=== PATIENT | male | born 1960 | race Caucasian/White ===

== ENCOUNTER → 2017-06-24 11:40 | Outpatient (CLI) | payer OTHER, SELFPAY ==
[2017-06-24 11:56] LABS: Basophils # 0.1 K/mm3 (0-0.2); Basophils % 1.1 % (0.1-2.0); Eosinophils # 0.2 K/mm3 (0.0-0.4); Eosinophils % 2.3 % (0.1-12.0); Hematocrit 40.9 % (42.0-52.0); Hemoglobin 12.8 g/dL (14.1-18.0); Lymphocytes # 2.1 K/mm3 (0.7-4.5); Lymphocytes % 31.3 K/mm3 (10-50); Mean Corpuscular HGB Conc 31.3 g/dL (31.8-35.4); Mean Corpuscular Hemoglobin 32.6 pg (27.0-31.2); Mean Platelet Volume 8.1 fl (7.4-10.4); Monocytes # 0.6 K/mm3 (0.1-1.0); Monocytes % 9.4 % (1.7-9.3); Neutrophils # 3.7 K/mm3 (1.8-7.8); Platelet Count 370 K/mm3 (142-424); Red Blood Count 3.93 M/mm3 (4.60-6.20); Red Cell Distribution Width 13.1 % (11.5-17.5); White Blood Count 6.7 K/mm3 (4.8-10.8)
[2017-06-24 14:18] LABS: Alanine Aminotransferase 21 U/L (12-78); Albumin Level 3.4 gm/dL (3.4-5.0); Albumin/Globulin Ratio 0.9 (1.1-1.8); Alkaline Phosphatase 68 U/L (46-116); Anion Gap 13.3 mEq/L (5-15); Aspartate Amino Transferase 11 U/L (15-37); Bilirubin,Total 0.6 mg/dL (0.2-1.0); Blood Urea Nitrogen 13 mg/dL (7-18); Calcium 9.1 mg/dL (8.5-10.1); Carbon Dioxide 28 mmol/L (21.0-32.0); Chloride 102 mmol/L (98-107); Creatinine,Serum 0.87 mg/dL (0.70-1.30); Estimated Glomerular Filt Rate 90 ml/min (>60); GFR (African American) 109 ML/MIN (>60); Globulin 3.6 gm/dl (1.3-3.2); Glucose 133 mg/dL (74-106); Potassium 5.3 mmoL/L (3.5-5.1); Sodium 138 mmol/L (136-145)
[2017-06-26 12:11] LABS: HBV IU/mL HBV DNA not detected IU/mL (.)
== END ==
PROVIDERS: PCP Emergency Medicine; Visit Provider Nurse Practitioner Family
DX: B18.2 Chronic viral hepatitis C (principal); Z79.899 Other long term (current) drug therapy
CPT/HCPCS: 36415; 80053; 85025; 87517

== ENCOUNTER → 2017-08-09 10:33 | Outpatient (CLI) | payer OTHER, SELFPAY ==
[2017-08-09 11:16] LABS: Alanine Aminotransferase 17 U/L (12-78); Albumin Level 3.6 gm/dL (3.4-5.0); Albumin/Globulin Ratio 0.9 (1.1-1.8); Alkaline Phosphatase 86 U/L (46-116); Anion Gap 10.9 mEq/L (5-15); Aspartate Amino Transferase 11 U/L (15-37); Bilirubin,Total 0.6 mg/dL (0.2-1.0); Blood Urea Nitrogen 17 mg/dL (7-18); Calcium 9.2 mg/dL (8.5-10.1); Carbon Dioxide 30 mmol/L (21.0-32.0); Chloride 99 mmol/L (98-107); Creatinine,Serum 1.07 mg/dL (0.70-1.30); Estimated Glomerular Filt Rate 71 ml/min (>60); GFR (African American) 86 ML/MIN (>60); Globulin 4.1 gm/dl (1.3-3.2); Glucose 327 mg/dL (74-106); Potassium 4.9 mmoL/L (3.5-5.1); Sodium 135 mmol/L (136-145); Total Protein,Serum 7.7 gm/dL (6.4-8.2)
[2017-08-09 11:32] LABS: Basophils # 0.1 K/mm3 (0-0.2); Basophils % 0.8 % (0.1-2.0); Eosinophils # 0.2 K/mm3 (0.0-0.4); Eosinophils % 2.8 % (0.1-12.0); Hematocrit 42.1 % (42.0-52.0); Hemoglobin 13.4 g/dL (14.1-18.0); Lymphocytes # 2.5 K/mm3 (0.7-4.5); Lymphocytes % 33.9 K/mm3 (10-50); Mean Corpuscular HGB Conc 31.7 g/dL (31.8-35.4); Mean Corpuscular Hemoglobin 33.4 pg (27.0-31.2); Mean Corpuscular Volume 105.2 fl (80-94); Monocytes # 0.7 K/mm3 (0.1-1.0); Monocytes % 9.1 % (1.7-9.3); Neutrophils # 3.9 K/mm3 (1.8-7.8); Neutrophils % 53.6 % (37.0-80.0); Platelet Count 382 K/mm3 (142-424); Red Cell Distribution Width 12.7 % (11.5-17.5); White Blood Count 7.2 K/mm3 (4.8-10.8)
== END ==
PROVIDERS: Visit Provider Nurse Practitioner Family
DX: B18.2 Chronic viral hepatitis C (principal); Z79.899 Other long term (current) drug therapy
CPT/HCPCS: 36415; 80053; 85025; 87522

== ENCOUNTER 2017-08-18 19:41 | Emergency (ER) | payer OTHER, SELFPAY ==
[2017-08-18 19:42] VITALS: BP 158/87; PULSE 101; RESP 20; TEMP 39.6; O2SAT 95; BMI 20.9
--- NOTE | 2017-08-18 19:59 | XR_ITS ---
XR chest 2V HISTORY: ITS.REASON: SOA ORDERING PHYSICIAN: Hola Esquivel MD PATIENT AGE: 57 years COMPARISON: 06/16/2015 FINDINGS: The cardiomediastinal silhouette and pulmonary vascularity are within normal limits. There is chronic coarsening of bronchovascular markings consistent with COPD/chronic bronchitis. No lobar consolidation or collapse. Old granulomatous disease.. No acute bony abnormalities. IMPRESSION: COPD/chronic bronchitis, no change with no acute finding
--- NOTE | 2017-08-18 20:20 | HMH.EDSOB ---
ED Disposition Clinical Impression: Flu Disposition: Home, Self-Care Condition on Discharge: Good Instructions: Influenza Additional Instructions: advil/tyenol and use meds and see pcp for followup Prescriptions: Oseltamivir Phosphate [Tamiflu 75mg Capsule] 75 mg PO BID #10 cap Referrals: Leandra Bassett APRN [Primary Care Provider] - - Critical Care Critical Care Time: No Attestation: On , the high probability of a clinically significant, sudden or life threatening deterioration of the following system(s) required my full and direct attention, intervention and personal management. The time I documented below is in addition to time spent performing reported procedures but includes the following listed in this critical care notation. Medical Decision Making - Medical Records Medical records reviewed: Yes: I reviewed the patient's medical records. - Aung Inquiry Pt receiving controlled substance: No Vital Signs: 08/18/17 19:42 08/18/17 20:40 Temperature 103.3 F H 103.1 F H Temperature Source Temporal Artery Scan Temporal Artery Scan Pulse Rate [Right Brachial] 101 H 102 H Respiratory Rate 20 18 Blood Pressure [Right Arm] 158/87 131/76 Blood Pressure Mean [Right Arm] 110 94 02 Sat by Pulse Oximetry 95 92 L Oxygen Delivery Method Nasal Cannula Nasal Cannula Oxygen Flow Rate (LPM) 2 2 - Lab Data Lab results reviewed: Yes: I reviewed the patient's lab results. Lab Results 08/18/17 20:08: Influenza Type A Ag Positive A, Influenza Type B Ag Negative, Group A Strep Rapid Negative 08/18/17 20:40: WBC 8.0, RBC 3.82 L, Hgb 12.8 L, Hct 39.1 L, MCV 102.3 H, MCH 33.5 H, MCHC 32.7, RDW 12.6, Plt Count 247, MPV 8.2, Neut % (Auto) 75.2, Lymph % (Auto) 11.1, [place] % (Auto) 12.8 H, Eos % (Auto) 0.3, Baso % (Auto) 0.6, Neut # (Auto) 6.0, Lymph # (Auto) 0.9, [place] # (Auto) 1.0, Eos # (Auto) 0.0, Baso # (Auto) 0.0 08/18/17 20:40: Sodium 128 L, Potassium 4.6, Chloride 93 L, Carbon Dioxide 27, Anion Gap 12.6, BUN 19 H, Creatinine 1.14, Estimated Creat Clear 71, Estimated GFR 66, Est GFR ( Amer) 80, Glucose 287 H, Calcium 8.8, Total Bilirubin 0.8, AST 18, ALT 19, Alkaline Phosphatase 69, Total Creatine Kinase 144, CK-MB (CK-2) < 0.5, CK-MB (CK-2) Rel Index 0.3, Troponin I < 0.02, Total Protein 8.1, Albumin 3.7, Globulin 4.4 H, Albumin/Globulin Ratio 0.8 L 08/18/17 20:40: Lactic Acid 2.8 H Result diagrams: 08/18/17 20:40 08/18/17 20:40 Orders (Tests/Meds): ED MEDICATIONS Generic Name Dose Route Start Last Admin Trade Name Freq PRN Reason Stop Dose Admin Albuterol Sulfate 2 puffs 08/18/17 21:15 Proventil-Hfa 90mcg/Puff Inhaler IH 09/17/17 21:14 Q6HP PRN Shortness Of Breath Discontinued Medications Generic Name Dose Route Start Last Admin Trade Name Freq PRN Reason Stop Dose Admin Acetaminophen 1,000 mg 08/18/17 19:59 08/18/17 20:02 Tylenol 500mg Tablet PO 08/18/17 20:00 1,000 mg ONCE ONE Administration Sodium Chloride 1,000 mls @ 999 mls/hr 08/18/17 20:30 08/18/17 20:36 Sod Chlor 0.9% 1000ml Bag IV 08/18/17 21:30 999 mls/hr .Q1H1M HUMBERTO Administration Ibuprofen 800 mg 08/18/17 19:59 08/18/17 20:02 Motrin 400mg Tablet PO 08/18/17 20:00 800 mg ONCE ONE Administration Miscellaneous 1 unit 08/18/17 21:15 Aerochamber/Optihaler MC 08/18/17 21:16 ONCE ONE ORDERS Category Date Time Status XR chest 2V Stat Exams 08/18/17 19:59 Taken Blood Culture Stat Micro 08/18/17 20:40 Received Sputum Culture & Gram Stain Stat Micro 08/18/17 21:01 Ordered Strep Screen Confirmation Stat Micro 08/18/17 20:08 Received ECG Request by /Raj Stat Y 08/18/17 19:59 Ordered - Radiology Data #1 Image(s): Chest Image Reviewed: Yes I reviewed the patient's radiology image Preliminary Findings: Normal/NAD - ECG Data Tracing #1 I reviewed this ECG and interpreted as documented below: Normal Sinus Rhythm: Yes Arrhythmias pres
[2017-08-18 20:40] VITALS: BP 131/76; PULSE 102; RESP 18; TEMP 39.5; O2SAT 92
[2017-08-18 20:44] LABS: Strep Scrn Group A (Rapid) Negative (Negative)
[2017-08-18 20:57] LABS: Basophils % 0.6 % (0.1-2.0); Eosinophils % 0.3 % (0.1-12.0); Hematocrit 39.1 % (42.0-52.0); Hemoglobin 12.8 g/dL (14.1-18.0); Lymphocytes # 0.9 K/mm3 (0.7-4.5); Lymphocytes % 11.1 K/mm3 (10-50); Mean Corpuscular HGB Conc 32.7 g/dL (31.8-35.4); Mean Corpuscular Hemoglobin 33.5 pg (27.0-31.2); Mean Corpuscular Volume 102.3 fl (80-94); Mean Platelet Volume 8.2 fl (7.4-10.4); Monocytes % 12.8 % (1.7-9.3); Neutrophils % 75.2 % (37.0-80.0); Platelet Count 247 K/mm3 (142-424); Red Blood Count 3.82 M/mm3 (4.60-6.20); Red Cell Distribution Width 12.6 % (11.5-17.5)
--- NOTE | 2017-08-18 20:59 | PC.NURSE ---
PT ARRIVED WITH THIS IV WAS PLACED PER EMS; LAB ALSO DRAWN X1 HERE VIA [facility].
[2017-08-18 21:21] LABS: Lactic Acid 2.8 mmol/L (0.4-2.0)
[2017-08-18 21:27] LABS: Alanine Aminotransferase 19 U/L (12-78); Albumin Level 3.7 gm/dL (3.4-5.0); Albumin/Globulin Ratio 0.8 (1.1-1.8); Alkaline Phosphatase 69 U/L (46-116); Anion Gap 12.6 mEq/L (5-15); Aspartate Amino Transferase 18 U/L (15-37); Bilirubin,Total 0.8 mg/dL (0.2-1.0); Blood Urea Nitrogen 19 mg/dL (7-18); Calcium 8.8 mg/dL (8.5-10.1); Carbon Dioxide 27 mmol/L (21.0-32.0); Chloride 93 mmol/L (98-107); Creatine Kinase 144 U/L (39-308); Creatinine Clearance Estimated 71 mL/min (0-300); Creatinine,Serum 1.14 mg/dL (0.70-1.30); Estimated Glomerular Filt Rate 66 ml/min (>60); GFR (African American) 80 ML/MIN (>60); Globulin 4.4 gm/dl (1.3-3.2); Glucose 287 mg/dL (74-106); Potassium 4.6 mmoL/L (3.5-5.1); Sodium 128 mmol/L (136-145); Total Protein,Serum 8.1 gm/dL (6.4-8.2); Troponin I < 0.02 ng/ml (0.00-0.06)
[2017-08-18 21:29] LABS: CKMB Relative Index 0.3 U/L (0-4.0); Creatine Kinase MB < 0.5 ng/ml (0.0-3.6)
[2017-08-18 21:40] VITALS: BP 131/76; PULSE 102; RESP 16; TEMP 38.6; O2SAT 95
[2017-08-18 22:54] VITALS: BP 117/71; PULSE 88; RESP 14; TEMP 37.2; O2SAT 92
--- NOTE | 2017-08-18 23:27 | PC.NURSE ---
PT RESTING IN BED AT THIS TIME, NO SIGNS OF DISTRESS NOTED.
[2017-08-19 00:51] LABS: Reflex Lactic Add Lactic Reflex
[2017-08-19 01:24] VITALS: BP 133/82; PULSE 89; RESP 18; TEMP 37.6; O2SAT 94
== END 2017-08-19 01:26 | disposition home or self-care (01) ==
PROVIDERS: Emergency Provider Emergency Medicine; PCP Nurse Practitioner Family
DX: J10.1 Influenza due to other identified influenza virus with other respiratory manifestations (principal); Z88.0 Allergy status to penicillin
CPT/HCPCS: 71046; 80053; 82550; 82553; 83605; 84484; 85025; 87040; 87070; 87077; 87205; 87275; 87276; 87430; 93005; 96365; 99284

== ENCOUNTER 2017-08-25 17:31 | Inpatient (IN) | payer OTHER, SELFPAY ==
[2017-08-25] VITALS (7 sets, daily range): BP systolic 90–98; BP diastolic 47–68; PULSE 74–89; RESP 16–22; TEMP 36.5–37.1; O2SAT 90–95; BMI 20.9; BMI 19.3
--- NOTE | 2017-08-25 18:03 | XR_ITS ---
XR abdomen min 2V COMPARISON: None HISTORY: Vomiting TECHNIQUE: KUB and upright abdomen FINDINGS: The upright film again shows the ill-defined pneumonic infiltrates in the left lower lobe and in the right perihilar region and right upper lobe. There is gas and stool in the transverse colon and splenic flexure and proximal descending colon. There is minimal scattered small bowel gas noted but there are no dilated loops and there are no significant air-fluid levels. No abnormal soft tissue shadows and is no free air. There is a orthopedic pin in the left femoral head and neck. IMPRESSION: Essentially nondiagnostic abdomen
--- NOTE | 2017-08-25 18:03 | XR_ITS ---
XR chest 2V COMPARISON: PA and lateral chest 08/18/2017 HISTORY: Fever and cough TECHNIQUE: PA and lateral chest FINDINGS: There is a patchy ill-defined pneumonic infiltrate in the right perihilar region and extending into the posterior segment right upper lobe. There also is minimal infiltrate in right middle lobe and right lower lobe. There may be due to minimal involvement of the left lower lobe as well. The left upper lung field is clear. Cardiac size is normal. IMPRESSION: Definite interval change from the previous chest film now with diffuse pneumonic infiltrates involving the right upper lobe and right lower lobe and minimally involving the right middle lobe and left lower lobe and suggest continued close follow-up
--- NOTE | 2017-08-25 18:06 | HMH.EDWEAK ---
ED Disposition Clinical Impression: Viral syndrome, Dehydration, Diabetes, Pneumonia, Tobacco abuse Disposition: Still a Patient Condition on Discharge: Fair Referrals: Alex Kaye MD [Primary Care Provider] - - Critical Care Critical Care Time: No Attestation: On 08/25/17, the high probability of a clinically significant, sudden or life threatening deterioration of the following system(s) required my full and direct attention, intervention and personal management. The time I documented below is in addition to time spent performing reported procedures but includes the following listed in this critical care notation. Medical Decision Making - Aung Inquiry Pt receiving controlled substance: No Aung was queried for this patient: No Vital Signs: 08/25/17 17:36 Temperature 97.7 F Temperature Source Oral Pulse Rate [Left Radial] 89 Respiratory Rate 22 Blood Pressure [Right Arm] 98/68 Blood Pressure Mean [Right Arm] 78 Blood Pressure Position [Right Arm] Supine 02 Sat by Pulse Oximetry 90 L Oxygen Delivery Method Room Air - Lab Data Lab Results 08/25/17 18:00: WBC 22.1 H*, RBC 3.62 L, Hgb 12.1 L, Hct 37.4 L, MCV 103.1 H, MCH 33.4 H, MCHC 32.4, RDW 12.5, Plt Count 368, MPV 9.9, Neut % (Auto) 87.5 H, Lymph % (Auto) 7.2 L, [place] % (Auto) 5.1, Eos % (Auto) 0.1, Baso % (Auto) 0.1, Neut # (Auto) 19.4 H, Lymph # (Auto) 1.6, [place] # (Auto) 1.1 H, Eos # (Auto) 0.0, Baso # (Auto) 0.0 08/25/17 18:00: Sodium 127 L, Potassium 4.6, Chloride 92 L, Carbon Dioxide 25, Anion Gap 14.6, BUN 31 H, Creatinine 1.11, Estimated Creat Clear 73, Estimated GFR 68, Est GFR ( Amer) 83, Glucose 269 H, Calcium 9.5, Total Bilirubin 1.2 H, AST 15, ALT 12, Alkaline Phosphatase 84, Troponin I < 0.02, Total Protein 7.6, Albumin 2.5 L, Globulin 5.1 H, Albumin/Globulin Ratio 0.5 L, Lipase 117, Plasma/Serum Alcohol 0 08/25/17 18:00: Lactic Acid 2.5 H 08/25/17 18:00: Magnesium 1.5 08/25/17 18:00: Acetone Level None detected 08/25/17 18:10: Specimen Source Right radial, O2 % 28%, ABG pH 7.44, ABG pCO2 33.9 L, ABG pO2 67.8 L, ABG HCO3 22.5, ABG Total CO2 23.5, ABG O2 Saturation 93, ABG Base Excess -1.6, Dominik Test Acceptable Result diagrams: 08/25/17 18:00 08/25/17 18:00 Orders (Tests/Meds): ED MEDICATIONS Generic Name Dose Route Start Last Admin Trade Name Freq PRN Reason Stop Dose Admin Levofloxacin/Dextrose 750 mg in 150 mls @ 100 mls/hr 08/25/17 18:15 Levofloxacin 750mg/150ml Premix IV 09/08/17 18:14 Q24H HUMBERTO Protocol Discontinued Medications Generic Name Dose Route Start Last Admin Trade Name Freq PRN Reason Stop Dose Admin Sodium Chloride 1,000 mls @ 999 mls/hr 08/25/17 18:15 Sod Chlor 0.9% 1000ml Bag IV 08/25/17 19:15 .Q1H1M HUMBERTO ORDERS Category Date Time Status XR abdomen min 2V Stat Exams 08/25/17 18:03 Taken XR chest 2V Stat Exams 08/25/17 18:03 Taken Complete Blood Count Auto Diff Stat Lab 08/25/17 18:00 Results Drug Screen,Urine Stat Lab 08/25/17 18:04 Ordered UA [Urinalysis and Microscopic] Stat Lab 08/25/17 18:03 Ordered Blood Culture Stat Micro 08/25/17 18:00 Received Medical Decision Narrative: i SPOIKE WITH Jocelyne WILL BE ADMITTED AND NOTIFIED DR Bull. Weakness HPI - General Chief complaint: Upper Respiratory Infection Stated complaint: rizo,sob,cough Time Seen by Provider: 08/25/17 17:45 Mode of Arrival: Family Vehicle Limitations: No Limitations Description of Symptoms (Recalled from ER Triage Doc. by RN): PT STATES HE WAS DIAGNOSED WITH THE FLU A WEEK AGO AND STATES HIS SYMPTOMS ARE NOT IMPROVING. PT FINISHED TAMIFLU. - History of Present Illness HPI Narrative: 57 years old male insulin-dependent diabetes with recent diagnosis of influenza who presented to the ED complaining of generalized weakness. He finished his Tamiflu but he was vomiting 10 times since he was diagonally decreased urine output. Upon arrival his systolic blood pr
--- NOTE | 2017-08-25 18:09 | ED_ITS ---
ED Disposition Clinical Impression: Viral syndrome, Dehydration, Diabetes, Pneumonia, Tobacco abuse Disposition: Still a Patient Condition on Discharge: Fair Referrals: Alex Kaye MD [Primary Care Provider] - - Critical Care Critical Care Time: No Attestation: On 08/25/17, the high probability of a clinically significant, sudden or life threatening deterioration of the following system(s) required my full and direct attention, intervention and personal management. The time I documented below is in addition to time spent performing reported procedures but includes the following listed in this critical care notation. Medical Decision Making - Aung Inquiry Pt receiving controlled substance: No Aung was queried for this patient: No Vital Signs: 08/25/17 17:36 Temperature 97.7 F Temperature Source Oral Pulse Rate [Left Radial] 89 Respiratory Rate 22 Blood Pressure [Right Arm] 98/68 Blood Pressure Mean [Right Arm] 78 Blood Pressure Position [Right Arm] Supine 02 Sat by Pulse Oximetry 90 L Oxygen Delivery Method Room Air - Lab Data Lab Results 08/25/17 18:00: WBC 22.1 H*, RBC 3.62 L, Hgb 12.1 L, Hct 37.4 L, MCV 103.1 H, MCH 33.4 H, MCHC 32.4, RDW 12.5, Plt Count 368, MPV 9.9, Neut % (Auto) 87.5 H, Lymph % (Auto) 7.2 L, [place] % (Auto) 5.1, Eos % (Auto) 0.1, Baso % (Auto) 0.1, Neut # (Auto) 19.4 H, Lymph # (Auto) 1.6, [place] # (Auto) 1.1 H, Eos # (Auto) 0.0 , Baso # (Auto) 0.0 08/25/17 18:00: Sodium 127 L, Potassium 4.6, Chloride 92 L, Carbon Dioxide 25, Anion Gap 14.6, BUN 31 H, Creatinine 1.11, Estimated Creat Clear 73, Estimated GFR 68, Est GFR ( Amer) 83, Glucose 269 H, Calcium 9.5, Total Bilirubin 1.2 H, AST 15, ALT 12, Alkaline Phosphatase 84, Troponin I < 0.02, Total Protein 7.6, Albumin 2.5 L, Globulin 5.1 H, Albumin/Globulin Ratio 0.5 L, Lipase 117, Plasma/Serum Alcohol 0 08/25/17 18:00: Lactic Acid 2.5 H 08/25/17 18:00: Magnesium 1.5 08/25/17 18:00: Acetone Level None detected 08/25/17 18:10: Specimen Source Right radial, O2 % 28%, ABG pH 7.44, ABG pCO2 33.9 L, ABG pO2 67.8 L, ABG HCO3 22.5, ABG Total CO2 23.5, ABG O2 Saturation 93 , ABG Base Excess -1.6, Dominik Test Acceptable Result diagrams: 08/25/17 18:00 08/25/17 18:00 Orders (Tests/Meds): ED MEDICATIONS Generic Name Dose Route Start Last Admin Trade Name Freq PRN Reason Stop Dose Admin Levofloxacin/Dextrose 750 mg in 150 mls @ 100 mls/hr 08/25/17 18:15 Levofloxacin 750mg/150ml Premix IV 09/08/17 18:14 Q24H HUMBERTO Protocol Discontinued Medications Generic Name Dose Route Start Last Admin Trade Name Freq PRN Reason Stop Dose Admin Sodium Chloride 1,000 mls @ 999 mls/hr 08/25/17 18:15 Sod Chlor 0.9% 1000ml Bag IV 08/25/17 19:15 .Q1H1M HUMBERTO ORDERS Category Date Time Status XR abdomen min 2V Stat Exams 08/25/17 18:03 Taken XR chest 2V Stat Exams 08/25/17 18:03 Taken Complete Blood Count Auto Diff Stat Lab 08/25/17 18:00 Results Drug Screen,Urine Stat Lab 08/25/17 18:04 Ordered UA [Urinalysis and Microscopic] Stat Lab 08/25/17 18:03 Ordered Blood Culture Stat Micro 08/25/17 18:00 Received Medical Decision Narrative: i SPOIKE WITH Jocelyne WILL BE ADMITTED AND NOTIFIED DR Bull. Weakness HPI - General Chief complaint
[2017-08-25 18:23] LABS: ABG Base Excess -1.6 mmol/L (-2.4-2.3); ABG HCO3 22.5 mmhg (22.0-26.0); ABG Oxygen Saturation 93 % (90-100); ABG PCO2 33.9 mmhg (35.0-45.0); ABG PH 7.44 mmol/L (7.35-7.45); ABG PO2 67.8 mmhg (80-100); ABG TCO2 23.5 mmhg (23-27)
[2017-08-25 18:24] LABS: Oxygen 28% %
[2017-08-25 18:25] LABS: Allen's Test Acceptable; Source Right Radial
[2017-08-25 18:34] LABS: Basophils % 0.1 % (0.1-2.0); Eosinophils % 0.1 % (0.1-12.0); Hematocrit 37.4 % (42.0-52.0); Hemoglobin 12.1 g/dL (14.1-18.0); Lymphocytes # 1.6 K/mm3 (0.7-4.5); Lymphocytes % 7.2 K/mm3 (10-50); Mean Corpuscular HGB Conc 32.4 g/dL (31.8-35.4); Mean Corpuscular Hemoglobin 33.4 pg (27.0-31.2); Mean Corpuscular Volume 103.1 fl (80-94); Mean Platelet Volume 9.9 fl (7.4-10.4); Monocytes # 1.1 K/mm3 (0.1-1.0); Monocytes % 5.1 % (1.7-9.3); Neutrophils # 19.4 K/mm3 (1.8-7.8); Neutrophils % 87.5 % (37.0-80.0); Platelet Count 368 K/mm3 (142-424); Red Blood Count 3.62 M/mm3 (4.60-6.20); Red Cell Distribution Width 12.5 % (11.5-17.5); White Blood Count 22.1 K/mm3 (4.8-10.8)
[2017-08-25 18:39] LABS: Magnesium 1.5 mg/dL (1.4-2.2)
[2017-08-25 18:42] LABS: MANUAL DIFFERENTIAL MANUAL DIFFERENTIAL (MANUAL DIFF)
[2017-08-25 18:47] LABS: Alanine Aminotransferase 12 U/L (12-78); Albumin Level 2.5 gm/dL (3.4-5.0); Albumin/Globulin Ratio 0.5 (1.1-1.8); Alkaline Phosphatase 84 U/L (46-116); Anion Gap 14.6 mEq/L (5-15); Aspartate Amino Transferase 15 U/L (15-37); Bilirubin,Total 1.2 mg/dL (0.2-1.0); Blood Urea Nitrogen 31 mg/dL (7-18); Calcium 9.5 mg/dL (8.5-10.1); Carbon Dioxide 25 mmol/L (21.0-32.0); Chloride 92 mmol/L (98-107); Creatinine Clearance Estimated 73 mL/min (0-300); Creatinine,Serum 1.11 mg/dL (0.70-1.30); Estimated Glomerular Filt Rate 68 ml/min (>60); Ethyl Alcohol 0 mg/dL (0-99); GFR (African American) 83 ML/MIN (>60); Globulin 5.1 gm/dl (1.3-3.2); Glucose 269 mg/dL (74-106); Lipase 117 u/L (73-393); Potassium 4.6 mmoL/L (3.5-5.1); Sodium 127 mmol/L (136-145); Total Protein,Serum 7.6 gm/dL (6.4-8.2); Troponin I < 0.02 ng/ml (0.00-0.06)
[2017-08-25 18:49] LABS: Acetone, Serum (Rapid) None Detected (None Detect)
[2017-08-25 18:53] LABS: Lactic Acid 2.5 mmol/L (0.4-2.0)
--- NOTE | 2017-08-25 19:42 | PC.NURSE ---
Report called to Alie
[2017-08-25 20:23] LABS: Lymphocytes % 2 % (10-50); Monocytes % 4 % (2-9); Neutrophils % 94 % (42-76); Total Cells Counted 100
[2017-08-25 20:24] LABS: Platelet Estimate Normal; RBC Morphology Normal
--- NOTE | 2017-08-25 20:42 | PC.NURSE ---
LATE ENTRY- UPON AMISSION PT WAS GIVEN MEASURING HAT & URINIAl. PT WAS EDUCATIED & INSTRUCTED TO USE FOR VOIDING FOR OUTPUT & MONITORING INPUT.
[2017-08-25 22:30] LABS: Reflex Lactic Add Lactic Reflex
[2017-08-25 23:25] LABS: Lactic Acid Follow Up (RFLX 1) 2.5 (0.4-2.0)
--- NOTE | 2017-08-25 23:26 | PC.NURSE ---
NURSE IS OBTAING PTS BP
[2017-08-25 23:30] LABS: POC Glucose,Bedside 447 (70-110)
[2017-08-26] VITALS (16 sets, daily range): BP systolic 91–107; BP diastolic 48–66; PULSE 68–87; RESP 16–24; TEMP 36.7–37.8; O2SAT 85–95; BMI 19.2
[2017-08-26 01:05] LABS: Reflex Lactic (2 hrs) Add Lactic Reflex
[2017-08-26 01:58] LABS: Lactic Acid Follow up (RFLX 2) 2.4 (0.4-2.0)
--- NOTE | 2017-08-26 03:41 | PC.NURSE ---
Since stabilizing b/p pt has rested comfortably in bed, states he does not have much pain but aches all over. complains of loose cough and is producing yellowish/brown sputum, specimen sent to lab. Pt complains of mild SOA, requested one PRN duoneb this shift. Pt girlfriend remains at bedside. Pt had episode of incontinence with bowels when first admitted, he was very concerned and stated I don't know whats wrong, I've never done this before. Pt B/P stable but still hypotensive, MAP remains over 65 post bolus of NS per MD order (see provider notification). Rhonchi noted during lung auscultation. BS active in all 4 qauds. A&Ox3. Pt tolerating 2L NC well, unable to wean at this time. No acute distress noted. Will continue to monitor.
--- NOTE | 2017-08-26 04:19 | PC.NURSE ---
nurse notified of pts temp & bp
[2017-08-26 06:27] LABS: Basophils % 0.1 % (0.1-2.0); Eosinophils % 0.2 % (0.1-12.0); Hematocrit 32.8 % (42.0-52.0); Lymphocytes % 11.4 K/mm3 (10-50); Mean Corpuscular Hemoglobin 33.2 pg (27.0-31.2); Mean Corpuscular Volume 103.5 fl (80-94); Mean Platelet Volume 9.2 fl (7.4-10.4); Monocytes # 1.2 K/mm3 (0.1-1.0); Monocytes % 6.8 % (1.7-9.3); Neutrophils # 14.6 K/mm3 (1.8-7.8); Neutrophils % 81.5 % (37.0-80.0); Platelet Count 378 K/mm3 (142-424); Red Blood Count 3.17 M/mm3 (4.60-6.20); Red Cell Distribution Width 12.5 % (11.5-17.5)
[2017-08-26 06:31] LABS: POC Glucose,Bedside 270 (70-110)
[2017-08-26 06:36] LABS: MANUAL DIFFERENTIAL MANUAL DIFFERENTIAL (MANUAL DIFF)
[2017-08-26 06:46] LABS: Alanine Aminotransferase 10 U/L (12-78); Albumin Level 1.8 gm/dL (3.4-5.0); Albumin/Globulin Ratio 0.4 (1.1-1.8); Alkaline Phosphatase 68 U/L (46-116); Anion Gap 10.2 mEq/L (5-15); Aspartate Amino Transferase 11 U/L (15-37); Bilirubin,Total 0.8 mg/dL (0.2-1.0); Blood Urea Nitrogen 25 mg/dL (7-18); Carbon Dioxide 25 mmol/L (21.0-32.0); Chloride 98 mmol/L (98-107); Creatinine Clearance Estimated 88 mL/min (0-300); Creatinine,Serum 0.84 mg/dL (0.70-1.30); Estimated Glomerular Filt Rate 94 ml/min (>60); GFR (African American) 114 ML/MIN (>60); Globulin 4.1 gm/dl (1.3-3.2); Glucose 267 mg/dL (74-106); Hemoglobin 10.6 g/dL (14.1-18.0); Magnesium 1.4 mg/dL (1.4-2.2); Phosphorous 2.3 mg/dL (2.4-4.9); Potassium 4.2 mmoL/L (3.5-5.1); Sodium 129 mmol/L (136-145); Total Protein,Serum 5.9 gm/dL (6.4-8.2)
[2017-08-26 06:55] LABS: Calcium 8.4 mg/dL (8.5-10.1)
--- NOTE | 2017-08-26 07:32 | PC.NURSE ---
REPORT GIVEN TO Nomi MORROW W/C
--- NOTE | 2017-08-26 07:36 | PC.NURSE ---
REPORT TO Juan CONN RN
--- NOTE | 2017-08-26 07:47 | HMH.PHAVTE ---
[facility] Pharmacy VTE Monitoring - Patient Demographics Admission date: 08/25/17 Report Date: 08/26/17 Time: 07:48 Allergies/Adverse Reactions: Patient Allergies Penicillins [PENICILLINS] Allergy (Unknown, Verified 08/25/17 17:47) Height: 1.83 m Weight: 64.467 kg Patient Problems: Current Active Problems Viral syndrome (Acute) Dehydration (Acute) Pneumonia (Acute) Tobacco abuse (Acute) Diabetes mellitus (Acute) - VTE Risk Labs: VTE Related Lab Results Hgb 10.6 g/dL (14.1-18.0) L D 08/26/17 06:10 Hct 32.8 % (42.0-52.0) L 08/26/17 06:10 Plt Count 378 K/mm3 (142-424) 08/26/17 06:10 BUN 25 mg/dL (7-18) H 08/26/17 06:10 Creatinine 0.84 mg/dL (0.70-1.30) D 08/26/17 06:10 Estimated Creat Clear 88 mL/min (0-300) 08/26/17 06:10 Was VTE Risk Assessment Performed: Yes VTE Score: 2 VTE Risk Level: Very Low Risk Clinical Trial Participant: No - Prophylaxis VTE Prophylaxis Ordered?: Yes Types of VTE Prophylaxis: TEDS Knee High Location of Applied Device: Bilateral Lower Extremeties
[2017-08-26 08:29] LABS: Lymphocytes % 10 % (10-50); Monocytes % 8 % (2-9); Neutrophils % 80 % (42-76); Total Cells Counted 100
[2017-08-26 08:31] LABS: Macrocytosis 1+; Platelet Estimate Normal
--- NOTE | 2017-08-26 08:43 | HMH.HP ---
*Admission Date: 08/25/17 *Chief complaint: sob *History of present illness: 57 years old male insulin-dependent diabetes with recent diagnosis of influenza who presented to the ED complaining of generalized weakness. He finished his Tamiflu but he was vomiting x10 times since he was diagnosed with decreased urine output. Upon arrival to ER systolic blood pressure was 90/60 mmhg. [facility] History I have reviewed the patient's past medical history: Yes Medical History: Reports:: Diabetes Mellitus Type 1, Diabetes Mellitus Type 2, Hepatitis (C-cleared) Denies:: Cancer, Internal Pacemaker, MRSA Laterality Cases: Left: Other Other Surgeries: Yes: Cardiac Catheterization. No: Pacemaker Amputation: No Fractures: No - *Social History Educational Level: Completed GED/General Educational Development Smoking Status: Current every day smoker Tobacco Type: cigarettes # Packs/Day (cigarettes): 1 #Yrs smoked (if former smoker): 50 Alcohol Intake: former Alcohol Intake Frequency:: holidays/special occasions only Occupational Status: employed Housing: house Household Members: significant other - Psychiatric History Expresses thoughts of harming self/others: None Suicide Plan Description: No Plan *Family Hx:: Coronary Artery Disease, Diabetes Review of Systems - Constitutional Reports body ache(s), Reports chills, Reports fever(s), Reports weakness - Eyes Denies change in vision - ENT Denies change in voice - *Cardiovascular Reports shortness of breath, Denies chest pain with activity - *Respiratory Reports change in phlegm color, Reports chest congestion, Reports cough, Reports shortness of breath, Reports shortness of breath with activity - *Gastrointestinal Denies change in bowel habits - *Genitourinary Denies painful urination, Denies urinary frequency - *Musculoskeletal Reports body aches, Denies decreased muscle mass - Integumentary/Breasts Denies rash - *Neurologic Denies abnormal hearing - Psychiatric Denies anxiety - Endocrine Denies flushing - Hematologic/Lymphatic Denies enlarged lymph nodes - Allergic/Immunologic Denies lip swelling Meds Home Medications Medication Instructions Recorded Confirmed Type aspirin 81 mg tablet,delayed 81 mg PO DAILY tab 08/08/17 08/25/17 History release carvedilol 6.25 mg tablet 6.25 mg PO BID 08/08/17 08/25/17 History insulin lispro protamine-lispro 27 unit SUB-Q AC ml 08/08/17 08/25/17 History 100 unit/mL (75-25) subcutaneous susp lisinopril 2.5 mg tablet 2.5 mg PO DAILY tab 08/08/17 08/25/17 History metformin 1,000 mg tablet 1,000 mg PO BID 08/08/17 08/25/17 History nitroglycerin 0.4 mg sublingual 0.4 mg SUBLINGUAL Q5M PRN 08/08/17 08/25/17 History tablet simvastatin 5 mg tablet 5 mg PO QPM 08/08/17 08/25/17 History Insulin Lispro Protamin/Lispro 33 units SQ HS 08/25/17 08/25/17 History [Humalog Mix 75/25 100 Units/mL 10mL Vial] Omeprazole Magnesium [Prilosec Otc 20 mg PO DAILY 08/25/17 08/25/17 History 20mg Tab] raNITIdine HCl [Zantac] 150 mg PO DAILY 08/25/17 08/25/17 History Allergies Allergy/AdvReac Type Severity Reaction Status Date / Time Penicillins [PENICILLINS] Allergy Unknown Verified 08/25/17 17:47 Exam Vital signs and Labs for Last 24 Hours: Temp Pulse Resp BP Pulse Ox 98.1 F 76 20 93/55 92 L 08/26/17 07:50 08/26/17 07:50 08/26/17 07:50 08/26/17 07:50 08/26/17 08:00 Laboratory Results - last 24 hr 08/25/17 22:45: Lactic Acid Fup @ 4Hr 2.5 H 08/25/17 23:09: POC Glucose 447 H* 08/26/17 01:30: Lactic Acid Fup @ 2Hr 2.4 H 08/26/17 06:10: WBC 18.0 H, RBC 3.17 L, Hgb 10.6 L D, Hct 32.8 L, MCV 103.5 H, MCH 33.2 H, MCHC 32.0, RDW 12.5, Plt Count 378, MPV 9.2, Neut % (Auto) 81.5 H, Lymph % (Auto) 11.4, [place] % (Auto) 6.8, Eos % (Auto) 0.2, Baso % (Auto) 0.1, Neut # (Auto) 14.6 H, Lymph # (Auto) 2.0, [place] # (Auto) 1.2 H, Eos # (Auto) 0.0, Baso # (Auto) 0.0, Total Counted 100, Neutrophils %
--- NOTE | 2017-08-26 08:46 | P.HP_ITS ---
*Admission Date: 08/25/17 *Chief complaint: sob *History of present illness: 57 years old male insulin-dependent diabetes with recent diagnosis of influenza who presented to the ED complaining of generalized weakness. He finished his Tamiflu but he was vomiting x10 times since he was diagnosed with decreased urine output. Upon arrival to ER systolic blood pressure was 90/60 mmhg. [facility] History I have reviewed the patient's past medical history: Yes Medical History: Reports:: Diabetes Mellitus Type 1, Diabetes Mellitus Type 2, Hepatitis (C-cleared) Denies:: Cancer, Internal Pacemaker, MRSA Laterality Cases: Left: Other Other Surgeries: Yes: Cardiac Catheterization. No: Pacemaker Amputation: No Fractures: No - *Social History Educational Level: Completed GED/General Educational Development Smoking Status: Current every day smoker Tobacco Type: cigarettes # Packs/Day (cigarettes): 1 #Yrs smoked (if former smoker): 50 Alcohol Intake: former Alcohol Intake Frequency:: holidays/special occasions only Occupational Status: employed Housing: house Household Members: significant other - Psychiatric History Expresses thoughts of harming self/others: None Suicide Plan Description: No Plan *Family Hx:: Coronary Artery Disease, Diabetes Review of Systems - Constitutional Reports body ache(s), Reports chills, Reports fever(s), Reports weakness - Eyes Denies change in vision - ENT Denies change in voice - *Cardiovascular Reports shortness of breath, Denies chest pain with activity - *Respiratory Reports change in phlegm color, Reports chest congestion, Reports cough, Reports shortness of breath, Reports shortness of breath with activity - *Gastrointestinal Denies change in bowel habits - *Genitourinary Denies painful urination, Denies urinary frequency - *Musculoskeletal Reports body aches, Denies decreased muscle mass - Integumentary/Breasts Denies rash - *Neurologic Denies abnormal hearing - Psychiatric Denies anxiety - Endocrine Denies flushing - Hematologic/Lymphatic Denies enlarged lymph nodes - Allergic/Immunologic Denies lip swelling Meds Home Medications Medication Instructions Recorded Confirmed Type aspirin 81 mg tablet,delayed 81 mg PO DAILY tab 08/08/17 08/25/17 History release carvedilol 6.25 mg tablet 6.25 mg PO BID 08/08/17 08/25/17 History insulin lispro protamine-lispro 27 unit SUB-Q AC ml 08/08/17 08/25/17 History 100 unit/mL (75-25) subcutaneous susp lisinopril 2.5 mg tablet 2.5 mg PO DAILY tab 08/08/17 08/25/17 History metformin 1,000 mg tablet 1,000 mg PO BID 08/08/17 08/25/17 History nitroglycerin 0.4 mg sublingual 0.4 mg SUBLINGUAL Q5M PRN 08/08/17 08/25/17 History tablet simvastatin 5 mg tablet 5 mg PO QPM 08/08/17 08/25/17 History Insulin Lispro Protamin/Lispro 33 units SQ HS 08/25/17 08/25/17 History [Humalog Mix 75/25 100 Units/mL 10mL Vial] Omeprazole Magnesium [Prilosec Otc 20 mg PO DAILY 08/25/17 08/25/17 History 20mg Tab] raNITIdine HCl [Zantac] 150 mg PO DAILY 08/25/17 08/25/17 History Allergies Allergy/AdvReac Type Severity Reaction Status Date / Time Penicillins [PENICILLINS] Allergy Unknown Verified 08/25/17 17:47 Exam Vital signs and Labs for Last 24 Hours: Temp Pulse Resp BP Pulse Ox 9
--- NOTE | 2017-08-26 13:43 | PC.NURSE ---
TRANSITIONAL CARE TEAM BEDSIDE. NURSING, CASE MANAGEMENT, PHARMACY DIETARY AND INFECTION CONTROL IN ATTENDANCE. PT HAD NO ISSUES OR COMPLAINTS AND STATES THAT HI S PNEUMONIA IS IMPROVING.
--- NOTE | 2017-08-26 17:58 | PC.NURSE ---
PATIENT HAS BEEN RESTING IN BED T/O SHIFT WITH FAMILY AT BEDSIDE. LUNGS ARE DIMINISHED T/O. PATIENT HAS A DRY HACKY COUGH. PATIENT STATES THAT HE IS FEELING BETTER. PATIENT HAS A RESTING ROOM AIR SAT OF 88% THIS AFTERNOON. THIS EVENING HE WENT FOR A WALK IN THE [place] ON [address] AND BECAME WINDED HIS O2 SAT WAS 84% AT THAT TIME. PATIENT STATES THAT HE HAS SOME OUTPATIENT LAB WORK HE WOULD LIKE TO GET DONE WHILE HE IS IN THE HOSPITAL. THIS LAB WORK IS A FOLLOWUP FROM HIS HEP C DIAGNOSIS AND 8 WEEK TREATMENT. DENIES PAIN AT THIS TIME. CALL LIGHT WITHIN REACH WILL CONTINUE TO MONITOR
[2017-08-26 18:50] LABS: POC Glucose,Bedside 346 (70-110)
[2017-08-26 18:50] LABS: POC Glucose,Bedside 271 (70-110)
[2017-08-27] VITALS (9 sets, daily range): BP systolic 95–117; BP diastolic 57–72; PULSE 71–88; RESP 16–20; TEMP 36.6–37.6; O2SAT 92–100
[2017-08-27 01:53] LABS: POC Glucose,Bedside 168 (70-110)
--- NOTE | 2017-08-27 03:37 | PC.NURSE ---
Pt has rested well this shift with no complaints, denies SOA but states he still feels achy. Lung sounds clear. BS active in all 4 qauds. Tolerating 2L NC well. VSS. No acute distress noted, will continue to monitor.
[2017-08-27 06:14] LABS: POC Glucose,Bedside 131 (70-110)
[2017-08-27 07:06] LABS: Basophils % 0.2 % (0.1-2.0); Eosinophils # 0.1 K/mm3 (0.0-0.4); Eosinophils % 0.3 % (0.1-12.0); Hematocrit 34.5 % (42.0-52.0); Hemoglobin 11.1 g/dL (14.1-18.0); Lymphocytes # 2.4 K/mm3 (0.7-4.5); Lymphocytes % 13.9 K/mm3 (10-50); Mean Corpuscular HGB Conc 32.3 g/dL (31.8-35.4); Mean Corpuscular Hemoglobin 33.2 pg (27.0-31.2); Mean Corpuscular Volume 102.7 fl (80-94); Mean Platelet Volume 9.5 fl (7.4-10.4); Monocytes # 1.6 K/mm3 (0.1-1.0); Monocytes % 9.5 % (1.7-9.3); Neutrophils % 76.1 % (37.0-80.0); Platelet Count 505 K/mm3 (142-424); Red Blood Count 3.36 M/mm3 (4.60-6.20); Red Cell Distribution Width 12.5 % (11.5-17.5); White Blood Count 17.1 K/mm3 (4.8-10.8)
[2017-08-27 07:09] LABS: Alanine Aminotransferase 9 U/L (12-78); Albumin Level 1.8 gm/dL (3.4-5.0); Albumin/Globulin Ratio 0.4 (1.1-1.8); Alkaline Phosphatase 58 U/L (46-116); Anion Gap 9.9 mEq/L (5-15); Aspartate Amino Transferase 10 U/L (15-37); Bilirubin,Total 0.8 mg/dL (0.2-1.0); Blood Urea Nitrogen 16 mg/dL (7-18); Calcium 8.6 mg/dL (8.5-10.1); Carbon Dioxide 27 mmol/L (21.0-32.0); Chloride 101 mmol/L (98-107); Creatinine Clearance Estimated 108 mL/min (0-300); Creatinine,Serum 0.69 mg/dL (0.70-1.30); Estimated Glomerular Filt Rate 118 ml/min (>60); GFR (African American) 143 ML/MIN (>60); Globulin 4.4 gm/dl (1.3-3.2); Glucose 122 mg/dL (74-106); Potassium 3.9 mmoL/L (3.5-5.1); Sodium 134 mmol/L (136-145); Total Protein,Serum 6.2 gm/dL (6.4-8.2)
[2017-08-27 07:19] LABS: MANUAL DIFFERENTIAL MANUAL DIFFERENTIAL (MANUAL DIFF)
--- NOTE | 2017-08-27 07:47 | PC.NURSE ---
REPORT TO Juan CONN RN
--- NOTE | 2017-08-27 08:45 | HMH.ACPN2 ---
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 - pt with cough and o2 at this time Exam Vital signs and Labs for Last 24 Hours: Temp Pulse Resp BP Pulse Ox 98.2 F 82 16 112/64 100 08/27/17 07:45 08/27/17 07:45 08/27/17 07:45 08/27/17 07:45 08/27/17 07:45 Laboratory Results - last 24 hr 08/26/17 11:21: POC Glucose 346 H* 08/26/17 16:45: POC Glucose 271 H 08/26/17 20:17: POC Glucose 168 H 08/27/17 06:07: POC Glucose 131 H 08/27/17 06:10: WBC 17.1 H, RBC 3.36 L, Hgb 11.1 L, Hct 34.5 L, MCV 102.7 H, MCH 33.2 H, MCHC 32.3, RDW 12.5, Plt Count 505 H D, MPV 9.5, Neut % (Auto) 76.1, Lymph % (Auto) 13.9, [place] % (Auto) 9.5 H, Eos % (Auto) 0.3, Baso % (Auto) 0.2, Neut # (Auto) 13.0 H, Lymph # (Auto) 2.4, [place] # (Auto) 1.6 H, Eos # (Auto) 0.1, Baso # (Auto) 0.0 08/27/17 06:10: Sodium 134 L, Potassium 3.9, Chloride 101, Carbon Dioxide 27, Anion Gap 9.9, BUN 16 D, Creatinine 0.69 L, Estimated Creat Clear 108, Estimated GFR 118, Est GFR ( Amer) 143 D, Glucose 122 H D, Calcium 8.6, Total Bilirubin 0.8, AST 10 L, ALT 9 L, Alkaline Phosphatase 58, Total Protein 6.2 L, Albumin 1.8 L, Globulin 4.4 H, Albumin/Globulin Ratio 0.4 L I & O for Last 24 hours: Intake & Output 08/24/17 08/25/17 08/26/17 08/27/17 11:59 11:59 11:59 11:59 Intake Total 3151 / 3151 1375 / 1375 Output Total 1700 / 1700 1750 / 1750 Balance 1451 / 1451 -375 / -375 Weight 142 lb 2 oz 142 lb 2.006 oz Microbiology Reports for the Last 24 Hours: Microbiology 08/26/17 08:00 Sputum - Expectorated Sputum Gram Stain - Final - Constitutional no acute distress - *Routine HEENT Exam Head: Present: normocephalic Eye: Present: EOMI, PERRL ENT: Present: mucous membranes dry - *Routine Neck Exam Present: supple - *Routine Respiratory Exam Present: decreased breath sounds, rhonchi - *Routine Cardiovascular Exam Present: RRR, murmur. Absent: rubs - *Routine Abdominal Exam Present: soft - *Routine Extremities Exam Absent: calf tenderness - *Routine Skin Exam Present: intact - *Routine Neurological Exam Present: alert, oriented X3, CN II-XII intact - Routine Psychiatric Exam Present: normal affect
--- NOTE | 2017-08-27 08:48 | P.PN_ITS ---
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 - pt with cough and o2 at this time Exam Vital signs and Labs for Last 24 Hours: Temp Pulse Resp BP Pulse Ox 98.2 F 82 16 112/64 100 08/27/17 07:45 08/27/17 07:45 08/27/17 07:45 08/27/17 07:45 08/27/17 07:45 Laboratory Results - last 24 hr 08/26/17 11:21: POC Glucose 346 H* 08/26/17 16:45: POC Glucose 271 H 08/26/17 20:17: POC Glucose 168 H 08/27/17 06:07: POC Glucose 131 H 08/27/17 06:10: WBC 17.1 H, RBC 3.36 L, Hgb 11.1 L, Hct 34.5 L, MCV 102.7 H, MCH 33.2 H, MCHC 32.3, RDW 12.5, Plt Count 505 H D, MPV 9.5, Neut % (Auto) 76.1 , Lymph % (Auto) 13.9, [place] % (Auto) 9.5 H, Eos % (Auto) 0.3, Baso % (Auto) 0.2 , Neut # (Auto) 13.0 H, Lymph # (Auto) 2.4, [place] # (Auto) 1.6 H, Eos # (Auto) 0.1, Baso # (Auto) 0.0 08/27/17 06:10: Sodium 134 L, Potassium 3.9, Chloride 101, Carbon Dioxide 27, Anion Gap 9.9, BUN 16 D, Creatinine 0.69 L, Estimated Creat Clear 108, Estimated GFR 118, Est GFR ( Amer) 143 D, Glucose 122 H D, Calcium 8.6, Total Bilirubin 0.8, AST 10 L, ALT 9 L, Alkaline Phosphatase 58, Total Protein 6.2 L, Albumin 1.8 L, Globulin 4.4 H, Albumin/Globulin Ratio 0.4 L I & O for Last 24 hours: Intake & Output 08/24/17 08/25/17 08/26/17 08/27/17 11:59 11:59 11:59 11:59 Intake Total 3151 / 3151 1375 / 1375 Output Total 1700 / 1700 1750 / 1750 Balance 1451 / 1451 -375 / -375 Weight 142 lb 2 oz 142 lb 2.006 oz Microbiology Reports for the Last 24 Hours: Microbiology 08/26/17 08:00 Sputum - Expectorated Sputum Gram Stain - Final - Constitutional no acute distress - *Routine HEENT Exam Head: Present: normocephalic Eye: Present: EOMI, PERRL ENT: Present: mucous membranes dry - *Routine Neck Exam Present: supple - *Routine Respiratory Exam Present: decreased breath sounds, rhonchi - *Routine Cardiovascular Exam Present: RRR, murmur. Absent: rubs - *Routine Abdominal Exam Present: soft - *Routine Extremities Exam Absent: calf tenderness - *Routine Skin Exam Present: intact - *Routine Neurological Exam Present: alert, oriented X3, CN II-XII intact - Routine Psychiatric Exam Present: normal affect
--- NOTE | 2017-08-27 08:53 | XR_ITS ---
XR chest 2V COMPARISON: PA and lateral chest 08/25/2017 HISTORY: Follow-up pneumonia TECHNIQUE: PA and lateral chest FINDINGS: There is been little or no change in the diffuse ill-defined pneumonic infiltrate right upper lobe and in the right lower lobe. There is been partial clearing of the course appearing pneumonic infiltrate left lower lobe. A small amount reactive pleural effusion fluid remains at the left costophrenic angle. The left upper lung field is clear. IMPRESSION: Persistent bilateral pneumonic infiltrates, possible slight improvement in the left lower lobe infiltrate
[2017-08-27 09:16] LABS: Adenovirus,PCR Not Detected (NotDetected); Bordetella Pertussis Not Detected (NotDetected); Chlamydophila Pneumoniae, PCR Not Detected (NotDetected); Coronavirus 229E Not Detected (NotDetected); Coronavirus NL63 Not Detected (NotDetected); Coronavirus OC43 Not Detected (NotDetected); Coronovirus HKU1,PCR Not Detected (NotDetected); Human Metapneumovirus Not Detected (NotDetected); Influenza A, PCR Not Detected (NotDetected); Influenza AH1, 2009 Not Detected (NotDetected); Influenza AH1, PCR Not Detected (NotDetected); Influenza AH3,PCR Not Detected (NotDetected); Influenza B, PCR Not Detected (NotDetected); Mycoplasma Pneumoniae, PCR Not Detected (NotDected); Parainfluenza 1, PCR Not Detected (NotDetected); Parainfluenza 2, PCR Not Detected (NotDetected); Parainfluenza 3, PCR Not Detected (NotDetected); Parainfluenza 4, PCR Not Detected (NotDetected); Respiratory Syncytial Virus Not Detected (NotDetected); Rhinovirus/Enterovirus Not Detected (NotDetected)
[2017-08-27 10:11] LABS: Lymphocytes % 22 % (10-50); Monocytes % 6 % (2-9); Neutrophils % 72 % (42-76); Platelet Estimate Slight Increase; RBC Morphology Normal; Total Cells Counted 100
--- NOTE | 2017-08-27 15:18 | PC.NURSE ---
PATIENT HAS BEEN SITTING IN THE CHAIR MOST OF SHIFT. HE STATES THAT HE IS FEELING BETTER THAN THIS AM. HE DENIES PAIN AND SOA. LUNGS ARE CTA BUT SLIGHTLY DIMINISHED T/O. A&OX3. PATIENT HAS BEEN WEANED FROM 2.5LNC TO 2LNC. SAT IS 88% ON RA. CALL LIGHT WITHIN REACH WILL CONTINUE TO MONITOR
[2017-08-27 19:13] LABS: POC Glucose,Bedside 334 (70-110)
[2017-08-27 19:13] LABS: POC Glucose,Bedside 245 (70-110)
[2017-08-27 20:58] LABS: POC Glucose,Bedside 396 (70-110)
[2017-08-28] VITALS: BP 93/48; PULSE 80; RESP 18; TEMP 36.6; O2SAT 92
[2017-08-28 03:16] VITALS: O2SAT 91
[2017-08-28 04:00] VITALS: BP 113/70; PULSE 74; RESP 18; TEMP 36.6; O2SAT 92
--- NOTE | 2017-08-28 04:07 | PC.NURSE ---
PT RESTED WELL THIS SHIFT. NO ACUTE CHANGES AT THIS TIME. LUNGS ARE CLEAR AND DIMINISHED TO AUSCULTATE. PT IS ON 1L NC. O2 SAT 91% ON RA. NO C/O OF PAIN. MEDS ADMIN PER JUL, WILL CONT TO MONITOR.
[2017-08-28 06:56] LABS: Basophils % 0.1 % (0.1-2.0); Eosinophils % 0.1 % (0.1-12.0); Hematocrit 39.1 % (42.0-52.0); Hemoglobin 12.1 g/dL (14.1-18.0); Lymphocytes # 1.1 K/mm3 (0.7-4.5); Lymphocytes % 7.2 K/mm3 (10-50); Mean Corpuscular HGB Conc 31.1 g/dL (31.8-35.4); Mean Corpuscular Hemoglobin 32.6 pg (27.0-31.2); Mean Corpuscular Volume 104.7 fl (80-94); Mean Platelet Volume 8.7 fl (7.4-10.4); Monocytes # 0.7 K/mm3 (0.1-1.0); Monocytes % 4.6 % (1.7-9.3); Neutrophils # 13.5 K/mm3 (1.8-7.8); Neutrophils % 88.1 % (37.0-80.0); Red Blood Count 3.73 M/mm3 (4.60-6.20); Red Cell Distribution Width 12.3 % (11.5-17.5); White Blood Count 15.4 K/mm3 (4.8-10.8)
[2017-08-28 07:05] LABS: Platelet Count 692 K/mm3 (142-424)
[2017-08-28 07:07] LABS: MANUAL DIFFERENTIAL MANUAL DIFFERENTIAL (MANUAL DIFF)
[2017-08-28 07:11] LABS: Alanine Aminotransferase 12 U/L (12-78); Albumin/Globulin Ratio 0.4 (1.1-1.8); Alkaline Phosphatase 72 U/L (46-116); Aspartate Amino Transferase 11 U/L (15-37); Bilirubin,Total 0.5 mg/dL (0.2-1.0); Blood Urea Nitrogen 20 mg/dL (7-18); Calcium 9.3 mg/dL (8.5-10.1); Carbon Dioxide 28 mmol/L (21.0-32.0); Chloride 101 mmol/L (98-107); Creatinine Clearance Estimated 92 mL/min (0-300); Creatinine,Serum 0.81 mg/dL (0.70-1.30); Estimated Glomerular Filt Rate 98 ml/min (>60); GFR (African American) 119 ML/MIN (>60); Globulin 5.1 gm/dl (1.3-3.2); Glucose 279 mg/dL (74-106); Sodium 136 mmol/L (136-145); Total Protein,Serum 7.1 gm/dL (6.4-8.2)
[2017-08-28 07:39] VITALS: BP 102/60; PULSE 87; RESP 18; TEMP 36.6; O2SAT 91
--- NOTE | 2017-08-28 07:43 | PC.NURSE ---
REPORT GIVEN TO Freddy CONN RN
--- NOTE | 2017-08-28 08:25 | HMH.DCSUM ---
General - General Admission date: 08/25/17 Discharge date: 08/28/17 HPI HPI: 57 years old male insulin-dependent diabetes with recent diagnosis of influenza who presented to the ED complaining of generalized weakness. He finished his Tamiflu but he was vomiting x10 times since he was diagnosed with decreased urine output. Upon arrival to ER systolic blood pressure was 90/60 mmhg. Hospital Course Hospital Course: pt did well in hospital on abx with resp trreatments and steroids with dec o2 requirements and improved labs - he wishes to go home today as he felt better and declined to stay till am - Objective Vital signs: Temp Pulse Resp BP Pulse Ox 97.8 F 87 18 102/60 91 L 08/28/17 07:39 08/28/17 07:39 08/28/17 07:39 08/28/17 07:39 08/28/17 07:39 no acute distress, average body habitus - *Routine HEENT Exam Head: Present: normocephalic Eye: Present: EOMI, PERRL ENT: Present: mucous membranes dry - *Routine Neck Exam Absent: JVD - *Routine Respiratory Exam Present: rhonchi. Absent: respiratory distress - *Routine Cardiovascular Exam Present: RRR, murmur, S4 - *Routine Abdominal Exam Present: soft - *Routine Extremities Exam Absent: calf tenderness - *Routine Skin Exam Present: intact - *Routine Neurological Exam Present: alert, oriented X3, CN II-XII intact - Routine Psychiatric Exam Present: normal affect Results Labs on day of discharge: Labs from last 24 hours 08/28/17 08/28/17 08/27/17 06:35 06:35 20:35 WBC 15.4 H RBC 3.73 L Hgb 12.1 L Hct 39.1 L MCV 104.7 H MCH 32.6 H MCHC 31.1 L RDW 12.3 Plt Count 692 H D MPV 8.7 Neut % (Auto) 88.1 H Lymph % (Auto) 7.2 L [place] % (Auto) 4.6 Eos % (Auto) 0.1 Baso % (Auto) 0.1 Neut # (Auto) 13.5 H Lymph # (Auto) 1.1 [place] # (Auto) 0.7 Eos # (Auto) 0.0 Baso # (Auto) 0.0 Total Counted Neutrophils % (Manual) Lymphocytes % (Manual) Monocytes % (Manual) Platelet Estimate RBC Morphology Sodium 136 Potassium 5.0 D Chloride 101 Carbon Dioxide 28 Anion Gap 12.0 BUN 20 H Creatinine 0.81 Estimated Creat Clear 92 Estimated GFR 98 Est GFR ( Amer) 119 Glucose 279 H POC Glucose 396 H* Calcium 9.3 Total Bilirubin 0.5 AST 11 L ALT 12 D Alkaline Phosphatase 72 Total Protein 7.1 Albumin 2.0 L D Globulin 5.1 H Albumin/Globulin Ratio 0.4 L Chlamy pneumoniae PCR Adenovirus (PCR) B.parapertussis DNA PCR Coronavirus OC43 (PCR) Coronavirus HKU1 (PCR) Coronavirus 229E (PCR) Coronavirus NL63 (PCR) Human Metapneumovir PCR Influenza A (H1) PCR Influ A (H1N1/09) PCR Influenza A (H3) PCR Influenza Type A (PCR) Influenza Type B (PCR) M. pneumoniae (PCR) Parainfluenza 1 (PCR) Parainfluenza 2 (PCR) Parainfluenza 3 (PCR) Parainfluenza 4 (PCR) RSV (PCR) Entero/Rhino (PCR) 08/27/17 08/27/17 08/27/17 16:39 11:43 09:05 WBC RBC Hgb Hct MCV MCH MCHC RDW Plt Count MPV Neut % (Auto) Lymph % (Auto) [place] % (Auto) Eos % (Auto) Baso % (Auto) Neut # (Auto) Lymph # (Auto) [place] # (Auto) Eos # (Auto) Baso # (Auto) Total Counted Neutrophils % (Manual) Lymphocytes % (Manual) Monocytes % (Manual) Platelet Estimate RBC Morphology Sodium Potassium Chloride Carbon Dioxide Anion Gap BUN Creatinine Estimated Creat Clear Estimated GFR Est GFR ( Amer) Glucose POC Glucose 334 H* 245 H Calcium Total Bilirubin AST ALT Alkaline Phosphatase Total Protein Albumin Globulin Albumin/Globulin Ratio Chlamy pneumoniae PCR Not detected Adenovirus (PCR) Not detected B.parapertussis DNA PCR Not detected Coronavirus OC43 (PCR) Not detected Coronavirus HKU1 (PCR)
--- NOTE | 2017-08-28 08:28 | P.DS_ITS ---
General - General Admission date: 08/25/17 Discharge date: 08/28/17 HPI HPI: 57 years old male insulin-dependent diabetes with recent diagnosis of influenza who presented to the ED complaining of generalized weakness. He finished his Tamiflu but he was vomiting x10 times since he was diagnosed with decreased urine output. Upon arrival to ER systolic blood pressure was 90/60 mmhg. Hospital Course Hospital Course: pt did well in hospital on abx with resp trreatments and steroids with dec o2 requirements and improved labs - he wishes to go home today as he felt better and declined to stay till am - Objective Vital signs: Temp Pulse Resp BP Pulse Ox 97.8 F 87 18 102/60 91 L 08/28/17 07:39 08/28/17 07:39 08/28/17 07:39 08/28/17 07:39 08/28/17 07:39 no acute distress, average body habitus - *Routine HEENT Exam Head: Present: normocephalic Eye: Present: EOMI, PERRL ENT: Present: mucous membranes dry - *Routine Neck Exam Absent: JVD - *Routine Respiratory Exam Present: rhonchi. Absent: respiratory distress - *Routine Cardiovascular Exam Present: RRR, murmur, S4 - *Routine Abdominal Exam Present: soft - *Routine Extremities Exam Absent: calf tenderness - *Routine Skin Exam Present: intact - *Routine Neurological Exam Present: alert, oriented X3, CN II-XII intact - Routine Psychiatric Exam Present: normal affect Results Labs on day of discharge: Labs from last 24 hours 08/28/17 08/28/17 08/27/17 06:35 06:35 20:35 WBC 15.4 H RBC 3.73 L Hgb 12.1 L Hct 39.1 L MCV 104.7 H MCH 32.6 H MCHC 31.1 L RDW 12.3 Plt Count 692 H D MPV 8.7 Neut % (Auto) 88.1 H Lymph % (Auto) 7.2 L [place] % (Auto) 4.6 Eos % (Auto) 0.1 Baso % (Auto) 0.1 Neut # (Auto) 13.5 H Lymph # (Auto) 1.1 [place] # (Auto) 0.7 Eos # (Auto) 0.0 Baso # (Auto) 0.0 Total Counted Neutrophils % (Manual) Lymphocytes % (Manual) Monocytes % (Manual) Platelet Estimate RBC Morphology Sodium 136 Potassium 5.0 D Chloride 101 Carbon Dioxide 28 Anion Gap 12.0 BUN 20 H Creatinine 0.81 Estimated Creat Clear 92 Estimated GFR 98 Est GFR ( Amer) 119 Glucose 279 H POC Glucose 396 H* Calcium 9.3 Total Bilirubin 0.5 AST 11 L ALT 12 D Alkaline Phosphatase 72 Total Protein 7.1 Albumin 2.0 L D Globulin 5.1 H Albumin/Globulin Ratio 0.4 L Chlamy pneumoniae PCR Adenovirus (PCR) B.parapertussis DNA PCR Coronavirus OC43 (PCR) Coronavirus HKU1 (PCR) Coronavirus 229E (PCR) Coronavirus NL63 (PCR) Human Metapneumovir PCR Influenza A (H1) PCR Influ A (H1N1/09) PCR Influenza A (H3) PCR Influenza Type A (PCR) Influenza Type B (PCR) M. pneumoniae (PCR) Parainfluenza 1 (PCR) Parainfluenza 2 (PCR) Parainfluenza 3 (PCR) Parainf
--- NOTE | 2017-08-28 09:10 | PC.NURSE ---
CONTACTED [facility] FOR PATIENT TO HAVE HOME O2. DR THAO WROTE PAPER RX. [facility] STATES THEY WILL BRING EVERYTHING TO THE HOSPITAL THIS AM. PATIENT DC JUST WAITING ON HOME O2.
--- NOTE | 2017-08-28 09:34 | PC.NURSE ---
[facility] DELIVERING O2 TO PATIENT AT THIS TIME. REP AT BEDSIDE
[2017-08-28 10:25] LABS: Lymphocytes % 6 % (10-50); Monocytes % 2 % (2-9); Neutrophils % 91 % (42-76); Platelet Estimate Moderate Increase; RBC Morphology Normal; Total Cells Counted 100
[2017-08-28 11:15] LABS: POC Glucose,Bedside 274 (70-110)
== END 2017-08-28 09:46 | disposition home or self-care (01) | DRG 195 ==
LOC: ER 19:31 → 2ND 19:36
PROVIDERS: Nurse Practitioner Family; Admitting Provider Family Medicine; Emergency Provider Emergency Medicine; PCP Emergency Medicine; Visit Provider Emergency Medicine
DX: J18.9 Pneumonia, unspecified organism (principal); E86.0 Dehydration; E10.9 Type 1 diabetes mellitus without complications; F17.210 Nicotine dependence, cigarettes, uncomplicated; Z79.82 Long term (current) use of aspirin; Z79.4 Long term (current) use of insulin; Z79.899 Other long term (current) drug therapy; Z88.0 Allergy status to penicillin; Z82.49 Family history of ischemic heart disease and other diseases of the circulatory system; Z83.3 Family history of diabetes mellitus; Z86.19 Personal history of other infectious and parasitic diseases
CPT/HCPCS: 36415; 71046; 74019; 80053; 82009; 82803; 82962; 83605; 83690; 83735; 84100; 84484; 85007; 85025; 87040; 87070; 87077; 87186; 87205; 87486; 87522; 87581; 87633; 87798; 94640; 94761; 96365; 96375; 99284; 99406; J0692; J1956; J2405

== ENCOUNTER → 2017-08-31 12:35 | Outpatient (CLI) | payer OTHER, SELFPAY ==
[2017-08-31 14:03] LABS: Alanine Aminotransferase 11 U/L (12-78); Albumin/Globulin Ratio 0.5 (1.1-1.8); Alkaline Phosphatase 66 U/L (46-116); Anion Gap 10.9 mEq/L (5-15); Aspartate Amino Transferase 13 U/L (15-37); Bilirubin,Total 0.7 mg/dL (0.2-1.0); Blood Urea Nitrogen 17 mg/dL (7-18); Calcium 8.8 mg/dL (8.5-10.1); Carbon Dioxide 32 mmol/L (21.0-32.0); Chloride 102 mmol/L (98-107); Creatinine,Serum 0.76 mg/dL (0.70-1.30); Estimated Glomerular Filt Rate 106 ml/min (>60); GFR (African American) 128 ML/MIN (>60); Globulin 3.8 gm/dl (1.3-3.2); Glucose 211 mg/dL (74-106); Potassium 4.9 mmoL/L (3.5-5.1); Sodium 140 mmol/L (136-145); Total Protein,Serum 5.8 gm/dL (6.4-8.2)
[2017-08-31 14:42] LABS: Basophils % 0.1 % (0.1-2.0); Eosinophils # 0.1 K/mm3 (0.0-0.4); Eosinophils % 0.6 % (0.1-12.0); Hematocrit 35.1 % (42.0-52.0); Hemoglobin 10.8 g/dL (14.1-18.0); Lymphocytes % 14.2 K/mm3 (10-50); Mean Corpuscular HGB Conc 30.7 g/dL (31.8-35.4); Mean Corpuscular Hemoglobin 32.9 pg (27.0-31.2); Mean Corpuscular Volume 107.4 fl (80-94); Mean Platelet Volume 8.4 fl (7.4-10.4); Monocytes # 0.6 K/mm3 (0.1-1.0); Monocytes % 4.4 % (1.7-9.3); Neutrophils # 11.2 K/mm3 (1.8-7.8); Neutrophils % 80.7 % (37.0-80.0); Platelet Count 952 K/mm3 (142-424); Red Blood Count 3.26 M/mm3 (4.60-6.20); Red Cell Distribution Width 12.5 % (11.5-17.5); White Blood Count 13.9 K/mm3 (4.8-10.8)
== END ==
PROVIDERS: Visit Provider Nurse Practitioner Family
DX: Z79.899 Other long term (current) drug therapy (principal); B18.2 Chronic viral hepatitis C
CPT/HCPCS: 36415; 80053; 85025; 87522

== ENCOUNTER → 2017-09-29 12:43 | Outpatient (CLI) | payer OTHER, SELFPAY ==
[2017-09-29 12:58] LABS: Basophils # 0.1 K/mm3 (0-0.2); Basophils % 0.7 % (0.1-2.0); Eosinophils # 0.1 K/mm3 (0.0-0.4); Eosinophils % 1.9 % (0.1-12.0); Hematocrit 39.1 % (42.0-52.0); Hemoglobin 12.7 g/dL (14.1-18.0); Lymphocytes # 2.2 K/mm3 (0.7-4.5); Lymphocytes % 35.4 K/mm3 (10-50); Mean Corpuscular HGB Conc 32.4 g/dL (31.8-35.4); Mean Corpuscular Hemoglobin 33.7 pg (27.0-31.2); Mean Platelet Volume 7.4 fl (7.4-10.4); Monocytes # 0.6 K/mm3 (0.1-1.0); Monocytes % 8.9 % (1.7-9.3); Neutrophils # 3.4 K/mm3 (1.8-7.8); Neutrophils % 53.1 % (37.0-80.0); Platelet Count 417 K/mm3 (142-424); Red Blood Count 3.76 M/mm3 (4.60-6.20); Red Cell Distribution Width 13.6 % (11.5-17.5); White Blood Count 6.4 K/mm3 (4.8-10.8)
[2017-09-29 17:26] LABS: Alanine Aminotransferase 17 U/L (12-78); Albumin Level 3.6 gm/dL (3.4-5.0); Albumin/Globulin Ratio 0.9 (1.1-1.8); Alkaline Phosphatase 82 U/L (46-116); Anion Gap 15.9 mEq/L (5-15); Aspartate Amino Transferase 14 U/L (15-37); Blood Urea Nitrogen 20 mg/dL (7-18); Calcium 9.8 mg/dL (8.5-10.1); Carbon Dioxide 25 mmol/L (21.0-32.0); Chloride 99 mmol/L (98-107); Creatinine,Serum 0.94 mg/dL (0.70-1.30); Estimated Glomerular Filt Rate 83 ml/min (>60); GFR (African American) 100 ML/MIN (>60); Globulin 4.1 gm/dl (1.3-3.2); Glucose 236 mg/dL (74-106); Potassium 4.9 mmoL/L (3.5-5.1); Sodium 135 mmol/L (136-145); Total Protein,Serum 7.7 gm/dL (6.4-8.2)
== END ==
PROVIDERS: Visit Provider Nurse Practitioner Family
DX: Z79.899 Other long term (current) drug therapy (principal); B18.2 Chronic viral hepatitis C
CPT/HCPCS: 36415; 80053; 85025

== ENCOUNTER → 2017-10-28 11:07 | Outpatient (CLI) | payer OTHER, SELFPAY ==
[2017-10-28 11:32] LABS: Basophils # 0.2 K/mm3 (0-0.2); Basophils % 4.1 % (0.1-2.0); Eosinophils # 0.2 K/mm3 (0.0-0.4); Eosinophils % 3.2 % (0.1-12.0); Hematocrit 33.8 % (42.0-52.0); Hemoglobin 12.4 g/dL (14.1-18.0); Lymphocytes % 34.7 K/mm3 (10-50); Mean Corpuscular HGB Conc 36.8 g/dL (31.8-35.4); Mean Corpuscular Hemoglobin 31.2 pg (27.0-31.2); Mean Corpuscular Volume 84.9 fl (80-94); Mean Platelet Volume 24.5 fl (7.4-10.4); Monocytes # 0.4 K/mm3 (0.1-1.0); Monocytes % 7.6 % (1.7-9.3); Neutrophils # 2.9 K/mm3 (1.8-7.8); Neutrophils % 50.4 % (37.0-80.0); Platelet Count 205 K/mm3 (142-424); Red Blood Count 3.98 M/mm3 (4.60-6.20); Red Cell Distribution Width 23.3 % (11.5-17.5); White Blood Count 5.8 K/mm3 (4.8-10.8)
[2017-10-28 11:47] LABS: Hemoglobin A1C 9.4 % (0.0-7.0)
[2017-10-28 11:56] VITALS: PULSE 78; PULSE 79
[2017-10-28 12:44] LABS: Alanine Aminotransferase 17 U/L (12-78); Albumin Level 3.7 gm/dL (3.4-5.0); Alkaline Phosphatase 90 U/L (46-116); Anion Gap 14.4 mEq/L (5-15); Aspartate Amino Transferase 14 U/L (15-37); Bilirubin,Total 0.6 mg/dL (0.2-1.0); Blood Urea Nitrogen 18 mg/dL (7-18); Calcium 9.3 mg/dL (8.5-10.1); Carbon Dioxide 29 mmol/L (21.0-32.0); Chloride 96 mmol/L (98-107); Chol/HDL Ratio 3.2 (1-3.5); Cholesterol 175 mg/dL (140-200); Creatinine,Serum 1.03 mg/dL (0.70-1.30); Estimated Glomerular Filt Rate 74 ml/min (>60); GFR (African American) 90 ML/MIN (>60); Globulin 3.7 gm/dl (1.3-3.2); HDL Cholesterol 54 mg/dL (27-67); LDL Cholesterol 78 mg/dL (0-130); Potassium 5.4 mmoL/L (3.5-5.1); Sodium 134 mmol/L (136-145); T4 (Thyroxine) 8.4 ug/dl (4.7-13.3); Thyroid Stimulating Hormone 0.97 uIU/ml (0.358-3.740); Total Protein,Serum 7.4 gm/dL (6.4-8.2); Triglycerides 213 mg/dL (30-200); VLDL Cholesterol 43 mg/dL (0-40)
[2017-10-28 12:50] LABS: Glucose 487 mg/dL (74-106)
[2017-10-28 19:48] LABS: Amphetamine/Metha Screen,Urine Negative ng/mL (<1000); Barbiturates Screen,Urine Negative ng/mL (<200); Benzodiazepines Screen,Urine Negative ng/mL (200); Cannabinoid Screen,Urine Negative ng/mL (<50); Cocaine Screen,Urine Negative ng/g (<300); Methadone Screen,Urine Negative ng/mL (<300); Opiate Screen,Urine Negative ng/mL (<300); Phencyclidine Screen,Urine Negative ng/mL (<25)
[2017-10-29 20:27] LABS: Vitamin D 25 Hydroxy 25.1 ng/mL (30.0-100.0)
== END ==
PROVIDERS: Nurse Practitioner Family; PCP Emergency Medicine; Visit Provider Nurse Practitioner Family
DX: B18.2 Chronic viral hepatitis C (principal); Z79.899 Other long term (current) drug therapy
CPT/HCPCS: 36415; 80053; 80061; 80305; 82652; 83036; 84436; 84443; 85025; 87522; 94060; 94640

== ENCOUNTER → 2017-11-15 11:51 | Outpatient (CLI) | payer OTHER, SELFPAY ==
--- NOTE | 2017-11-15 11:54 | NVE_ITS ---
Venous Exam Indications: 729.5 Pain in limb. Palpable, visible knot on lateral aspect of the left knee. IMPRESSIONS 1. There is no evidence of significant Reflux. 2. No evidence of deep or superficial vein thrombosis involving the left lower extremity Left lower extremity venous duplex evaluation. Doppler flow study including spectral analysis, color and briones scale imaging. Location: Vascular laboratory. Patient status: Outpatient. CRITICAL FINDINGS - Reported to: Leandra - Read back and verified. - 11/15/17 - 1245 - Heterogeneous [id number] mass along the lateral calf , needs clinical correlation Incidental findings: Apalpable knotis noted on the lateral aspect of left calf. Appears to have the "ring of fire" appearance. Appears to be vacular fed. Tables: Venous flow and imaging: + +-------+ + Location Overall Flow properties + +-------+ + Left common femoral Patent Normal phasicity; spontaneous; normal augmentation; compressible + +-------+ + Left saphenofemoral junction Patent Compressible + +-------+ + Left profunda femoral Patent Compressible + +-------+ + Left femoral Patent Normal phasicity; spontaneous; normal augmentation; compressible + +-------+ + Left greater saphenous Patent Normal phasicity; spontaneous; normal augmentation; compressible + +-------+ + Left popliteal Patent Normal phasicity; spontaneous; normal augmentation; compressible + +-------+ + Left posterior tibial Patent Compressible + +-------+ + Left peroneal Patent Compressible + +-------+ + Left gastrocnemius Patent Compressible + +-------+ + Left soleal Patent Compressible + +-------+ + (Report amended ) Electronically signed by: Dominik Phillips [id number]
[2017-11-15 12:43] LABS: Basophils # 0.1 K/mm3 (0-0.2); Basophils % 0.7 % (0.1-2.0); Eosinophils # 0.2 K/mm3 (0.0-0.4); Eosinophils % 2.6 % (0.1-12.0); Hematocrit 38.6 % (42.0-52.0); Lymphocytes # 2.4 K/mm3 (0.7-4.5); Lymphocytes % 38.3 K/mm3 (10-50); Mean Corpuscular Hemoglobin 32.2 pg (27.0-31.2); Mean Platelet Volume 7.7 fl (7.4-10.4); Monocytes # 0.4 K/mm3 (0.1-1.0); Monocytes % 6.7 % (1.7-9.3); Neutrophils # 3.3 K/mm3 (1.8-7.8); Neutrophils % 51.6 % (37.0-80.0); Platelet Count 318 K/mm3 (142-424); Red Blood Count 3.71 M/mm3 (4.60-6.20); Red Cell Distribution Width 13.8 % (11.5-17.5); White Blood Count 6.3 K/mm3 (4.8-10.8)
[2017-11-15 13:42] LABS: Alanine Aminotransferase 18 U/L (12-78); Albumin Level 3.5 gm/dL (3.4-5.0); Alkaline Phosphatase 72 U/L (46-116); Anion Gap 12.4 mEq/L (5-15); Aspartate Amino Transferase 18 U/L (15-37); Bilirubin,Total 0.7 mg/dL (0.2-1.0); Blood Urea Nitrogen 18 mg/dL (7-18); Calcium 9.1 mg/dL (8.5-10.1); Carbon Dioxide 29 mmol/L (21.0-32.0); Chloride 102 mmol/L (98-107); Estimated Glomerular Filt Rate 77 ml/min (>60); GFR (African American) 93 ML/MIN (>60); Globulin 3.6 gm/dl (1.3-3.2); Potassium 4.4 mmoL/L (3.5-5.1); Sodium 139 mmol/L (136-145); Total Protein,Serum 7.1 gm/dL (6.4-8.2)
[2017-11-15 14:14] LABS: Glucose 42 mg/dL (74-106)
== END ==
PROVIDERS: PCP Nurse Practitioner Family; Visit Provider Nurse Practitioner Family
DX: E11.9 Type 2 diabetes mellitus without complications (principal); R09.89 Other specified symptoms and signs involving the circulatory and respiratory systems; R22.42 Localized swelling, mass and lump, left lower limb
CPT/HCPCS: 36415; 80053; 85025; 93971

== ENCOUNTER → 2017-12-01 14:23 | Outpatient (CLI) | payer OTHER, SELFPAY ==
--- NOTE | 2017-12-01 14:24 | CT_ITS ---
CT lower leg LT wo/w con INDICATION: ITS.REASON: Left lower leg mass ORDERING PHYSICIAN: David Fung MD PATIENT AGE: 57 years COMPARISON: 11/15/2017 TECHNIQUE: Axial images are obtained without and with contrast. Sagittal and coronal reformatted images are reviewed as well. All CT scans at the facility use one or more dose reduction, viz: automated exposure control; ma/kV adjustment per patient size (including targeted exams where dose is matched to indication; i.e. head); or iterative reconstruction technique. FINDINGS: Recent vascular ultrasound demonstrated a hypoechoic lesion in the left lateral aspect of the calf. Axial images are obtained without and with contrast of the left lower extremity. The unenhanced images show a small area of calcification within the mid to upper aspect of the fibularis longus muscle. Cannot appreciate a definite mass by this CT. There is some minimal enhancement on the post enhanced images at this region. The area of minimal enhancement which measure approximately 12 mm. No adjacent bony destructive process evident. No air-fluid levels or soft tissue gas or fluid collection. IMPRESSION: Faint calcifications noted within the fibularis longus muscle in the mid to superior aspect with some minimal enhancement corresponding to the palpable abnormality. Cannot adequately measure this to determine the dimension. MRI without and with contrast suggested for more thorough evaluation. There is only some minimal enhancement. No large feeding vessels are evident..
[2017-12-01 15:28] LABS: Blood Urea Nitrogen 24 mg/dL (7-18); Creatinine,Serum 1.01 mg/dL (0.70-1.30); Estimated Glomerular Filt Rate 76 ml/min (>60); GFR (African American) 92 ML/MIN (>60)
== END ==
PROVIDERS: PCP Nurse Practitioner Family; Visit Provider Surgery
DX: R22.42 Localized swelling, mass and lump, left lower limb (principal)
CPT/HCPCS: 36415; 73702; 82565; 84520; Q9967

== ENCOUNTER → 2018-01-30 08:04 | Outpatient (CLI) | payer OTHER, SELFPAY ==
--- NOTE | 2018-01-30 08:07 | MR_ITS ---
MR lower leg LT wo/w con HISTORY: Pain and tenderness with palpable nodule left lower extremity. ITS.REASON: mass lower LT leg / recommended by Dr Phillips ORDERING PHYSICIAN: Chetan Veloz MD PATIENT AGE: 57 years Comparison: 12/01/2017 TECHNIQUE: Standard multiplanar multiecho sequences are performed without and with contrast. Nothing palpable on today's exam according to the technologist, therefore, no area was marked. FINDINGS: Previous CT scan showed a small area of enhancement in the left fibularis longus muscle with a small calcification. Apparently the area that was previously palpable is no longer palpable. There is an area of slight increased T2 signal involving the lateral aspect of the gastrocnemius at the junction of the proximal to mid calf laterally. This does not enhance and may be related to some mild inflammation. No other significant anomalies are evident. No soft tissue masses are evident. IMPRESSION: 1. No obvious soft tissue mass. 2. Slight increased T2 signal of the lateral aspect of the gastrocnemius consistent with an area of inflammation/edema otherwise negative
[2018-01-30 08:36] LABS: Blood Urea Nitrogen 18 mg/dL (7-18); Creatinine,Serum 1.11 mg/dL (0.70-1.30); Estimated Glomerular Filt Rate 68 ml/min (>60); GFR (African American) 83 ML/MIN (>60)
--- NOTE | 2018-01-30 09:37 | HMH.ITSHM ---
ASPIRIN INSULIN CARVEDILOL CLOPIDOGREL BISULFATE GABAPENTIN HUMALOG LISINOPRIL METFORMIN RANITIDINE PANTOPRAZOLE
== END ==
PROVIDERS: PCP Nurse Practitioner Family; Visit Provider Orthopaedic Surgery
DX: M79.606 Pain in leg, unspecified (principal); R22.42 Localized swelling, mass and lump, left lower limb
CPT/HCPCS: 36415; 73720; 82565; 84520; A9576

== ENCOUNTER → 2018-08-17 06:41 | Outpatient (CLI) | payer OTHER, SELFPAY ==
--- NOTE | 2018-08-17 06:44 | CA_ITS ---
PROCEDURE: 2-D M-mode and color Doppler study INDICATIONS FOR THE TEST: Chest pain COPD Heart Murmur Tobacco Smoking+ Palpitations Fatigue Syncope Edema+ Hypertension+Diabetes Mellitus+ Rheumatic Fever SOB+[place] Obesity Hyperlipidemia+ Family History HD Additional History HX of [place] 2016, stents, CAD, Hepatitis, ethol abuse PATIENT INFORMATION HEIGHT: 71 WEIGHT: 141 GENDER: Male B/P: 105/78 2-D/M-MODE INTERPRETATION: 2-D MEASUREMENTS OBSERVED VALUES IN CMS Right Ventricular Dimension (RVDd) 2.4 Interventricular Septum (Thickness)(IVsd) 0.7 Left Ventricular Internal Dimensions(LVIDd) 5.6 Left Ventricular Posterior Wall (Thickness)(LVPWd) 0.8 Aortic Root 2.7 Aortic Cusp Separation 2.0 Left Atrial Dimensions (LAD) 3.0 2D 1. Left atrium is mildly enlarged, left ventricle is normal size, there is mild qualitative concentric left ventricular hypertrophy, visually estimated ejection fraction of 50% with no regional wall motion abnormality. 2. The right atrium and right ventricle are mildly enlarged with normal contractility. 3. The aortic valve is minimally thickened and fibrosed. 4. The mitral and tricuspid valve leaflets are minimally thickened. 5. The pulmonic valve is poorly visualized. 6. No significant pericardial effusion noted DOPPLER INTERROGATION: Doppler interrogation of the aortic, mitral and tricuspid valvular presence of trace aortic, mild mitral and tricuspid regurgitation, calculated right ventricular systolic pressure 33 mmHg, grade 1 diastolic dysfunction seen without tissue Doppler evidence of raised left atrial pressure. Inferior vena cava is normal size with normal study collapse. CONCLUSION: 1. Mildly enlarged left atrium, normal left ventricular size, mild concentric left ventricular hypertrophy, visually estimated ejection fraction of 50% with no regional wall motion abnormality, grade 1 diastolic dysfunction seen without tissue Doppler evidence of raised left atrial pressure. 2. Mildly enlarged right atrium and right ventricle, contractility of the right ventricle is normal. 3. Mild mitral and tricuspid regurgitation, calculated right ventricular systolic pressure is 33 mmHg, inferior vena cava is normal size with normal inspiratory collapse. 4. No significant pericardial effusion noted
--- NOTE | 2018-08-17 06:45 | NM_ITS ---
CARDIOLITE SPECT MYOCARDIAL PERFUSION LEXISCAN, REST AND STRESS: History: Coronary artery disease, history of [place], hypertension, diabetes, hyperlipidemia, tobacco use, family history and shortness of breath Procedure: Patient received a 0.4 mg of intravenous Lexiscan, resting heart rate was 81 bpm resting blood pressure 131/77, with Lexiscan maximum heart rate achieved was 92 bpm, which is less than 85% of the maximum predicted heart rate and a blood pressure was 118/63. With Lexiscan patient complained of shortness of breath Electrocardiogram: Resting electrocardiogram showed sinus rhythm rightward axis, with Lexiscan there is less than 1.[address] segment depression from the baseline EKG. The EKG portion of the Lexiscan Myoview is nondiagnostic. Cardiac stress and resting SPECT images: Cardiac stress and resting SPECT images were obtained using technetium 99 Myoview 31.8 mCi stress and 10.2 mCi at rest. Gated SPECT further analysis of segmental wall motion and calculation of the ejection fraction also done. Cardiac stress and the suspect show reversible ischemia involving the anteroapical apex and inferior wall, either derived ejection fraction 50% with no regional wall motion abnormality, right ventricle is normal size and contractility. Conclusion: 1. The EKG portion of the Lexiscan Myoview is nondiagnostic. 2. Scintigraphic evidence of mild reversible ischemia involving the anteroapical, apex and inferior wall suggestive of multivessel coronary artery disease. Computer derived ejection fraction is 51% with no regional wall motion abnormality, right ventricle is normal size and contractility. 3. The abnormal Lexiscan Myoview study.
--- NOTE | 2018-08-17 09:06 | HMH.ITSHM ---
Current Home Medications as stated by this patient Erlin Montalvo or quality assurance representative. []asa carvedilol clopidogrel gabapentin lisinopril metformin pantoprozole simvastatin
== END ==
PROVIDERS: PCP Emergency Medicine; Visit Provider Internal Medicine Cardiovascular Disease
DX: I25.10 Atherosclerotic heart disease of native coronary artery without angina pectoris (principal); E78.2 Mixed hyperlipidemia; I11.9 Hypertensive heart disease without heart failure; I25.2 Old myocardial infarction; F17.200 Nicotine dependence, unspecified, uncomplicated; Z95.5 Presence of coronary angioplasty implant and graft
CPT/HCPCS: 78452; 93017; 93306; A9502; J2785

== ENCOUNTER 2018-08-31 08:00 | Day surgery (SDC) | payer OTHER, SELFPAY ==
[2018-08-31] VITALS (12 sets, daily range): BP systolic 90–138; BP diastolic 62–89; PULSE 57–86; RESP 16; TEMP 36.6; O2SAT 95–99; BMI 20.2
--- NOTE | 2018-08-31 | IR_ITS ---
CARDIAC CATHETERIZATION DATE OF CATHETERIZATION:08/31/2018 11:35 AM PROCEDURES: 1. Left heart catheterization 2. Left ventriculogram 3. Selective coronary angiogram 4. Drug-eluting stent deployment to the mid left anterior descending artery INDICATION FOR TEST: 1. Coronary artery disease 2. Class III angina pectoris 3. Abnormal Myoview in the anterior apical and inferior wall which corresponded to the large wraparound LAD stenosis Informed consent was obtained prior to the procedure. COMPLICATIONS: See below ESTIMATED BLOOD LOSS: Less than 10 ml. TECHNIQUE: One percent lidocaine used to anesthetize the right anterior aspect of the wrist. The right radial artery was accessed via the Seldinger technique. A 6 Maltese sheath was placed in the right radial artery. 2.5 mg of verapamil, 800 mcg of nitroglycerin, 1mg Lidocaine and 5000 U Heparin were given through the arterial sheath. The trap catheter was also used to perform left heart catheterization, left ventriculogram and selective coronary angiogram. At the end of the diagnostic angiogram and [employer] left guide catheter was used intubate the left main artery. Additional heparin was given which produced a therapeutic ACT. A BMW wire was placed distally and a 3.5 x 18 mm resolute stent was deployed at 8 jewel however the balloon ruptured. At this point an additional 3.5 x 15 mm resolute [place] stent was placed in the midportion yet distal to the stent still overlapping and deployed at 16 jweel. The balloon was brought back and deployed at 18 jewel within the 18 mm stent. DOMITILA-3 flow was present before and after the procedure. At the end of the procedure the apparatus was removed the sheath was removed good hemostasis was achieved using TR banding patient was transferred to the postop holding area in stable condition ANGIOGRAPHIC RESULTS: 1. The left main artery normal 2. The left anterior descending artery is proximally normal however has a focal concentric 70% stenosis immediately distal to a diagonal artery and within the stent. The remaining LAD is a large vessel which wraps the apex and supplies a portion of the inferior wall 3. The circumflex artery is a dominant vessel and has proximal 10-20% stenosis. The large first obtuse marginal artery has proximal 40% stenosis 4. The right coronary artery is a nondominant yet still large vessel which has mid vessel 30-40% concentric stenosis 5. The ROBERTSON ventriculogram reveals normal 65% 6. The left ventricular end-diastolic pressure 10 mmHg IMPRESSION: 1. In-stent restenosis within the mid LAD which corresponded perfectly to the abnormal Myoview. An intraluminal defect must have been present within the previous mid LAD stent which caused the 18 mm stent balloon to rupture and only 8 jewel of pressure. This suggests a severe intraluminal stenosis. 2. Successful stenting of the proximal to mid LAD severe disease reduced to 0% with 2 drug-eluting stents in a contiguous manner 3. Moderate disease in the first obtuse marginal artery with mild to moderate disease in the right coronary artery 4. Normal ejection fraction 5. Normal left ventricular end-diastolic pressure PLAN: 1. Aspirin Plavix 2. LDL less than 55 3. Cardiac rehabilitation 4. Avoidance of tobacco products 5. Risk factor modification
[2018-08-31 08:34] LABS: Basophils % 0.5 % (0.1-2.0); Eosinophils # 0.1 K/mm3 (0.0-0.4); Eosinophils % 1.4 % (0.1-12.0); Hematocrit 38.5 % (42.0-52.0); Hemoglobin 12.4 g/dL (14.1-18.0); Lymphocytes # 2.3 K/mm3 (0.7-4.5); Lymphocytes % 26.5 % (10-50); Mean Corpuscular HGB Conc 32.2 g/dL (31.8-35.4); Mean Corpuscular Hemoglobin 33.3 pg (27.0-31.2); Mean Corpuscular Volume 103.3 fl (80-94); Mean Platelet Volume 7.2 fl (7.4-10.4); Monocytes # 0.5 K/mm3 (0.1-1.0); Neutrophils # 5.7 K/mm3 (1.8-7.8); Neutrophils % 65.6 % (37.0-80.0); Platelet Count 490 K/mm3 (142-424); Red Blood Count 3.72 M/mm3 (4.60-6.20); Red Cell Distribution Width 13.4 % (11.5-17.5); White Blood Count 8.7 K/mm3 (4.8-10.8)
[2018-08-31 08:56] LABS: Anion Gap 13.8 mEq/L (5-15); Blood Urea Nitrogen 19 mg/dL (7-18); Calcium 9.4 mg/dL (8.5-10.1); Carbon Dioxide 30 mmol/L (21.0-32.0); Chloride 96 mmol/L (98-107); Creatinine Clearance Estimated 86 mL/min (50-200); Creatinine,Serum 0.87 mg/dL (0.70-1.30); Estimated Glomerular Filt Rate 90 ml/min (>60); GFR (African American) 109 ML/MIN (>60); Glucose 192 mg/dL (74-106); Potassium 3.8 mmoL/L (3.5-5.1); Sodium 136 mmol/L (136-145)
[2018-08-31 13:47] LABS: CATHL Activated Clotting Time 232 SEC (74-125)
--- NOTE | 2018-08-31 14:39 | HMH.PHACLD ---
Erlin Montalvo has received discharge medication counseling on the following medications: PATIENT ALREADY RECEIVING: ASPIRIN 81 MG CARVEDILOL 6.25 MG CLOPIDOGREL 75 MG LISINOPRIL 2.5 MG SIMVASTATIN 5 MG NO FURTHER MEDICATIONS WERE STARTED BY DR. TRUJILLO AT THIS TIME. PATIENT INDICATED HE WAS ALMOST OUT OF HIS SIMVASTATIN. ADDRESSED THIS WITH THE [facility] [employer] NURSES. THEY WILL FOLLOW UP AND GET SCRIPT CALLED IN TO [facility] IF APPROVED BY DR. TRUJILLO.
== END 2018-08-31 15:47 | disposition home or self-care (01) ==
LOC: CATHLAB 08:01
PROVIDERS: PCP Emergency Medicine; Visit Provider Internal Medicine
DX: I25.118 Atherosclerotic heart disease of native coronary artery with other forms of angina pectoris (principal); R94.39 Abnormal result of other cardiovascular function study; I25.2 Old myocardial infarction; I11.9 Hypertensive heart disease without heart failure; E11.9 Type 2 diabetes mellitus without complications; Z72.0 Tobacco use; Z79.4 Long term (current) use of insulin; Z79.82 Long term (current) use of aspirin; Z79.84 Long term (current) use of oral hypoglycemic drugs; Z79.899 Other long term (current) drug therapy; Z88.0 Allergy status to penicillin; Z82.49 Family history of ischemic heart disease and other diseases of the circulatory system
CPT/HCPCS: 80048; 85025; 85347; 92928; 93458; 99152; 99153; C1725; C1769; C1874; C1876; C9600; J1644; Q9967

== ENCOUNTER → 2018-09-12 12:24 | Outpatient (CLI) | payer OTHER, SELFPAY ==
[2018-09-12 18:41] LABS: Alanine Aminotransferase 51 U/L (12-78); Albumin Level 3.8 gm/dL (3.4-5.0); Alkaline Phosphatase 98 U/L (46-116); Anion Gap 16.6 mEq/L (5-15); Aspartate Amino Transferase 54 U/L (15-37); Bilirubin,Direct 0.2 mg/dL (0.0-0.2); Bilirubin,Indirect 0.6 mg/dL (0.0-0.9); Bilirubin,Total 0.8 mg/dL (0.2-1.0); Blood Urea Nitrogen 22 mg/dL (7-18); Calcium 9.5 mg/dL (8.5-10.1); Carbon Dioxide 24 mmol/L (21.0-32.0); Chloride 93 mmol/L (98-107); Chol/HDL Ratio 2.2 (1-3.5); Cholesterol 163 mg/dL (140-200); Creatinine,Serum 1.04 mg/dL (0.70-1.30); Estimated Glomerular Filt Rate 73 ml/min (>60); GFR (African American) 89 ML/MIN (>60); HDL Cholesterol 73 mg/dL (27-67); LDL Cholesterol 64 mg/dL (0-130); Potassium 5.6 mmoL/L (3.5-5.1); Sodium 128 mmol/L (136-145); Total Protein,Serum 7.6 gm/dL (6.4-8.2); Triglycerides 132 mg/dL (30-200); VLDL Cholesterol 26 mg/dL (0-40)
[2018-09-12 18:53] LABS: Glucose 587 mg/dL (74-106)
== END ==
PROVIDERS: Physician Assistant; Visit Provider Internal Medicine Cardiovascular Disease
DX: E78.5 Hyperlipidemia, unspecified (principal); Z79.899 Other long term (current) drug therapy; I11.9 Hypertensive heart disease without heart failure; I25.10 Atherosclerotic heart disease of native coronary artery without angina pectoris; Z95.5 Presence of coronary angioplasty implant and graft
CPT/HCPCS: 36415; 80048; 80061; 80076

== ENCOUNTER → 2018-10-05 13:25 | Outpatient (CLI) | payer OTHER, SELFPAY ==
[2018-10-05 13:52] LABS: Hemoglobin A1C 12.8 % (0.0-7.0)
[2018-10-05 13:54] LABS: Amphetamine/Metha Screen,Urine Negative ng/mL (<1000); Barbiturates Screen,Urine Negative ng/mL (<200); Benzodiazepines Screen,Urine Negative ng/mL (<200); Cannabinoid Screen,Urine Negative ng/mL (<50); Cocaine Screen,Urine Negative ng/mL (<300); Methadone Screen,Urine Negative ng/mL (<300); Opiate Screen,Urine Negative ng/mL (<300); Phencyclidine Screen,Urine Negative ng/mL (<25)
[2018-10-05 14:06] LABS: Alanine Aminotransferase 68 U/L (12-78); Albumin Level 3.5 gm/dL (3.4-5.0); Albumin/Globulin Ratio 0.9 (1.1-1.8); Alkaline Phosphatase 106 U/L (46-116); Anion Gap 17.3 mEq/L (5-15); Aspartate Amino Transferase 53 U/L (15-37); Bilirubin,Total 0.8 mg/dL (0.2-1.0); Blood Urea Nitrogen 24 mg/dL (7-18); Carbon Dioxide 23 mmol/L (21.0-32.0); Chloride 94 mmol/L (98-107); Chol/HDL Ratio 2.7 (1-3.5); Cholesterol 170 mg/dL (140-200); Creatinine,Serum 1.24 mg/dL (0.70-1.30); Estimated Glomerular Filt Rate 60 ml/min (>60); Free Thyroxine Index 1.4 ug/dL (5.93-13.13); GFR (African American) 72 ML/MIN (>60); HDL Cholesterol 63 mg/dL (27-67); LDL Cholesterol 66 mg/dL (0-130); Phosphorous 3.7 mg/dL (2.4-4.9); Potassium 5.3 mmoL/L (3.5-5.1); Sodium 129 mmol/L (136-145); T4 (Thyroxine) 4.4 ug/dl (4.7-13.3); Thyroid Stimulating Hormone 0.99 uIU/ml (0.358-3.740); Total Protein,Serum 7.5 gm/dL (6.4-8.2); Triglycerides 205 mg/dL (30-200); Triiodothryronine (T3) Uptake 32 % (31-39); VLDL Cholesterol 41 mg/dL (0-40)
[2018-10-05 14:20] LABS: Glucose 567 mg/dL (74-106)
[2018-10-05 14:37] LABS: Basophils % 0.5 % (0.1-2.0); Eosinophils # 0.1 K/mm3 (0.0-0.4); Eosinophils % 0.9 % (0.1-12.0); Hematocrit 38.9 % (42.0-52.0); Hemoglobin 12.1 g/dL (14.1-18.0); Lymphocytes # 1.7 K/mm3 (0.7-4.5); Lymphocytes % 25.2 % (10-50); Mean Corpuscular HGB Conc 31.1 g/dL (31.8-35.4); Mean Corpuscular Hemoglobin 33.4 pg (27.0-31.2); Mean Corpuscular Volume 107.6 fl (80-94); Mean Platelet Volume 8.9 fl (7.4-10.4); Monocytes # 0.4 K/mm3 (0.1-1.0); Neutrophils # 4.5 K/mm3 (1.8-7.8); Neutrophils % 67.4 % (37.0-80.0); Platelet Count 428 K/mm3 (142-424); Red Blood Count 3.61 M/mm3 (4.60-6.20); White Blood Count 6.6 K/mm3 (4.8-10.8)
[2018-10-06 07:02] LABS: PSA, Free 0.12 ng/mL; Prostate Specific Ag 0.6 ng/mL (0.0-4.0)
[2018-10-06 10:42] LABS: Thyroid Peroxidase Antibodies 62 IU/mL (0-34)
[2018-10-06 10:44] LABS: Microalbumin, Urine <3.0 ug/mL (Not Estab.)
[2018-10-07 18:07] LABS: Vitamin D 25 Hydroxy 18.8 ng/mL (30.0-100.0)
== END ==
PROVIDERS: Visit Provider Nurse Practitioner Family
DX: E11.9 Type 2 diabetes mellitus without complications (principal); Z79.4 Long term (current) use of insulin; Z79.84 Long term (current) use of oral hypoglycemic drugs; R20.0 Anesthesia of skin; R20.2 Paresthesia of skin; Z12.5 Encounter for screening for malignant neoplasm of prostate; Z79.899 Other long term (current) drug therapy; D72.829 Elevated white blood cell count, unspecified; R68.89 Other general symptoms and signs; R53.83 Other fatigue
CPT/HCPCS: 80053; 80061; 80069; 80305; 82043; 82652; 83036; 84153; 84154; 84436; 84443; 84479; 85025; 86376

== ENCOUNTER → 2018-12-29 12:03 | Outpatient (CLI) | payer OTHER, SELFPAY ==
--- NOTE | 2018-12-29 12:08 | NM_ITS ---
History:c.p., hyperlipidemia Procedure: Patient received a 0.4 mg of intravenous Lexiscan, resting heart rate 91 bpm, resting blood pressure 122/75, with Lexiscan maximum heart rate achieve was 108 bpm which is less than 85% of the maximum predicted heart rate and blood pressure was 132/81. With Lexiscan patient denied any complaint of chest pain. Electrocardiogram: Resting electrocardiogram showed sinus rhythm, with Lexiscan there is less than 1.5mm ST segment depression noted from the baseline EKG. The EKG portion of the Lexiscan Myoview is nondiagnostic. Cardias Stress and Resting SPECT images: Cardias Stress and Resting SPECT images were obtained using technetium 99m Myoview 31.4 mCi stress and 9.89 mCi at rest. Gated SPECT further analysis of segmental wall motion and calculation of ejection fraction also done. Cardiac stress and resting SPECT show uniform myocardial activity without segmental perfusion abnormality, the computer derived ejection fraction is 52% with no regional wall motion abnormality, right ventricle is normal size and contractility. Conclusion: 1. The EKG portion of the Lexiscan Myoview is nondiagnostic. 2. No scintigraphic evidence of reversible ischemia seen, computer derived ejection fraction is 52% with no regional wall motion abnormality, right ventricle is normal size and contractility. 3. Normal Lexiscan Myoview study.
--- NOTE | 2018-12-29 14:18 | HMH.ITSHM ---
Current Home Medications as stated by this patient Erlin Montalvo or agency service representative. []simvastatin pantoprazol nitro metformin lisinopril gabapentin clopidogrel aspirn carvedilol
== END ==
PROVIDERS: PCP Emergency Medicine; Visit Provider Internal Medicine
DX: E78.5 Hyperlipidemia, unspecified (principal); I11.9 Hypertensive heart disease without heart failure; I20.8 Other forms of angina pectoris; F17.200 Nicotine dependence, unspecified, uncomplicated; Z95.5 Presence of coronary angioplasty implant and graft
CPT/HCPCS: 78452; 93017; A9502; J2785

== ENCOUNTER → 2019-01-03 13:22 | Outpatient (CLI) | payer OTHER, SELFPAY ==
[2019-01-03 14:08] LABS: Basophils % 0.6 % (0.1-2.0); Eosinophils # 0.1 K/mm3 (0.0-0.4); Eosinophils % 1.5 % (0.1-12.0); Hematocrit 41.6 % (42.0-52.0); Hemoglobin 12.9 g/dL (14.1-18.0); Mean Corpuscular Hemoglobin 32.3 pg (27.0-31.2); Mean Corpuscular Volume 104.2 fl (80-94); Mean Platelet Volume 9.1 fl (7.4-10.4); Monocytes # 0.4 K/mm3 (0.1-1.0); Neutrophils # 4.5 K/mm3 (1.8-7.8); Neutrophils % 63.8 % (37.0-80.0); Platelet Count 562 K/mm3 (142-424); Red Blood Count 3.99 M/mm3 (4.60-6.20); Red Cell Distribution Width 14.2 % (11.5-17.5); White Blood Count 7.1 K/mm3 (4.8-10.8)
[2019-01-03 15:34] LABS: Amphetamine/Metha Screen,Urine Negative ng/mL (<1000); Barbiturates Screen,Urine Negative ng/mL (<200); Benzodiazepines Screen,Urine Negative ng/mL (<200); Cannabinoid Screen,Urine Negative ng/mL (<50); Cocaine Screen,Urine Negative ng/mL (<300); Methadone Screen,Urine Negative ng/mL (<300); Opiate Screen,Urine Negative ng/mL (<300); Phencyclidine Screen,Urine Negative ng/mL (<25)
[2019-01-03 15:54] LABS: Alanine Aminotransferase 22 U/L (12-78); Albumin Level 3.6 gm/dL (3.4-5.0); Albumin/Globulin Ratio 0.8 (1.1-1.8); Alkaline Phosphatase 94 U/L (46-116); Anion Gap 15.3 mEq/L (5-15); Aspartate Amino Transferase 14 U/L (15-37); Bilirubin,Total 0.5 mg/dL (0.2-1.0); Blood Urea Nitrogen 21 mg/dL (7-18); Calcium 9.7 mg/dL (8.5-10.1); Carbon Dioxide 28 mmol/L (21.0-32.0); Chloride 99 mmol/L (98-107); Chol/HDL Ratio 2.3 (1-3.5); Cholesterol 167 mg/dL (140-200); Creatinine,Serum 0.85 mg/dL (0.70-1.30); Estimated Glomerular Filt Rate 93 ml/min (>60); Free T4 (Free Thyroxine) 0.99 ng/dl (0.76-1.46); GFR (African American) 112 ML/MIN (>60); Globulin 4.3 gm/dl (1.3-3.2); Glucose 155 mg/dL (74-106); HDL Cholesterol 74 mg/dL (27-67); LDL Cholesterol 78 mg/dL (0-130); Potassium 4.3 mmoL/L (3.5-5.1); Sodium 138 mmol/L (136-145); Thyroid Stimulating Hormone 1.87 uIU/ml (0.358-3.740); Total Protein,Serum 7.9 gm/dL (6.4-8.2); Triglycerides 75 mg/dL (30-200); VLDL Cholesterol 15 mg/dL (0-40)
[2019-01-03 16:48] LABS: Hemoglobin A1C 11.4 % (0.0-7.0)
[2019-01-05 18:05] LABS: Microalbumin, Urine 79.8 ug/mL (Not Estab.); Vitamin D 25 Hydroxy 24.6 ng/mL (30.0-100.0)
== END ==
PROVIDERS: Visit Provider Nurse Practitioner Family
DX: E11.9 Type 2 diabetes mellitus without complications (principal); E78.5 Hyperlipidemia, unspecified; R53.83 Other fatigue; D72.829 Elevated white blood cell count, unspecified; Z79.4 Long term (current) use of insulin; Z79.84 Long term (current) use of oral hypoglycemic drugs
CPT/HCPCS: 80053; 80061; 80305; 82043; 82652; 83036; 84439; 84443; 85025

== ENCOUNTER 2019-03-06 15:59 | Inpatient (IN) ==
[2019-03-06 16:05] LABS: ABG Base Excess -30.7 mmol/L (-2.4-2.3); ABG HCO3 2.8 mmhg (22.0-26.0); ABG Oxygen Saturation 99 % (90-100); ABG PO2 153.7 mmhg (80-100); ABG TCO2 3.3 mmhg (23-27); Allen's Test ACCEPTABLE
[2019-03-06 16:06] LABS: ABG PCO2 15.9 mmhg (35.0-45.0); ABG PH 6.87 mmol/L (7.35-7.45)
[2019-03-06 16:27] LABS: Basophils # 0.1 K/mm3 (0-0.2); Basophils % 0.4 % (0.1-2.0); Eosinophils # 0.1 K/mm3 (0.0-0.4); Eosinophils % 0.3 % (0.1-12.0); Hematocrit 48.2 % (42.0-52.0); Hemoglobin 11.8 g/dL (14.1-18.0); Lymphocytes # 4.5 K/mm3 (0.7-4.5); Lymphocytes % 24.5 % (10-50); Mean Corpuscular HGB Conc 24.5 g/dL (31.8-35.4); Mean Corpuscular Volume 130.3 fl (80-94); Mean Platelet Volume 8.8 fl (7.4-10.4); Monocytes # 0.8 K/mm3 (0.1-1.0); Monocytes % 4.6 % (1.7-9.3); Neutrophils # 12.9 K/mm3 (1.8-7.8); Neutrophils % 70.2 % (37.0-80.0); Platelet Count 462 K/mm3 (142-424); Red Cell Distribution Width 13.9 % (11.5-17.5); White Blood Count 18.4 K/mm3 (4.8-10.8)
--- NOTE | 2019-03-06 17:04 | Emergency Department Note ---
ED Disposition Clinical Impression: Hyperkalemia DKA (diabetic ketoacidoses) Qualifiers: Diabetes mellitus type: type 1 Diabetes mellitus complication detail: without c jaquelin Qualified Code(s): E10.10 - Type 1 diabetes mellitus with ketoacidosis without coma Disposition: Admitted As Inpatient Condition on Discharge: Critical Instructions: DI for Hyperglycemia -- Adult Referrals: Alex Kaye MD [Primary Care Provider] - - Critical Care Critical Care Time: Yes Attestation: On 03/06/19, the high probability of a clinically significant, sudden or life threatening deterioration of the following system(s) required my full and direct attention, intervention and personal management. The time I documented below is in addition to time spent performing reported procedures but includes the following listed in this critical care notation. Total Critical Care Time: 40 Vital system(s) involved:: Metabolic Failure My critical care processes included: Assessment & monitoring of V/S, Initial and Re-exams, Data Review/Interpretation, Coordinating Care, Medication Orders and management, Documentation Medical Decision Making - Aung Inquiry Pt receiving controlled substance: No Vital Signs: 03/06/19 16:02 03/06/19 16:10 03/06/19 16:30 Temperature 98.5 F Temperature Source Oral Pulse Rate [Right Brachial] 180 H 185 H 186 H Respiratory Rate 42 H 42 H 42 H Blood Pressure [Right Arm] 99/61 L 99/61 L 89/52 L Blood Pressure Mean [Right Arm] 73 73 64 Blood Pressure Source [Right Arm] Automatic Cuff Automatic Cuff Automatic Cuff Blood Pressure Position [Right Arm] Supine Supine Supine 02 Sat by Pulse Oximetry 100 99 100 Oxygen Delivery Method Room Air Room Air Room Air Oxygen Flow Rate (LPM) 03/06/19 16:40 03/06/19 16:55 03/06/19 17:18 Temperature Temperature Source Pulse Rate [Right Brachial] 181 H 171 H 168 H Respiratory Rate 40 H 40 H 38 H Blood Pressure [Right Arm] 93/45 L 73/52 L 100/54 L Blood Pressure Mean [Right Arm] 61 59 69 Blood Pressure Source [Right Arm] Automatic Cuff Automatic Cuff Blood Pressure Position [Right Arm] Supine Supine Supine 02 Sat by Pulse Oximetry 100 100 100 Oxygen Delivery Method Room Air Room Air Room Air Oxygen Flow Rate (LPM) 03/06/19 17:53 Temperature Temperature Source Pulse Rate [Right Brachial] 164 H Respiratory Rate 20 Blood Pressure [Right Arm] 92/59 L Blood Pressure Mean [Right Arm] 70 Blood Pressure Source [Right Arm] Automatic Cuff Blood Pressure Position [Right Arm] Supine 02 Sat by Pulse Oximetry 97 Oxygen Delivery Method Nasal Cannula Oxygen Flow Rate (LPM) 2 - Lab Data Lab Results 03/06/19 16:01: Specimen Source L radial, ABG pH 6.87 L*, ABG pCO2 15.9 L, ABG pO2 153.7 H, ABG HCO3 2.8 L, ABG Total CO2 3.3 L, ABG O2 Saturation 99, ABG Base Excess -30.7 L, Dominik Test Acceptable 03/06/19 16:03: WBC 18.4 H, RBC 3.70 L, Hgb 11.8 L, Hct 48.2, MCV 130.3 H, MCH 31.9 H, MCHC 24.5 L, RDW 13.9, Plt Count 462 H, MPV 8.8, Neut % (Auto) 70.2, Lymph % (Auto) 24.5, [place] % (Auto) 4.6, Eos % (Auto) 0.3, Baso % (Auto) 0.4, Neut # (Auto) 12.9 H, Lymph # (Auto) 4.5, [place] # (Auto) 0.8, Eos # (Auto) 0.1, Baso # (Auto) 0.1, Total Counted 100, Neutrophils % (Manual) 72, Lymphocytes % (Manual) 21, Monocytes % (Manual) 7, Platelet Estimate Slight increase, Hypochromasia 1+, Macrocytosis 2+ 03/06/19 16:30: Urine Color Yellow, Urine Appearance Clear, Urine pH 5.5, Ur Specific [place] 1.020, Urine Protein 1+, Urine Glucose (UA) 3+, Urine Ketones 2+, Urine Blood 3+, Urine Nitrate Negative, Urine Bilirubin Negative, Urine Urobilinogen 0.2, Ur Leukocyte Esterase Negative, Urine RBC None, Urine WBC 3-5, Ur Squamous Epith Cells None, Urine Bacteria 2+ 03/06/19 16:30: Urine Opiates Screen Negative, Urine Methadone Screen Negative, Ur Barbituates Screen Negative, Ur Phencyclidine Scrn Negative, Ur Amphetamines Screen Negative, U Benzodiazepines Scrn Negative, Urine Cocaine Screen Negative, U Marijuana (THC) Screen Negative 03/06/19 17:10: Sodium 129 L, Potassium 8.2 H*, Chloride 90 L, Carbon Dioxide 5 L*, Anion Gap 42.2 H, BUN 47 H, Creatinine 2.98 H, Estimated Creat Clear 26, Estimated GFR 22 L, Est GFR ( Amer) 26 L, Glucose 1068 H*, Calcium 7.8 L, Troponin I < 0.02 03/06/19 17:10: Lactate 4.4 H Result diagrams: 03/06/19 16:03 03/06/19 17:10 Orders (Tests/Meds): ED MEDICATIONS Generic Name Dose Route Start Last Admin Trade Name Freq PRN Reason Stop Dose Admin Sodium Chloride 1,000 mls @ 999 mls/hr 03/06/19 16:45 03/06/19 16:46 Sod Chlor 0.9% 1000ml Bag IV 03/06/19 17:45 999 mls/hr .Q1H1M HUMBERTO Administration Sodium Chloride 1,000 mls @ 999 mls/hr 03/06/19 17:30 03/06/19 16:20 Sod Chlor 0.9% 1000ml Bag IV 03/06/19 19:30 999 mls/hr .Q1H1M HUMBERTO Administration Sodium Chloride 1,000 mls @ 999 mls/hr 03/06/19 17:30 03/06/19 17:15 Sod Chlor 0.9% 1000ml Bag IV 03/06/19 18:30 999 mls/hr .Q1H1M HUMBERTO Administration Sodium Chloride 1,000 mls @ 999 mls/hr 03/06/19 17:30 03/06/19 17:24 Sod Chlor 0.9% 1000ml Bag IV 03/06/19 18:30 999 mls/hr .Q1H1M HUMBERTO Administration Insulin Human Regular 100 unit 101 mls @ 6.872 mls/hr 03/06/19 18:00 / Sodium Chloride IV 04/05/19 17:59 .[id number] HUMBERTO Protocol 0.1 UNITS/KG/HR Discontinued Medications Generic Name Dose Route Start Last Admin Trade Name Freq PRN Reason Stop Dose Admin Calcium Gluconate 1,000 mg/ 35 mls @ 100 mls/hr 03/06/19 17:52 03/06/19 18:25 Sodium Chloride IV 03/06/19 18:12 100 mls/hr ONCE ONE Administration Insulin Human Regular 10 unit 03/06/19 17:45 03/06/19 17:55 Humulin R Insulin 100 Units/Ml 10ml Vial IVP 03/06/19 17:46 10 unit ONCE ONE Administration Sodium Bicarbonate 50 meq 03/06/19 16:16 03/06/19 16:46 Sodium Bicarbonate 8.4% 50ml Syringe IV 03/06/19 16:17 50 meq ONCE ONE Administration ORDERS Category Date Time Status Acetone, Serum (Rapid) Stat Lab 03/06/19 17:08 Ordered Liver Panel Stat Lab 03/06/19 17:10 Received Magnesium Stat Lab 03/06/19 17:10 Received Phosphorous Stat Lab 03/06/19 17:10 Received Blood Culture Stat Micro 03/06/19 16:20 Received Urine Culture Stat Micro 03/06/19 16:30 Received ABG [Arterial Blood Gas] Stat RT 03/06/19 18:05 Ordered - Radiology Data #1 Image(s): Chest Image Reviewed: Yes I have reviewed radiologist's interpretation FINDINGS: The cardiomediastinal silhouette and pulmonary vascularity are within normal limits. COPD Coronary artery stent is present. There is slightly elevated left hemidiaphragm. No lobar consolidation or collapse. There is an old left 4th and 5th rib fracture. IMPRESSION: COPD, no acute finding Dictated by: Dominik Phillips MD 03/06/2019 16:40 Electronically signed by Dominik Phillips MD in [place] 03/06/2019 16:40 - ECG Data Tracing #1 EKG interpreted by Carlton Loja MD: Rhythm: sinus tachycardia Rate: 119 [place]: normal Ectopy: none Conduction: Left bundle branch block ST Segment Changes: none T Wave Changes: Peaked in the anterior and inferior leads Q Waves: none No evidence of acute ischemia or injury Baseline artifact and wander present, but I consider the EKG adequate for accurate interpretation. - Physician Consults Physician Consulted: Mikki Time: 18:20 Reason -: Admission Comment/Response: Agrees to admit the patient to the hospital. We discussed the patient's clinical information, including history, exam, laboratory and radiology results and ED course. Per hospital procedure, I will write temporary bridge inpatient orders on the patient. Specific orders requested by the admitting physician: DKA order set General Adult HPI - General Chief complaint: Hyper/Hypoglycemia Stated complaint: Elevated blood sugar Time Seen by Provider: 03/06/19 16:30 Mode of Arrival: EMS Limitations: No Limitations Description of Symptoms (Recalled from ER Triage Doc. by RN): N/V for several days - History of Present Illness HPI narrative: Poor historian. Brought in by ambulance with high blood sugar, altered mental status. Reported to have nausea and vomiting for several days. Indicates to me he has not been using his insulin. - Related Data Home Medications Medication Instructions Recorded Confirmed nitroglycerin 0.4 mg sublingual 0.4 mg SUBLINGUAL Q5M PRN 08/08/17 02/01/19 tablet Blood Sugar Diagnostic [Advanced See Dose Instructions 1000units 01/11/19 02/01/19 Gluc Meter Test Strip] .ROUTE .MEDSUPPLY Clopidogrel Bisulfate [Plavix 75mg See Rx Instructions .ROUTE .COMPLEX 01/11/19 02/01/19 Tab] Empagliflozin [Jardiance] 10 mg PO DAILY 01/11/19 02/01/19 Furosemide [Furosemide 20mg Tab] 20 mg PO DAILY 01/11/19 02/01/19 Metformin HCl [Metformin 1000mg 1,000 mg PO BID 01/11/19 02/01/19 Tablets] Syringe-Needle,Insulin,0.5 ml See Dose Instructions unit .ROUTE 01/11/19 02/01/19 [Litetouch Insulin Syringe] .MEDSUPPLY Insulin Glargine,Hum.rec.anlog 6 unit SQ QHS 03/06/19 [Lantus Solostar U-100 Insulin] Previous Rx's Medication Instructions Recorded pantoprazole 40 mg tablet,delayed 40 mg PO DAILY #30 tab 09/04/18 release aspirin 81 mg tablet,delayed 81 mg PO DAILY #90 tab 01/03/19 release carvedilol 6.25 mg tablet 6.25 mg PO BID #60 tab 01/03/19 lisinopril 2.5 mg tablet 2.5 mg PO DAILY #90 tab 01/03/19 simvastatin 5 mg tablet 5 mg PO QPM #90 tab 01/03/19 gabapentin 400 mg capsule 400 mg PO BID #60 cap 02/01/19 insulin lispro protamine-lispro 27 unit SQ .in the morning #20 ml 02/01/19 100 unit/mL (75-25) subcutaneous susp Allergies Allergy/AdvReac Type Severity Reaction Status Date / Time Penicillins [PENICILLINS] Allergy Unknown Verified 03/06/19 16:09 [facility] History - Hepatitis A Screen Drug use history?: No High risk sexual behaviors?: No History of sexually transmitted infection?: No Currently employed?: No Childcare worker?: No Do you have indoor plumbing?: Yes Do you have electricity?: Yes Attestation statement:: This patient has been screened for Hepatitis A risk factors. I have reviewed the patient's past medical history: Yes Medical History: Reports:: Coronary Artery Disease, Diabetes Mellitus Type 1, Diabetes Mellitus Type 2, Hepatitis, Hyperlipidemia, Hypertension, Myocardial Infarction Denies:: Cancer, Internal Pacemaker, MRSA, Pulmonary Embolism, Seizures, Transient Ischemic Attacks (TIA) Other Medical History: Reports: Other Laterality Cases: Other Surgeries: Yes: Cardiac Catheterization, Colonoscopy, Coronary Stent, Splenectomy, Other. No: Pacemaker Amputation: No Fractures: Yes Comment: Patient has 3 heart stents.facial bone surgery with plates,left leg fx,rods and screws placed - Social History Smoking Status: Current every day smoker Tobacco Type: cigarettes # Packs/Day (cigarettes): 1 #Yrs smoked (if former smoker): 50 Alcohol Intake: never Alcohol Intake Frequency:: 0-2 drinks per day Substance Use Type: denies use Occupational Status: employed Housing: house Household Members: significant other Family Hx:: Coronary Artery Disease, Diabetes ROS Obtained: Yes unobtainable due to mental status Physical Exam - General General appearance: cachectic Comment: Extremely dry mucous membranes, thick tongue speech. Drowsy. Tachypneic. Tachycardic. Cachectic. - Head Head exam: atraumatic, normocephalic - Eye Eye exam: Present: normal appearance, EOMI - ENT ENT exam: Present: mucous membranes dry - Neck Neck exam: Present: normal inspection, trachea midline - Chest Chest inspection: Present: normal inspection, symmetric chest wall rise - Respiratory Respiratory exam: Present: normal lung sounds bilaterally. Absent: respiratory distress - Cardiovascular Cardiovascular exam: Present: normal rhythm, tachycardia - Abdominal Exam Abdominal exam: Present: soft. Absent: distention, tenderness - Extremities Exam Extremities exam: Present: normal inspection - Neurological Exam Neurological exam: Present: other (Drowsy) - Skin Skin exam: Present: warm, dry
[2019-03-06 17:06] LABS: Microscopic, Urine URINE MICROSCOPIC (MICROSCOPIC)
[2019-03-06 17:09] LABS: Appearance,Urine CLEAR (Clear); Blood, Urine 3+ (Negative); Color,Urine YELLOW (Yellow); Glucose,Urine (UA) 3+ (Negative); Ketones,Urine 2+ (Negative); Leukocyte Esterase,Urine Negative (Negative); PH,Urine 5.5 (5.0-8.5); Protein,Urine 1+ (Negative); Urobilinogen,Urine 0.2 EU/dl (0.2)
[2019-03-06 17:22] LABS: Bilirubin,Urine Negative (Negative)
[2019-03-06 17:30] LABS: Amphetamine/Metha Screen,Urine Negative ng/mL (<1000); Barbiturates Screen,Urine Negative ng/mL (<200); Benzodiazepines Screen,Urine Negative ng/mL (<200); Cannabinoid Screen,Urine Negative ng/mL (<50); Cocaine Screen,Urine Negative ng/mL (<300); Methadone Screen,Urine Negative ng/mL (<300); Opiate Screen,Urine Negative ng/mL (<300); Phencyclidine Screen,Urine Negative ng/mL (<25)
[2019-03-06 17:31] LABS: Hypochromasia 1+; Lymphocytes % 21 % (10-50); Macrocytosis 2+; Monocytes % 7 % (2-9); Neutrophils % 72 % (42-76); Total Cells Counted 100
[2019-03-06 17:39] LABS: Blood Urea Nitrogen 47 mg/dL (7-18); Calcium 7.8 mg/dL (8.5-10.1); Chloride 90 mmol/L (98-107); Sodium 129 mmol/L (136-145)
[2019-03-06 17:43] LABS: Anion Gap 42.2 mEq/L (5-15)
[2019-03-06 17:44] LABS: Carbon Dioxide 5 mmol/L (21.0-32.0); Glucose 1068 mg/dL (74-106)
[2019-03-06 18:11] LABS: Bacteria,Urine 2+ /lpf
[2019-03-06 18:48] LABS: Albumin Level 3.2 gm/dL (3.4-5.0); Bilirubin,Direct 0.1 mg/dL (0.0-0.2); Bilirubin,Indirect 0.4 mg/dL (0.0-0.9); Bilirubin,Total 0.5 mg/dL (0.2-1.0); Total Protein,Serum 7.3 gm/dL (6.4-8.2)
[2019-03-06 18:49] LABS: Phosphorous 9.9 mg/dL (2.4-4.9)
[2019-03-06 20:04] LABS: Anion Gap 38.1 mEq/L (5-15); Calcium 7.9 mg/dL (8.5-10.1)
[2019-03-07 01:23] LABS: Calcium 7.8 mg/dL (8.5-10.1)
[2019-03-07 04:34] LABS: Anion Gap 19.5 mEq/L (5-15); Calcium 7.5 mg/dL (8.5-10.1)
--- NOTE | 2019-03-07 07:49 | Pharmacy Consult Notes ---
- Pharmacy Consult Date: 03/07/19 Time: 07:48 Referring provider: DR. THAO Reason for Consult:: VANCOMYCIN DOSING Allergies and ADEs:: Allergies Allergy/AdvReac Type Severity Reaction Status Date / Time Penicillins [PENICILLINS] Allergy Unknown Verified 03/07/19 02:36 Home Medications:: Home Medications Medication Instructions Recorded Confirmed Type nitroglycerin 0.4 mg sublingual 0.4 mg SUBLINGUAL Q5M PRN 08/08/17 03/06/19 History tablet pantoprazole 40 mg tablet,delayed 40 mg PO DAILY #30 tab 09/04/18 03/06/19 Rx release aspirin 81 mg tablet,delayed 81 mg PO DAILY #90 tab 01/03/19 03/06/19 Rx release carvedilol 6.25 mg tablet 6.25 mg PO BID #60 tab 01/03/19 03/06/19 Rx lisinopril 2.5 mg tablet 2.5 mg PO DAILY #90 tab 01/03/19 03/06/19 Rx simvastatin 5 mg tablet 5 mg PO QPM #90 tab 01/03/19 03/06/19 Rx Blood Sugar Diagnostic [Advanced See Dose Instructions 1000units 01/11/19 03/06/19 History Gluc Meter Test Strip] .ROUTE .MEDSUPPLY Clopidogrel Bisulfate [Plavix 75mg See Rx Instructions .ROUTE .COMPLEX 01/11/19 03/06/19 History Tab] Empagliflozin [Jardiance] 10 mg PO DAILY 01/11/19 03/06/19 History Furosemide [Furosemide 20mg Tab] 20 mg PO DAILY 01/11/19 03/06/19 History Metformin HCl [Metformin 1000mg 1,000 mg PO BID 01/11/19 03/06/19 History Tablets] Syringe-Needle,Insulin,0.5 ml See Dose Instructions unit .ROUTE 01/11/19 03/06/19 History [Litetouch Insulin Syringe] .MEDSUPPLY gabapentin 400 mg capsule 400 mg PO BID #60 cap 02/01/19 03/06/19 Rx insulin lispro protamine-lispro 27 unit SQ .in the morning #20 ml 02/01/19 03/06/19 Rx 100 unit/mL (75-25) subcutaneous susp Insulin Glargine,Hum.rec.anlog 6 unit SQ QHS 03/06/19 03/06/19 History [Lantus Solostar U-100 Insulin] Height: 1.83 m Weight: 66.253 kg Laboratory Results:: Laboratory Results - last 24 hr 03/06/19 16:01: Specimen Source L radial, ABG pH 6.87 L*, ABG pCO2 15.9 L, ABG pO2 153.7 H, ABG HCO3 2.8 L, ABG Total CO2 3.3 L, ABG O2 Saturation 99, ABG Base Excess -30.7 L, Dominik Test Acceptable 03/06/19 16:03: WBC 18.4 H, RBC 3.70 L, Hgb 11.8 L, Hct 48.2, MCV 130.3 H, MCH 31.9 H, MCHC 24.5 L, RDW 13.9, Plt Count 462 H, MPV 8.8, Neut % (Auto) 70.2, Lymph % (Auto) 24.5, [place] % (Auto) 4.6, Eos % (Auto) 0.3, Baso % (Auto) 0.4, Neut # (Auto) 12.9 H, Lymph # (Auto) 4.5, [place] # (Auto) 0.8, Eos # (Auto) 0.1, Baso # (Auto) 0.1, Total Counted 100, Neutrophils % (Manual) 72, Lymphocytes % (Manual) 21, Monocytes % (Manual) 7, Platelet Estimate Slight increase, Hypochromasia 1+, Macrocytosis 2+ 03/06/19 16:30: Urine Color Yellow, Urine Appearance Clear, Urine pH 5.5, Ur Specific [place] 1.020, Urine Protein 1+, Urine Glucose (UA) 3+, Urine Ketones 2+, Urine Blood 3+, Urine Nitrate Negative, Urine Bilirubin Negative, Urine Urobilinogen 0.2, Ur Leukocyte Esterase Negative, Urine RBC None, Urine WBC 3-5, Ur Squamous Epith Cells None, Urine Bacteria 2+ 03/06/19 16:30: Urine Opiates Screen Negative, Urine Methadone Screen Negative, Ur Barbituates Screen Negative, Ur Phencyclidine Scrn Negative, Ur Amphetamines Screen Negative, U Benzodiazepines Scrn Negative, Urine Cocaine Screen Negative, U Marijuana (THC) Screen Negative 03/06/19 17:10: Sodium 129 L, Potassium 8.2 H*, Chloride 90 L, Carbon Dioxide 5 L*, Anion Gap 42.2 H, BUN 47 H, Creatinine 2.98 H, Estimated Creat Clear 26, Estimated GFR 22 L, Est GFR ( Amer) 26 L, Glucose 1068 H*, Calcium 7.8 L, Troponin I < 0.02 03/06/19 17:10: Lactate 4.4 H 03/06/19 17:10: Phosphorus 9.9 H, Magnesium 2.5 H, Total Bilirubin 0.5, Direct Bilirubin 0.1, Indirect Bilirubin 0.4, AST 14 L, ALT 18, Alkaline Phosphatase 98, Total Protein 7.3, Albumin 3.2 L 03/06/19 18:25: Acetone Level Moderate 03/06/19 19:30: POC Glucose > 600 H* 03/06/19 19:46: Sodium 135 L, Potassium 6.1 H* D, Chloride 96 L, Carbon Dioxide 7 L* D, Anion Gap 38.1 H, BUN 46 H, Creatinine 2.77 H, Estimated Creat Clear 28, Estimated GFR 24 L, Est GFR ( Amer) 29 L, Glucose 749 H* D, Calcium 7.9 L 03/06/19 20:05: POC Glucose > 600 H* 03/06/19 20:56: POC Glucose > 600 H* 03/06/19 21:16: Lactate 1.9 03/06/19 21:16: Random Glucose 741 H* 03/06/19 21:59: POC Glucose > 600 H* 03/06/19 22:10: Random Glucose 723 H* 03/06/19 22:57: POC Glucose 493 H* 03/06/19 23:20: Random Glucose 510 H* D 03/06/19 23:57: POC Glucose 461 H* 03/07/19 00:25: Sodium 143, Potassium 5.0, Chloride 108 H, Carbon Dioxide 9 L* D , Anion Gap 31.0 H, BUN 44 H, Creatinine 2.25 H, Estimated Creat Clear 33, Estimated GFR 30 L, Est GFR ( Amer) 36 L D, Glucose 424 H* D, Calcium 7.8 L 03/07/19 00:54: POC Glucose 384 H* 03/07/19 01:55: POC Glucose 344 H* 03/07/19 02:40: POC Glucose 263 H 03/07/19 03:43: POC Glucose 224 H 03/07/19 04:17: Sodium 149 H, Potassium 4.5, Chloride 115 H, Carbon Dioxide 19 L D, Anion Gap 19.5 H, BUN 38 H, Creatinine 1.87 H, Estimated Creat Clear 40, Estimated GFR 37 L, Est GFR ( Amer) 45 L D, Glucose 219 H D, Calcium 7.5 L 03/07/19 04:41: POC Glucose 200 H 03/07/19 05:54: POC Glucose 152 H Medical History: Reports:: Coronary Artery Disease, Diabetes Mellitus Type 1, Hepatitis, Hyperlipidemia, Hypertension, Myocardial Infarction Denies:: Cancer, Diabetes Mellitus Type 2, Internal Pacemaker, MRSA, Pulmonary Embolism, Seizures, Transient Ischemic Attacks (TIA) Assessment and Plan - Assessment and plan all Dx Assessment and Plan for all problems:: BASED ON PATIENT'S FACTORS, RECOMMEND CONTINUING WITH VANCOMYCIN 1250 MG Q24H AT THIS TIME. PHARMACY WILL FOLLOW DAILY AND ADJUST APPROPRIATE.
--- NOTE | 2019-03-07 07:53 | Pharmacy Consult Notes ---
[facility] Pharmacy VTE Monitoring - Patient Demographics Admission date: 03/07/19 Report Date: 03/07/19 Time: 07:53 Allergies/Adverse Reactions: Patient Allergies Penicillins [PENICILLINS] Allergy (Unknown, Verified 03/07/19 02:36) Height: 1.83 m Weight: 66.253 kg Patient Problems: Current Active Problems DKA (diabetic ketoacidoses) (Acute) Hyperkalemia (Acute) - VTE Risk Labs: VTE Related Lab Results Hgb 11.8 g/dL (14.1-18.0) L 03/06/19 16:03 Hct 48.2 % (42.0-52.0) 03/06/19 16:03 Plt Count 462 K/mm3 (142-424) H 03/06/19 16:03 BUN 38 mg/dL (7-18) H 03/07/19 04:17 Creatinine 1.87 mg/dL (0.70-1.30) H 03/07/19 04:17 Estimated Creat Clear 40 mL/min (50-200) 03/07/19 04:17 Was VTE Risk Assessment Performed: Yes VTE Score: 3 VTE Risk Level: Low Risk Clinical Trial Participant: No - Prophylaxis VTE Prophylaxis Ordered?: Yes Types of VTE Prophylaxis: TEDS Knee High
[2019-03-07 09:17] LABS: Anion Gap 16.2 mEq/L (5-15); Calcium 7.5 mg/dL (8.5-10.1)
--- NOTE | 2019-03-07 16:45 | History & Physical Report ---
*Admission Date: 03/07/19 *Chief complaint: altered mental status *History of present illness: this wm who is an iddm presented to ed with n/v and change in mental status - he was found to have sev dka oor historian. Brought in by ambulance with high blood sugar, altered mental status. Reported to have nausea and vomiting for several days. Indicates to me he has not been using his insulin. pt was admitted for ivf and insulin [facility] History I have reviewed the patient's past medical history: Yes Medical History: Reports:: Coronary Artery Disease, Diabetes Mellitus Type 1, Hepatitis, Hyperlipidemia, Hypertension, Myocardial Infarction Denies:: Cancer, Diabetes Mellitus Type 2, Internal Pacemaker, MRSA, Pulmonary Embolism, Seizures, Transient Ischemic Attacks (TIA) *Have you ever received a pneumonia vaccine?: No (unable to obtain) *Have you received a flu vaccine this season?: No (unable to obtain) Other Medical History: Reports: Other Laterality Cases: Left: Other Other Surgeries: Yes: Cardiac Catheterization, Colonoscopy, Coronary Stent, Splenectomy, Other. No: Pacemaker Amputation: No Fractures: Yes - *Social History Smoking Status: Current every day smoker Tobacco Type: cigarettes # Packs/Day (cigarettes): 1 #Yrs smoked (if former smoker): 50 Alcohol Intake: never Alcohol Intake Frequency:: 0-2 drinks per day Substance Use Type: denies use *Occupational Status:: employed Housing: house Household Members: significant other *Travel in the last 8 weeks: None Family Hx:: Coronary Artery Disease, Diabetes Review of Systems - Review of Systems Review of systems:: pertinent systems reviewed and negative unless documented below - Constitutional Reports weakness, Denies fever(s) - Eyes Denies blurry vision - ENT Denies sore throat - *Cardiovascular Denies chest pain - *Respiratory Denies cough - *Gastrointestinal Reports nausea, Reports vomiting, Denies abdominal pain - *Genitourinary Denies blood in urine - *Musculoskeletal Denies joint pain - Integumentary/Breasts Denies rash - *Neurologic Reports localized weakness, Denies seizure-like activity - Psychiatric Denies anxiety Meds Home Medications Medication Instructions Recorded Confirmed Type nitroglycerin 0.4 mg sublingual 0.4 mg SUBLINGUAL Q5M PRN 08/08/17 03/06/19 History tablet pantoprazole 40 mg tablet,delayed 40 mg PO DAILY #30 tab 09/04/18 03/06/19 Rx release aspirin 81 mg tablet,delayed 81 mg PO DAILY #90 tab 01/03/19 03/06/19 Rx release carvedilol 6.25 mg tablet 6.25 mg PO BID #60 tab 01/03/19 03/06/19 Rx lisinopril 2.5 mg tablet 2.5 mg PO DAILY #90 tab 01/03/19 03/06/19 Rx Blood Sugar Diagnostic [Advanced See Dose Instructions 1000units 01/11/19 03/06/19 History Gluc Meter Test Strip] .ROUTE .MEDSUPPLY Clopidogrel Bisulfate [Plavix 75mg 75 mg PO DAILY 01/11/19 03/07/19 History Tab] Empagliflozin [Jardiance] 10 mg PO DAILY 01/11/19 03/06/19 History Furosemide [Furosemide 20mg Tab] 20 mg PO DAILY 01/11/19 03/06/19 History Metformin HCl [Metformin 1000mg 1,000 mg PO BID 01/11/19 03/06/19 History Tablets] Syringe-Needle,Insulin,0.5 ml See Dose Instructions unit .ROUTE 01/11/19 03/06/19 History [Litetouch Insulin Syringe] .MEDSUPPLY gabapentin 400 mg capsule 400 mg PO BID #60 cap 02/01/19 03/06/19 Rx Insulin Glargine,Hum.rec.anlog 6 unit SQ HS 03/06/19 03/07/19 History [Lantus Solostar U-100 Insulin] Insulin Lispro Protamin/Lispro 0 unit SQ DIRECTED 03/07/19 03/07/19 History [Humalog Mix 75-25(U-100)Insuln] Simvastatin 5 mg PO HS 03/07/19 03/07/19 History Allergies Allergy/AdvReac Type Severity Reaction Status Date / Time Penicillins [PENICILLINS] Allergy Unknown Verified 03/07/19 02:36 Exam Vital signs and Labs for Last 24 Hours: Temp Pulse Resp BP Pulse Ox 97.9 F 86 16 98/52 L 98 03/07/19 08:00 03/07/19 16:00 03/07/19 16:00 03/07/19 16:00 03/07/19 16:00 Laboratory Results - last 24 hr 03/06/19 16:03: Total Counted 100, Neutrophils % (Manual) 72, Lymphocytes % (Manual) 21, Monocytes % (Manual) 7, Platelet Estimate Slight increase, Hypochromasia 1+, Macrocytosis 2+ 03/06/19 16:30: Urine Color Yellow, Urine Appearance Clear, Urine pH 5.5, Ur Specific [place] 1.020, Urine Protein 1+, Urine Glucose (UA) 3+, Urine Ketones 2+, Urine Blood 3+, Urine Nitrate Negative, Urine Bilirubin Negative, Urine Urobilinogen 0.2, Ur Leukocyte Esterase Negative, Urine RBC None, Urine WBC 3-5, Ur Squamous Epith Cells None, Urine Bacteria 2+ 03/06/19 16:30: Urine Opiates Screen Negative, Urine Methadone Screen Negative, Ur Barbituates Screen Negative, Ur Phencyclidine Scrn Negative, Ur Amphetamines Screen Negative, U Benzodiazepines Scrn Negative, Urine Cocaine Screen Negative, U Marijuana (THC) Screen Negative 03/06/19 17:10: Sodium 129 L, Potassium 8.2 H*, Chloride 90 L, Carbon Dioxide 5 L*, Anion Gap 42.2 H, BUN 47 H, Creatinine 2.98 H, Estimated Creat Clear 26, Estimated GFR 22 L, Est GFR ( Amer) 26 L, Glucose 1068 H*, Calcium 7.8 L, Troponin I < 0.02 03/06/19 17:10: Lactate 4.4 H 03/06/19 17:10: Phosphorus 9.9 H, Magnesium 2.5 H, Total Bilirubin 0.5, Direct Bilirubin 0.1, Indirect Bilirubin 0.4, AST 14 L, ALT 18, Alkaline Phosphatase 98, Total Protein 7.3, Albumin 3.2 L 03/06/19 18:25: Acetone Level Moderate 03/06/19 19:30: POC Glucose > 600 H* 03/06/19 19:46: Sodium 135 L, Potassium 6.1 H* D, Chloride 96 L, Carbon Dioxide 7 L* D, Anion Gap 38.1 H, BUN 46 H, Creatinine 2.77 H, Estimated Creat Clear 28, Estimated GFR 24 L, Est GFR ( Amer) 29 L, Glucose 749 H* D, Calcium 7.9 L 03/06/19 20:05: POC Glucose > 600 H* 03/06/19 20:56: POC Glucose > 600 H* 03/06/19 21:16: Lactate 1.9 03/06/19 21:16: Random Glucose 741 H* 03/06/19 21:59: POC Glucose > 600 H* 03/06/19 22:10: Random Glucose 723 H* 03/06/19 22:57: POC Glucose 493 H* 03/06/19 23:20: Random Glucose 510 H* D 03/06/19 23:57: POC Glucose 461 H* 03/07/19 00:25: Sodium 143, Potassium 5.0, Chloride 108 H, Carbon Dioxide 9 L* D , Anion Gap 31.0 H, BUN 44 H, Creatinine 2.25 H, Estimated Creat Clear 33, Estimated GFR 30 L, Est GFR ( Amer) 36 L D, Glucose 424 H* D, Calcium 7.8 L 03/07/19 00:54: POC Glucose 384 H* 03/07/19 01:55: POC Glucose 344 H* 03/07/19 02:40: POC Glucose 263 H 03/07/19 03:43: POC Glucose 224 H 03/07/19 04:17: Sodium 149 H, Potassium 4.5, Chloride 115 H, Carbon Dioxide 19 L D, Anion Gap 19.5 H, BUN 38 H, Creatinine 1.87 H, Estimated Creat Clear 40, Estimated GFR 37 L, Est GFR ( Amer) 45 L D, Glucose 219 H D, Calcium 7.5 L 03/07/19 04:41: POC Glucose 200 H 03/07/19 05:54: POC Glucose 152 H 03/07/19 06:46: POC Glucose 130 H 03/07/19 08:02: POC Glucose 171 H 03/07/19 08:25: Sodium 148 H, Potassium 4.2, Chloride 114 H, Carbon Dioxide 22, Anion Gap 16.2 H, BUN 34 H, Creatinine 1.50 H, Estimated Creat Clear 50, Estimated GFR 48 L, Est GFR ( Amer) 58 L D, Glucose 189 H, Calcium 7.5 L 03/07/19 08:25: Acetone Level None detected 03/07/19 09:09: POC Glucose 189 H 03/07/19 11:02: POC Glucose 230 H I & O for Last 24 hours: Intake & Output 03/05/19 03/06/19 03/07/19 03/08/19 11:59 11:59 11:59 11:59 Intake Total 8263 / 8263 360 / 360 Output Total 3650 / 3650 1999 Balance 4613 / 4613 -1640 / -1640 Weight 146 lb 1 oz 146 lb 1.006 oz Microbiology Reports for the Last 24 Hours: Microbiology 03/07/19 03:45 Sputum - Expectorated Sputum Gram Stain - Final - Constitutional average body habitus, somnolent - *Routine HEENT Exam Head: Present: normocephalic Eye: Present: EOMI, PERRL. Absent: conjunctival icterus ENT: Present: mucous membranes dry - *Routine Respiratory Exam Present: decreased breath sounds - *Routine Cardiovascular Exam Present: RRR, murmur - *Routine Abdominal Exam Present: soft - *Routine Extremities Exam Absent: calf tenderness - *Routine Skin Exam Present: intact - *Routine Neurological Exam Present: altered mental status - Routine Psychiatric Exam Present: unable to assess Assessment and Plan (1) Diabetes mellitus, insulin dependent (IDDM), uncontrolled Current visit: Yes Status: Acute Category: Medical Code(s): E11.65 - Type 2 diabetes mellitus with hyperglycemia; Z79.4 - exterminator termite (current) use of insulin (2) DKA (diabetic ketoacidoses) Current visit: Yes Status: Acute Qualifiers: Diabetes mellitus type: type 1 Diabetes mellitus complication detail: without coma Qualified Code(s): E10.10 - Type 1 diabetes mellitus with ketoacidosis without coma Category: Medical Code(s): E11.10 - Type 2 diabetes mellitus with ketoacidosis without coma (3) COPD (chronic obstructive pulmonary disease) Current visit: Yes Status: Acute Qualifiers: COPD type: unspecified COPD Qualified Code(s): J44.9 - Chronic obstructive pulmonary disease, unspecified Category: Medical Code(s): J44.9 - Chronic obstructive pulmonary disease, unspecified (4) CAP (community acquired pneumonia) Current visit: No Status: Acute Qualifiers: Laterality: right Lung location: lower lobe of lung Qualified Code(s): J18.1 - Lobar pneumonia, unspecified organism Category: Medical Code(s): J18.9 - Pneumonia, unspecified organism (5) Sepsis Current visit: Yes Status: Acute Qualifiers: Sepsis type: sepsis due to unspecified organism Sepsis acute organ dysfunction status: with acute organ dysfunction Severe sepsis acute organ dysfunction type: unspecified Category: Medical Code(s): A41.9 - Sepsis, unspecified organism
--- NOTE | 2019-03-07 18:30 | Electrocardiograph Report ---
APPROVED REPORT Exam: Resting ECG HR:122 bpm ECG Measurements Heart Rate 122 AXES GA 196 P 79 QRSd 142 QRS -61 QT 440 T76 QTc 627 <Conclusion> Sinus rhythm Left axis deviation Left bundle branch block Abnormal ECG Electronically signed by : Vipul Platt, 03/07/2019 18:30:00
[2019-03-07 18:47] LABS: Anion Gap 17.9 mEq/L (5-15); Calcium 7.7 mg/dL (8.5-10.1)
[2019-03-08 06:18] LABS: Anion Gap 14.5 mEq/L (5-15); Calcium 7.8 mg/dL (8.5-10.1)
--- NOTE | 2019-03-08 09:41 | Discharge Summary ---
General - General Admission date:: 03/06/19 Discharge date: 03/08/19 HPI HPI: this wm who is an iddm presented to ed with n/v and change in mental status - he was found to have sev dka oor historian. Brought in by ambulance with high blood sugar, altered mental status. Reported to have nausea and vomiting for several days. Indicates to me he has not been using his insulin. pt was admitted for ivf and insulin Hospital Course Hospital Course: DKA-placed on insulin drip until acetone negative, IV fluids for hydration Antibiotics for pneumonia Patient takes 75/25 27 units in the a.m. and 33 units in the p.m. Patient states he has not been taking his long-acting insulin due to the insurance not covering it. Will discharge home today follow-up in 1 week and then again on 17 March. Patient will need to keep a log of all fingersticks and bring them to his appointment. Discussed with patient the importance of sick day early treatment. Discussed with patient that if any time he is unable to drink or eat he needs to get seen in the office or ER as soon as possible due to his brittle diabetes. Will discharge home on antibiotics for pneumonia. Objective Vital signs: Temp Pulse Resp BP Pulse Ox 98.9 F 81 12 105/59 L 96 03/08/19 08:00 03/08/19 06:00 03/08/19 06:00 03/08/19 06:00 03/08/19 06:00 no acute distress - *Routine HEENT Exam Head: Present: normocephalic Eye: Present: PERRL ENT: Present: mucous membranes moist - *Routine Respiratory Exam Present: decreased breath sounds, CTA bilaterally - *Routine Cardiovascular Exam Present: RRR - *Routine Abdominal Exam Present: soft, normoactive bowel sounds - *Routine Extremities Exam Present: full ROM - *Routine Skin Exam Present: intact - *Routine Neurological Exam Present: alert, oriented X3 - Routine Psychiatric Exam Present: normal affect Results Labs on day of discharge: Labs from last 24 hours 03/08/19 03/08/19 03/07/19 05:50 05:36 20:11 Sodium 143 Potassium 3.5 Chloride 109 H Carbon Dioxide 23 Anion Gap 14.5 BUN 20 H Creatinine 0.91 D Estimated Creat Clear 89 Estimated GFR 86 Est GFR ( Amer) 104 D Glucose 260 H POC Glucose 237 H 228 H Calcium 7.8 L 03/07/19 03/07/19 03/07/19 18:05 16:02 11:02 Sodium 142 Potassium 3.9 Chloride 108 H Carbon Dioxide 20 L Anion Gap 17.9 H BUN 26 H Creatinine 1.35 H Estimated Creat Clear 56 Estimated GFR 54 L Est GFR ( Amer) 66 Glucose 278 H D POC Glucose 307 H* 230 H Calcium 7.7 L 03/07/19 03/07/19 03/07/19 09:09 08:02 06:46 Sodium Potassium Chloride Carbon Dioxide Anion Gap BUN Creatinine Estimated Creat Clear Estimated GFR Est GFR ( Amer) Glucose POC Glucose 189 H 171 H 130 H Calcium Preliminary micro results at discharge 03/07/19 03:45 Sputum Culture - Preliminary Sputum - Expectorated Sputum Gram Negative Rods 03/06/19 16:30 Urine Culture - Preliminary Urine,Catheterized NO GROWTH AFTER 24 HOURS - Additional Comments Rounded with Dr. Kaye all orders per Mikki DS: Diagnosis - Discharge Diagnosis (1) Diabetes mellitus, insulin dependent (IDDM), uncontrolled Status: Acute (2) DKA (diabetic ketoacidoses) Status: Acute (3) COPD (chronic obstructive pulmonary disease) Status: Acute (4) CAP (community acquired pneumonia) Status: Acute (5) Sepsis Status: Acute (6) Coronary arteriosclerosis Status: Chronic Discharge Plan - Patient Discharge Instructions ACTIVITY: Continue current activity DIET: continue same diet Patient Instructions: DI for Pneumonia -- Adult, DI for Hyperkalemia, Diabetic Ketoacidosis, DI for Diabetic Ketoacidosis, Hyperkalemia - Follow up Plan Follow up with: Alex Kaye MD [Primary Care Provider] - Leandra Bassett APRN [Advanced Practice Nurse] - 1 week Disposition: Home, Self-Jail Medications: Home Medications Medication Instructions Recorded Confirmed Type nitroglycerin 0.4 mg sublingual 0.4 mg SUBLINGUAL Q5M PRN 08/08/17 03/06/19 History tablet pantoprazole 40 mg tablet,delayed 40 mg PO DAILY #30 tab 09/04/18 03/06/19 Rx release aspirin 81 mg tablet,delayed 81 mg PO DAILY #90 tab 01/03/19 03/06/19 Rx release carvedilol 6.25 mg tablet 6.25 mg PO BID #60 tab 01/03/19 03/06/19 Rx lisinopril 2.5 mg tablet 2.5 mg PO DAILY #90 tab 01/03/19 03/06/19 Rx Blood Sugar Diagnostic [Advanced See Dose Instructions 1000units 01/11/19 03/06/19 History Gluc Meter Test Strip] .ROUTE .MEDSUPPLY Clopidogrel Bisulfate [Plavix 75mg 75 mg PO DAILY 01/11/19 03/07/19 History Tab] Empagliflozin [Jardiance] 10 mg PO DAILY 01/11/19 03/06/19 History Furosemide [Furosemide 20mg Tab] 20 mg PO DAILY 01/11/19 03/06/19 History Metformin HCl [Metformin 1000mg 1,000 mg PO BID 01/11/19 03/06/19 History Tablets] Syringe-Needle,Insulin,0.5 ml See Dose Instructions unit .ROUTE 01/11/19 03/06/19 History [Litetouch Insulin Syringe] .MEDSUPPLY gabapentin 400 mg capsule 400 mg PO BID #60 cap 02/01/19 03/06/19 Rx Insulin Lispro Protamin/Lispro 0 unit SQ DIRECTED 03/07/19 03/07/19 History [Humalog Mix 75-25(U-100)Insuln] Simvastatin 5 mg PO HS 03/07/19 03/07/19 History Azithromycin [Zithromax 250mg 250 mg PO DIRECTED #6 tab 03/08/19 Rx tab] Insulin Glargine,Hum.rec.anlog 8 unit SQ HS 30 Days #1 insuln.pen 03/08/19 Rx [Basaglar Kwikpen U-100] cephALEXin [Keflex 500mg Cap] 500 mg PO BID 10 Days #20 cap 03/08/19 Rx Prescriptions/Medication Reconciliation: New Azithromycin [Zithromax 250mg tab] 250 mg PO DIRECTED #6 tab cephALEXin [Keflex 500mg Cap] 500 mg PO BID 10 Days #20 cap Continued nitroglycerin 0.4 mg sublingual tablet 0.4 mg SUBLINGUAL Q5M PRN PRN Reason: Chest Pain pantoprazole 40 mg tablet,delayed release 40 mg PO DAILY #30 tab carvedilol 6.25 mg tablet 6.25 mg PO BID #60 tab aspirin 81 mg tablet,delayed release 81 mg PO DAILY #90 tab lisinopril 2.5 mg tablet 2.5 mg PO DAILY #90 tab gabapentin 400 mg capsule 400 mg PO BID #60 cap Syringe-Needle,Insulin,0.5 ml [Litetouch Insulin Syringe] See Dose Instructions unit .ROUTE .MEDSUPPLY Furosemide [Furosemide 20mg Tab] 20 mg PO DAILY Clopidogrel Bisulfate [Plavix 75mg Tab] 75 mg PO DAILY Blood Sugar Diagnostic [Advanced Gluc Meter Test Strip] See Dose Instructions 1000units .ROUTE .MEDSUPPLY Metformin HCl [Metformin 1000mg Tablets] 1,000 mg PO BID Simvastatin 5 mg PO HS Insulin Lispro Protamin/Lispro [Humalog Mix 75/25 100 Units/mL 10mL Vial] 0 unit SQ DIRECTED #0 Changed Insulin Glargine,Hum.rec.anlog [Julia Cooper U-100] 8 unit SQ HS 30 Days #1 insuln.pen Discontinued Empagliflozin [Jardiance] 10 mg PO DAILY - Problem Reconciliation Problems Reviewed?: Yes
== END 2019-03-08 16:30 | disposition home or self-care (01) | DRG 639 ==
LOC: ER 15:59 → 2ND 18:27
PROVIDERS: ADMIT Emergency Medicine; ATTEND Emergency Medicine
CPT/HCPCS: 36415; 71010; 71045; 80048; 80076; 80305; 81001; 82009; 82803; 82947; 82962; 83605; 83735; 84100; 84484; 85007; 85025; 87040; 87070; 87077; 87086; 87186; 87205; 90686; 90732; 93005; 96365; 96366; 96367; 96375; 99285; J3370

== ENCOUNTER 2019-05-25 00:47 | Inpatient (IN) ==
[2019-05-25 00:44] LABS: ABG HCO3 2.9 mmhg (22.0-26.0); ABG Oxygen Saturation 97 % (90-100); ABG PO2 120.2 mmhg (80-100); ABG TCO2 3.3 mmhg (23-27)
[2019-05-25 00:46] LABS: Allen's Test Patient Unable; Oxygen 2 LPM NC %
--- NOTE | 2019-05-25 00:46 | Emergency Department Note ---
ED Disposition Clinical Impression: DKA, type 1 Qualifiers: Diabetes mellitus complication detail: without coma Qualified Code(s): E10.10 - Type 1 diabetes mellitus with ketoacidosis without coma Pneumonia Qualifiers: Pneumonia type: due to unspecified organism Laterality: right Lung location: middle lobe of lung Qualified Code(s): J18.9 - Pneumonia, unspecified organism Disposition: Admitted As Inpatient Condition on Discharge: Critical - Critical Care Critical Care Time: Yes Attestation: On , the high probability of a clinically significant, sudden or life threatening deterioration of the following system(s) required my full and direct attention, intervention and personal management. The time I documented below is in addition to time spent performing reported procedures but includes the following listed in this critical care notation. Vital system(s) involved:: Metabolic Failure My critical care processes included: Assessment & monitoring of V/S, Initial and Re-exams, Data Review/Interpretation, Coordinating Care, Medication Orders and management, Documentation Medical Decision Making - Aung Inquiry Pt receiving controlled substance: No Vital Signs: 05/25/19 00:40 05/25/19 00:45 05/25/19 02:00 Temperature 97.3 F L Temperature Source Rectal Pulse Rate 125 H Pulse Rate [Left Radial] 95 H 108 H Respiratory Rate 24 26 H Blood Pressure [Right Arm] 115/70 109/62 L Blood Pressure Mean [Right Arm] 85 77 Blood Pressure Source [Right Arm] Automatic Cuff Blood Pressure Position [Right Arm] Supine 02 Sat by Pulse Oximetry 90 L 95 Oxygen Delivery Method Room Air BiPAP Oxygen Flow Rate (LPM) 05/25/19 05:30 Temperature Temperature Source Pulse Rate Pulse Rate [Left Radial] 109 H Respiratory Rate 16 Blood Pressure [Right Arm] 123/70 Blood Pressure Mean [Right Arm] 87 Blood Pressure Source [Right Arm] Blood Pressure Position [Right Arm] 02 Sat by Pulse Oximetry 100 Oxygen Delivery Method Nasal Cannula Oxygen Flow Rate (LPM) 2 - Lab Data Lab Results 05/25/19 00:30: Urine Color Yellow, Urine Appearance Clear, Urine pH 5.5, Ur Specific [place] >= 1.030, Urine Protein 1+, Urine Glucose (UA) 2+, Urine Ketones 1+, Urine Blood 1+, Urine Nitrate Negative, Urine Bilirubin Negative, Urine Urobilinogen 0.2, Ur Leukocyte Esterase Negative, Urine RBC 3-5, Urine WBC Occasional, Ur Squamous Epith Cells Occasional, Urine Bacteria Trace, Hyaline Casts 3-5, Fine Granular Casts Occasional 05/25/19 00:30: WBC 17.9 H, RBC 3.74 L, Hgb 12.1 L, Hct 43.6, MCV 116.8 H, MCH 32.5 H, MCHC 27.8 L, RDW 14.2, Plt Count 496 H, MPV 9.6, Neut % (Auto) 80.7 H, Lymph % (Auto) 13.5, [place] % (Auto) 5.2, Eos % (Auto) 0.3, Baso % (Auto) 0.3, Neut # (Auto) 14.5 H, Lymph # (Auto) 2.4, [place] # (Auto) 0.9, Eos # (Auto) 0.1, Baso # (Auto) 0.1, Total Counted 100, Neutrophils % (Manual) 97 H, Lymphocytes % (Manual) 3 L, Platelet Estimate Normal, Macrocytosis 2+, Ovalocytes 1+ 05/25/19 00:30: Sodium 129 L, Potassium 6.7 H*, Chloride 86 L, Carbon Dioxide 5 L*, Anion Gap 44.7 H, BUN 39 H, Creatinine 2.46 H, Estimated Creat Clear 31, Estimated GFR 27 L, Est GFR ( Amer) 33 L, Glucose 717 H*, Calcium 9.2, Total Bilirubin 0.5, AST 11 L, ALT 27, Alkaline Phosphatase 105, Lactate Dehydrogenase 162, Total Protein 8.0, Albumin 3.9, Globulin 4.1 H, Albumin/Globulin Ratio 1.0 L 05/25/19 00:30: B-Natriuretic Peptide 100 05/25/19 00:30: Influenza Type A Ag Negative, Influenza Type B Ag Negative 05/25/19 00:31: Acetone Level Small 05/25/19 00:31: Lactate 3.0 H 05/25/19 00:42: Specimen Source Right radial, O2 % 2 lpm nc, ABG pH 6.96 L*, ABG pCO2 13.1 L, ABG pO2 120.2 H, ABG HCO3 2.9 L, ABG Total CO2 3.3 L, ABG O2 Saturation 97, ABG Base Excess -29.0 L, Dominik Test Patient unable 05/25/19 02:00: Sodium 130 L, Potassium 6.7 H*, Chloride 87 L, Carbon Dioxide 6 L* D, Anion Gap 43.7 H, BUN 39 H, Creatinine 2.54 H, Estimated Creat Clear 30, Estimated GFR 26 L, Est GFR ( Amer) 32 L, Glucose 755 H*, Calcium 9.0 05/25/19 03:25: Sodium 132 L, Potassium 6.3 H*, Chloride 91 L, Carbon Dioxide 6 L*, Anion Gap 41.3 H, BUN 43 H, Creatinine 2.61 H, Estimated Creat Clear 29, Estimated GFR 25 L, Est GFR ( Amer) 31 L, Glucose 691 H*, Calcium 8.5 05/25/19 03:32: VBG pH 6.88 L, VBG pCO2 25.9 L, VBG pO2 64.0 H, VBG HCO3 4.7 L, VBG Total CO2 5.5 L, VBG O2 Saturation 83.6 H, VBG Base Excess -28.5 L Result diagrams: 05/25/19 00:30 05/25/19 03:25 Orders (Tests/Meds): ED MEDICATIONS Generic Name Dose Route Start Last Admin Trade Name Freq PRN Reason Stop Dose Admin Aspirin 81 mg 05/25/19 09:00 Aspirin 81mg Enteric Coated Tablet PO 06/24/19 08:59 DAILY [facility] Carvedilol 6.25 mg 05/25/19 09:00 Coreg 6.25mg Tablet PO 06/24/19 08:59 BID [facility] Clopidogrel Bisulfate 75 mg 05/25/19 09:00 Plavix 75mg Tablet PO 06/24/19 08:59 DAILY [facility] Dextrose 50 ml 05/25/19 05:25 Dextrose 50% 50ml Syringe IVP 06/24/19 02:47 ONCE PRN hypoglycemia Cefepime HCl 2 gm/ Sodium 100 mls @ 200 mls/hr 05/25/19 10:30 Chloride IV 06/08/19 02:29 Q8H [facility] Protocol Sodium Chloride 1,000 mls @ 150 mls/hr 05/25/19 05:25 Sod Chlor 0.9% 1000ml Bag IV 06/24/19 01:44 .Q6H40M [facility] Insulin Human Regular 100 unit 101 mls @ 6.872 mls/hr 05/25/19 05:25 / Sodium Chloride IV 06/24/19 01:44 .[id number] [facility] Protocol 0.1 UNITS/KG/HR Vancomycin HCl 1,750 mg/ 250 mls @ 125 mls/hr 05/26/19 02:30 Sodium Chloride IV 06/08/19 02:29 Q24H [facility] Discontinued Medications Generic Name Dose Route Start Last Admin Trade Name Freq PRN Reason Stop Dose Admin Dextrose 50 ml 05/25/19 01:44 05/25/19 02:39 Dextrose 50% 50ml Syringe IV 05/25/19 01:45 Not Given ONCE ONE Dextrose 50 ml 05/25/19 02:48 Dextrose 50% 50ml Syringe IVP 06/24/19 02:47 ONCE PRN hypoglycemia Sodium Chloride 1,000 mls @ 150 mls/hr 05/25/19 01:45 05/25/19 05:32 Sod Chlor 0.9% 1000ml Bag IV 06/24/19 01:44 Not Given .Q6H40M [facility] Insulin Human Regular 100 unit 101 mls @ 6.872 mls/hr 05/25/19 01:45 05/25/19 01:58 / Sodium Chloride IV 06/24/19 01:44 6.872 mls/hr .[id number] [facility] Administration Protocol 0.1 UNITS/KG/HR Cefepime HCl 2 gm/ Sodium 100 mls @ 200 mls/hr 05/25/19 02:30 05/25/19 02:44 Chloride IV 06/08/19 02:29 200 mls/hr Q8H [facility] Administration Protocol Vancomycin HCl 1,750 mg/ 250 mls @ 125 mls/hr 05/25/19 02:30 Sodium Chloride IV 06/08/19 02:29 Q24H [facility] Sodium Chloride 1,000 mls @ 999 mls/hr 05/25/19 02:45 05/25/19 02:35 Sod Chlor 0.9% 1000ml Bag IV 05/25/19 03:45 999 mls/hr .Q1H1M [facility] Administration Lactated Ringer's 1,000 mls @ 999 mls/hr 05/25/19 04:00 05/25/19 03:56 Lactated Ringer's 1000 Ml Bag IV 05/25/19 05:00 999 mls/hr .Q1H1M [facility] Administration Ketamine HCl 15 mg 05/25/19 01:38 01/03/20 02:09 Ketamine 500mg/10ml Vial IV 05/25/19 01:39 15 mg ONCE ONE Administration ORDERS Category Date Time Status XR chest portable Stat Exams 05/25/19 00:43 Taken Basic Metabolic Panel Q12H Lab 05/26/19 06:00 Ordered Basic Metabolic Panel Q12H Lab 05/26/19 18:00 Ordered Basic Metabolic Panel Q12H Lab 05/27/19 06:00 Ordered Basic Metabolic Panel Q4H Lab 05/25/19 05:45 Ordered Basic Metabolic Panel Q4H Lab 05/25/19 09:45 Ordered Basic Metabolic Panel Q4H Lab 05/25/19 13:45 Ordered Blood Culture Stat Micro 05/25/19 00:30 Received Medical Decision Narrative: On initial presentation patient is hypoxic, tachypneic, and in acute distress. On auscultation patient had a wheezes bilaterally, as well as coarse breath sounds. Initial concern was for COPD exacerbation, with underlying pneumonia. Patient's vital signs definite for tachycardia, hypoxia, and hypothermia. Patient's presentation concerning for both DKA, and sepsis. Patient immediately placed on BiPAP due to his work of breathing. CBC, CMP, VBG, chest x-ray, urinalysis, influenza, and EKG. Given IV fluid bolus. Patient's VBG returns and is significant for extreme acidemia with patient having a pH of 6.9. Patient also noted to have a PCO2 of 13.1 pointing towards a likely metabolic acidosis. Likely in DKA. The patient's labs returned and show him to have a significantly elevated anion gap as well as a potassium of 6.9. Patient immediately started on DKA protocol. Patient started on insulin infusion 0.1 units/kg/h. Patient also given IV fluid bolus. 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 His chest x-ray returns and is concerning for potential pneumonia on the right side, given this and concern for sepsis patient started on cefepime, and vancomycin in the emergency department. Patient given second IV fluid bolus Repeat VBG, BMP performed showing improvement in patient's anion gap, though little relative movement and patient's pH. Patient's mental status has improved slightly, will continue to monitor. Patient given third IV fluid bolus Repeat VBG, and BMP performed second time at 4 hours into patient stay. Patient now has moved from a pH of 6.88, to 7.02, and anion gap is now 41 instead of 44. Given this Dr. Kirkpatrick consulted and is agreed to admit the patient for evaluation and treatment of his diabetic ketoacidosis, and likely underlying pneumonia. General Adult HPI - General Chief complaint: Shortness of Breath/Dyspnea Stated complaint: resp failure, hyperglycemia Time Seen by Provider: 05/25/19 00:42 - History of Present Illness HPI narrative: Patient is a 58-year-old male with a past medical history significant for in sulin-dependent diabetes, who presented to the emergency department for evaluation of altered mental status, increased work of breathing hyperglycemia. Patient was brought in by EMS. Patient states that he has been sick for the last 2 to 3 days. Patient denies chest pain, abdominal pain but does endorse shortness of breath. Patient is in acute distress, and thus was unable to obtain more history. - Related Data Home Medications Medication Instructions Recorded Confirmed nitroglycerin 0.4 mg sublingual 0.4 mg SUBLINGUAL Q5M PRN 08/08/17 05/25/19 tablet Blood Sugar Diagnostic [Premier See Dose Instructions 1000units 01/11/19 05/25/19 Test Strip] .ROUTE .MEDSUPPLY Clopidogrel Bisulfate [Plavix 75mg 75 mg PO DAILY 01/11/19 05/25/19 Tab] Syringe-Needle,Insulin,0.5 ml See Dose Instructions unit .ROUTE 01/11/19 05/25/19 [Litetouch Insulin Syringe] .MEDSUPPLY Simvastatin 5 mg PO HS 03/07/19 05/25/19 Pantoprazole Sodium [Protonix 40mg See Rx Instructions .ROUTE .COMPLEX 05/25/19 05/25/19 tablet] Previous Rx's Medication Instructions Recorded carvedilol 6.25 mg tablet 6.25 mg PO BID #60 tab 01/03/19 gabapentin 400 mg capsule 400 mg PO BID #60 cap 02/01/19 Insulin Lispro Protamin/Lispro 0 unit SQ DIRECTED #0 03/08/19 [Humalog Mix 75/25 100 Units/mL 10mL Vial] aspirin 81 mg tablet,delayed 81 mg PO DAILY #90 tab 03/27/19 release lisinopril 2.5 mg tablet 2.5 mg PO DAILY #90 tab 03/27/19 furosemide 20 mg tablet 20 mg PO DAILY #90 tab 04/25/19 insulin glargine 100 unit/mL (3 8 unit SQ HS 30 Days #1 insuln.pen 05/02/19 mL) subcutaneous pen metformin 1,000 mg tablet 1,000 mg PO BID 90 Days #180 tab 05/14/19 Allergies Allergy/AdvReac Type Severity Reaction Status Date / Time Penicillins [PENICILLINS] Allergy Unknown Verified 03/07/19 02:36 [facility] [place] History - Hepatitis A Screen Attestation statement:: This patient has been screened for Hepatitis A risk factors. I have reviewed the patient's past medical history: Yes Medical History: Reports:: Coronary Artery Disease, Diabetes Mellitus Type 1, Hepatitis, Hyperlipidemia, Hypertension, Myocardial Infarction Denies:: Cancer, Diabetes Mellitus Type 2, Internal Pacemaker, MRSA, Pulmonary Embolism, Seizures, Transient Ischemic Attacks (TIA) Other Medical History: Reports: Other Laterality Cases: Left: Other Other Surgeries: Yes: Cardiac Catheterization, Colonoscopy, Coronary Stent, Splenectomy, Other. No: Pacemaker Amputation: No Fractures: Yes Comment: Patient has 3 heart stents.facial bone surgery with plates,left leg fx,rods and screws placed - Social History Smoking Status: Current every day smoker Tobacco Type: cigarettes # Packs/Day (cigarettes): 1 #Yrs smoked (if former smoker): 50 Alcohol Intake: current Alcohol Intake Frequency:: 0-2 drinks per day Substance Use Type: denies use Occupational Status: employed Housing: house Household Members: significant other Family Hx:: Coronary Artery Disease, Diabetes ROS Obtained: Yes unobtainable due to mental status Physical Exam - General General appearance: in distress - Head Head exam: atraumatic, normocephalic - Chest Chest inspection: Present: other (Tachypnic) - Respiratory Respiratory exam: Present: accessory muscle use, prolonged expiratory phase - Cardiovascular Cardiovascular exam: Present: normal rhythm, tachycardia - Abdominal Exam Abdominal exam: Present: soft. Absent: distention, tenderness - Neurological Exam Neurological exam: Present: alert, other (confused)
[2019-05-25 00:47] LABS: ABG PH 6.96 mmol/L (7.35-7.45)
[2019-05-25 00:48] LABS: ABG PCO2 13.1 mmhg (35.0-45.0)
[2019-05-25 01:10] LABS: Microscopic, Urine URINE MICROSCOPIC (MICROSCOPIC)
[2019-05-25 01:14] LABS: Basophils # 0.1 K/mm3 (0-0.2); Basophils % 0.3 % (0.1-2.0); Eosinophils # 0.1 K/mm3 (0.0-0.4); Eosinophils % 0.3 % (0.1-12.0); Hematocrit 43.6 % (42.0-52.0); Hemoglobin 12.1 g/dL (14.1-18.0); Lymphocytes # 2.4 K/mm3 (0.7-4.5); Lymphocytes % 13.5 % (10-50); Mean Corpuscular HGB Conc 27.8 g/dL (31.8-35.4); Mean Corpuscular Volume 116.8 fl (80-94); Mean Platelet Volume 9.6 fl (7.4-10.4); Monocytes # 0.9 K/mm3 (0.1-1.0); Monocytes % 5.2 % (1.7-9.3); Neutrophils # 14.5 K/mm3 (1.8-7.8); Neutrophils % 80.7 % (37.0-80.0); Platelet Count 496 K/mm3 (142-424); Red Blood Count 3.74 M/mm3 (4.60-6.20); Red Cell Distribution Width 14.2 % (11.5-17.5); White Blood Count 17.9 K/mm3 (4.8-10.8)
[2019-05-25 01:22] LABS: Appearance,Urine CLEAR (Clear); Blood, Urine 1+ (Negative); Color,Urine YELLOW (Yellow); Glucose,Urine (UA) 2+ (Negative); Ketones,Urine 1+ (Negative); Leukocyte Esterase,Urine Negative (Negative); PH,Urine 5.5 (5.0-8.5); Protein,Urine 1+ (Negative); Specific Gravity, Urine >= 1.030 (1.005-1.030); Urobilinogen,Urine 0.2 EU/dl (0.2)
[2019-05-25 01:26] LABS: Bilirubin,Urine Negative (Negative)
[2019-05-25 01:29] LABS: Bacteria,Urine Trace /lpf; Fine Granular Casts,Urine Occasional #/lpf (0); Squamous Epithelial Cell,Urine Occasional #/hpf (0-5); WBC,Urine Occasional #/hpf (0-3)
[2019-05-25 01:34] LABS: Albumin Level 3.9 gm/dL (3.4-5.0); Bilirubin,Total 0.5 mg/dL (0.2-1.0); Calcium 9.2 mg/dL (8.5-10.1); Globulin 4.1 gm/dl (1.3-3.2)
[2019-05-25 01:35] LABS: Anion Gap 44.7 mEq/L (5-15)
[2019-05-25 02:22] LABS: Anion Gap 43.7 mEq/L (5-15)
[2019-05-25 02:54] LABS: Lymphocytes % 3 % (10-50); Macrocytosis 2+; Neutrophils % 97 % (42-76); Total Cells Counted 100
[2019-05-25 02:55] LABS: Ovalocytes 1+
[2019-05-25 03:40] LABS: VBG Base Excess -28.5 mmol/L (-2.4-2.3); VBG HCO3 4.7 mmol/L (23-30); VBG Oxygen Saturation 83.6 % (50-70); VBG PCO2 25.9 mmol/L (35-51); VBG Total CO2 5.5 mmol/L (23-27)
[2019-05-25 03:45] LABS: VBG PH 6.88 mmol/L (7.31-7.41)
[2019-05-25 04:13] LABS: Anion Gap 41.3 mEq/L (5-15); Calcium 8.5 mg/dL (8.5-10.1)
[2019-05-25 06:18] LABS: VBG Base Excess -25.7 mmol/L (-2.4-2.3); VBG HCO3 5.3 mmol/L (23-30); VBG PCO2 21.1 mmol/L (35-51); VBG PH 7.02 mmol/L (7.31-7.41); VBG PO2 68.6 mmol/L (28-40)
[2019-05-25 06:19] LABS: VBG Oxygen Saturation 89.4 % (50-70)
[2019-05-25 07:07] LABS: Calcium 8.3 mg/dL (8.5-10.1)
--- NOTE | 2019-05-25 08:07 | Electrocardiograph Report ---
APPROVED REPORT Exam: Resting ECG HR:109 bpm ECG Measurements Heart Rate 109 AXES VT 168 P 78 QRSd 96 QRS -46 QT 352 T60 QTc 474 <Conclusion> Sinus tachycardia Right atrial enlargement Left anterior fascicular block Inferior infarct, age undetermined Possible Anterior infarct, age undetermined Abnormal ECG Electronically signed by : Blake Wick, 05/25/2019 08:07:04
--- NOTE | 2019-05-25 08:10 | Pharmacy Consult Notes ---
[facility] Pharmacy VTE Monitoring - Patient Demographics Admission date: 05/25/19 Report Date: 05/25/19 Time: 08:10 Allergies/Adverse Reactions: Patient Allergies Penicillins [PENICILLINS] Allergy (Unknown, Verified 03/07/19 02:36) Height: 1.83 m Weight: 59.506 kg Patient Problems: Current Active Problems Pneumonia (Acute) DKA, type 1 (Acute) - VTE Risk Labs: VTE Related Lab Results Hgb 12.1 g/dL (14.1-18.0) L 05/25/19 00:30 Hct 43.6 % (42.0-52.0) 05/25/19 00:30 Plt Count 496 K/mm3 (142-424) H 05/25/19 00:30 BUN 41 mg/dL (7-18) H 05/25/19 06:48 Creatinine 2.25 mg/dL (0.70-1.30) H 05/25/19 06:48 Estimated Creat Clear 30 mL/min (50-200) 05/25/19 06:48 Clinical Trial Participant: No - Prophylaxis VTE Prophylaxis Ordered?: Yes Types of VTE Prophylaxis: TEDS Knee High Location of Applied Device: Bilateral Lower Extremeties
--- NOTE | 2019-05-25 08:27 | Pharmacy Consult Notes ---
- Pharmacy Consult Date: 05/25/19 Time: 08:26 Referring provider: DR. THAO Reason for Consult:: VANCOMYCIN DOSING Allergies and ADEs:: Allergies Allergy/AdvReac Type Severity Reaction Status Date / Time Penicillins [PENICILLINS] Allergy Unknown Verified 03/07/19 02:36 Home Medications:: Home Medications Medication Instructions Recorded Confirmed Type nitroglycerin 0.4 mg sublingual 0.4 mg SUBLINGUAL Q5M PRN 08/08/17 05/25/19 History tablet carvedilol 6.25 mg tablet 6.25 mg PO BID #60 tab 01/03/19 05/25/19 Rx Blood Sugar Diagnostic [Premier See Dose Instructions 1000units 01/11/19 0 05/25/19 History Test Strip] .ROUTE .MEDSUPPLY Clopidogrel Bisulfate [Plavix 75mg 75 mg PO DAILY 01/11/19 05/25/19 History Tab] Syringe-Needle,Insulin,0.5 ml See Dose Instructions unit .ROUTE 01/11/19 05/25/19 History [Litetouch Insulin Syringe] .MEDSUPPLY gabapentin 400 mg capsule 400 mg PO BID #60 cap 02/01/19 05/25/19 Rx Simvastatin 5 mg PO HS 03/07/19 05/25/19 History Insulin Lispro Protamin/Lispro 0 unit SQ DIRECTED #0 03/08/19 05/25/19 Rx [Humalog Mix 75/25 100 Units/mL 10mL Vial] aspirin 81 mg tablet,delayed 81 mg PO DAILY #90 tab 03/27/19 05/25/19 Rx release lisinopril 2.5 mg tablet 2.5 mg PO DAILY #90 tab 03/27/19 05/25/19 Rx furosemide 20 mg tablet 20 mg PO DAILY #90 tab 04/25/19 05/25/19 Rx insulin glargine 100 unit/mL (3 8 unit SQ HS 30 Days #1 insuln.pen 05/02/19 05/25/19 Rx mL) subcutaneous pen metformin 1,000 mg tablet 1,000 mg PO BID 90 Days #180 tab 05/14/19 05/25/19 Rx Pantoprazole Sodium [Protonix 40mg See Rx Instructions .ROUTE .COMPLEX 05/25/19 05/25/19 History tablet] Height: 1.83 m Weight: 59.506 kg Laboratory Results:: Laboratory Results - last 24 hr 05/25/19 00:30: Urine Color Yellow, Urine Appearance Clear, Urine pH 5.5, Ur Specific [place] >= 1.030, Urine Protein 1+, Urine Glucose (UA) 2+, Urine [place] es 1+, Urine Blood 1+, Urine Nitrate Negative, Urine Bilirubin Negative, Urine Urobilinogen 0.2, Ur Leukocyte Esterase Negative, Urine RBC 3-5, Urine WBC Occasional, Ur Squamous Epith Cells Occasional, Urine Bacteria Trace, Hyaline Casts 3-5, Fine Granular Casts Occasional 05/25/19 00:30: WBC 17.9 H, RBC 3.74 L, Hgb 12.1 L, Hct 43.6, MCV 116.8 H, MCH 32.5 H, MCHC 27.8 L, RDW 14.2, Plt Count 496 H, MPV 9.6, Neut % (Auto) 80.7 H, Lymph % (Auto) 13.5, [place] % (Auto) 5.2, Eos % (Auto) 0.3, Baso % (Auto) 0.3, Neut # (Auto) 14.5 H, Lymph # (Auto) 2.4, [place] # (Auto) 0.9, Eos # (Auto) 0.1, Baso # (Auto) 0.1, Total Counted 100, Neutrophils % (Manual) 97 H, Lymphocytes % (Manual) 3 L, Platelet Estimate Normal, Macrocytosis 2+, Ovalocytes 1+ 05/25/19 00:30: Sodium 129 L, Potassium 6.7 H*, Chloride 86 L, Carbon Dioxide 5 L*, Anion Gap 44.7 H, BUN 39 H, Creatinine 2.46 H, Estimated Creat Clear 31, Estimated GFR 27 L, Est GFR ( Amer) 33 L, Glucose 717 H*, Calcium 9.2, Total Bilirubin 0.5, AST 11 L, ALT 27, Alkaline Phosphatase 105, Lactate De hydrogenase 162, Total Protein 8.0, Albumin 3.9, Globulin 4.1 H, Albumin/Globulin Ratio 1.0 L 05/25/19 00:30: B-Natriuretic Peptide 100 05/25/19 00:30: Influenza Type A Ag Negative, Influenza Type B Ag Negative 05/25/19 00:31: Acetone Level Small 05/25/19 00:31: Lactate 3.0 H 05/25/19 00:42: Specimen Source Right radial, O2 % 2 lpm nc, ABG pH 6.96 L*, ABG pCO2 13.1 L, ABG pO2 120.2 H, ABG HCO3 2.9 L, ABG Total CO2 3.3 L, ABG O2 Saturation 97, ABG Base Excess -29.0 L, Dominik Test Patient unable 05/25/19 02:00: Sodium 130 L, Potassium 6.7 H*, Chloride 87 L, Carbon Dioxide 6 L* D, Anion Gap 43.7 H, BUN 39 H, Creatinine 2.54 H, Estimated Creat Clear 30, Estimated GFR 26 L, Est GFR ( Amer) 32 L, Glucose 755 H*, Calcium 9.0 05/25/19 03:25: Sodium 132 L, Potassium 6.3 H*, Chloride 91 L, Carbon Dioxide 6 L*, Anion Gap 41.3 H, BUN 43 H, Creatinine 2.61 H, Estimated Creat Clear 29, Estimated GFR 25 L, Est GFR ( Amer) 31 L, Glucose 691 H*, Calcium 8.5 05/25/19 03:32: VBG pH 6.88 L, VBG pCO2 25.9 L, VBG pO2 64.0 H, VBG HCO3 4.7 L, VBG Total CO2 5.5 L, VBG O2 Saturation 83.6 H, VBG Base Excess -28.5 L 05/25/19 04:50: Lactate 2.7 H 05/25/19 05:03: VBG pH 7.02 L, VBG pCO2 21.1 L, VBG pO2 68.6 H, VBG HCO3 5.3 L, VBG Total CO2 6.0 L, VBG O2 Saturation 89.4 H, VBG Base Excess -25.7 L 05/25/19 06:24: POC Glucose 451 H* 05/25/19 06:48: Sodium 137, Potassium 5.0 D, Chloride 98, Carbon Dioxide 10 L D , Anion Gap 34.0 H, BUN 41 H, Creatinine 2.25 H, Estimated Creat Clear 30, Estimated GFR 30 L, Est GFR ( Amer) 36 L, Glucose 417 H* D, Calcium 8.3 L Medical History: Reports:: Congenital Heart Disease, Coronary Artery Disease, Diabetes Mellitus Type 1, Hepatitis, Hyperlipidemia, Hypertension, Myocardial Infarction Denies:: Cancer, Diabetes Mellitus Type 2, Internal Pacemaker, MRSA, Pulmonary Embolism, Seizures, Transient Ischemic Attacks (TIA) Assessment and Plan - Assessment and plan all Dx Assessment and Plan for all problems:: BASED ON PATIENT FACTORS, RECOMMEND VANCOMYCIN 1,000MG IV EVERY 36 HOURS TO BEGIN 05/26/19 AT 1900. PATIENT HAS ALREADY RECEIVED ONE TIME DOSE OF 1,250MG AT THE TIME OF DOCUMENTATION. PHARMACY WILL CONTINUE TO MONITOR AND WILL ADJUST DOSE APPROPRIATE. -THIAGO KARIMI, [facility]
--- NOTE | 2019-05-25 08:55 | History & Physical Report ---
*Admission Date: 05/25/19 *Chief complaint: hyperglycemia, DKA *History of present illness: Mr. Robison is a 59-year-old gentleman with history of insulin-dependent diabetes, additional history per note below. He presented to the ER due to significant abdominal pain, fatigue, weakness worsening over the past 5 days. States he is felt significantly nauseous, poor p.o. intake. Has stopped taking his insulin for the past 3 days because he felt so bad. Continued to have worsening progression of his symptoms leading to his being brought to the ER. On admission he was found to have high anion gap metabolic acidosis, hyperglycemia, and significant dehydration with JENS. Admitted to medicine for treatment of severe DKA. Initiated on insulin drip and DKA protocol. Showed improvement in pH after initiation of treatment and was admitted to stepdown unit for further management. This morning he continues to complain about feeling dry, wanting something to drink. States he still has some mild nausea and abdominal pain but denies any chest pain or shortness of breath. Appears ill but interactive and responsive on exam. Alert and oriented to person place and situation. States compliance with insulin but then reports not having taken it in 3 days. Elevated leukocytosis and meeting SIRS criteria however no clear source of infection. [facility] History I have reviewed the patient's past medical history: Yes Medical History: Reports:: Congenital Heart Disease, Coronary Artery Disease, Diabetes Mellitus Type 1, Hepatitis, Hyperlipidemia, Hypertension, Myocardial Infarction Denies:: Cancer, Diabetes Mellitus Type 2, Internal Pacemaker, MRSA, Pulmonary Embolism, Seizures, Transient Ischemic Attacks (TIA) *Have you ever received a pneumonia vaccine?: No *Have you received a flu vaccine this season?: Yes Other Medical History: Reports: Other Laterality Cases: Left: Other Other Surgeries: Yes: Cardiac Catheterization, Colonoscopy, Coronary Stent, Splenectomy, Other (splenectomy). No: Pacemaker Amputation: No Fractures: Yes - *Social History Smoking Status: Current every day smoker Tobacco Type: cigarettes # Packs/Day (cigarettes): 2 #Yrs smoked (if former smoker): 50 Alcohol Intake: never Alcohol Intake Frequency:: 0-2 drinks per day Substance Use Type: denies use *Occupational Status:: employed Housing: house Household Members: significant other *Travel in the last 8 weeks: None Family Hx:: Coronary Artery Disease, Diabetes Review of Systems - Review of Systems Review of systems:: pertinent systems reviewed and negative unless documented below Meds Home Medications Medication Instructions Recorded Confirmed Type nitroglycerin 0.4 mg sublingual 0.4 mg SUBLINGUAL Q5M PRN 08/08/17 05/25/19 History tablet carvedilol 6.25 mg tablet 6.25 mg PO BID #60 tab 01/03/19 05/25/19 Rx Blood Sugar Diagnostic [Premier See Dose Instructions 1000units 01/11/19 05/25/19 History Test Strip] .ROUTE .MEDSUPPLY Clopidogrel Bisulfate [Plavix 75mg 75 mg PO DAILY 01/11/19 05/25/19 History Tab] Syringe-Needle,Insulin,0.5 ml See Dose Instructions unit .ROUTE 01/11/19 05/25/19 History [Litetouch Insulin Syringe] .MEDSUPPLY gabapentin 400 mg capsule 400 mg PO BID #60 cap 02/01/19 05/25/19 Rx Simvastatin 5 mg PO HS 03/07/19 05/25/19 History Insulin Lispro Protamin/Lispro 0 unit SQ DIRECTED #0 03/08/19 05/25/19 Rx [Humalog Mix 75/25 100 Units/mL 10mL Vial] aspirin 81 mg tablet,delayed 81 mg PO DAILY #90 tab 03/27/19 05/25/19 Rx release lisinopril 2.5 mg tablet 2.5 mg PO DAILY #90 tab 03/27/19 05/25/19 Rx furosemide 20 mg tablet 20 mg PO DAILY #90 tab 04/25/19 05/25/19 Rx insulin glargine 100 unit/mL (3 8 unit SQ HS 30 Days #1 insuln.pen 05/02/19 05/25/19 Rx mL) subcutaneous pen metformin 1,000 mg tablet 1,000 mg PO BID 90 Days #180 tab 05/14/19 05/25/19 Rx Pantoprazole Sodium [Protonix 40mg 40 mg PO DAILY 05/25/19 05/25/19 History tablet] Allergies Allergy/AdvReac Type Severity Reaction Status Date / Time Penicillins [PENICILLINS] Allergy Unknown Verified 03/07/19 02:36 Exam Vital signs and Labs for Last 24 Hours: Temp Pulse Resp BP Pulse Ox 97.6 F 98 H 22 106/65 L 100 05/25/19 08:00 05/25/19 08:00 05/25/19 08:00 05/25/19 08:00 05/25/19 08:00 Laboratory Results - last 24 hr 05/25/19 00:30: Urine Color Yellow, Urine Appearance Clear, Urine pH 5.5, Ur Specific [place] >= 1.030, Urine Protein 1+, Urine Glucose (UA) 2+, Urine Ketones 1+, Urine Blood 1+, Urine Nitrate Negative, Urine Bilirubin Negative, Urine Urobilinogen 0.2, Ur Leukocyte Esterase Negative, Urine RBC 3-5, Urine WBC Occasional, Ur Squamous Epith Cells Occasional, Urine Bacteria Trace, Hyaline Casts 3-5, Fine Granular Casts Occasional 05/25/19 00:30: WBC 17.9 H, RBC 3.74 L, Hgb 12.1 L, Hct 43.6, MCV 116.8 H, MCH 32.5 H, MCHC 27.8 L, RDW 14.2, Plt Count 496 H, MPV 9.6, Neut % (Auto) 80.7 H, Lymph % (Auto) 13.5, [place] % (Auto) 5.2, Eos % (Auto) 0.3, Baso % (Auto) 0.3, Neut # (Auto) 14.5 H, Lymph # (Auto) 2.4, [place] # (Auto) 0.9, Eos # (Auto) 0.1, Baso # (Auto) 0.1, Total Counted 100, Neutrophils % (Manual) 97 H, Lymphocytes % (Manual) 3 L, Platelet Estimate Normal, Macrocytosis 2+, Ovalocytes 1+ 05/25/19 00:30: Sodium 129 L, Potassium 6.7 H*, Chloride 86 L, Carbon Dioxide 5 L*, Anion Gap 44.7 H, BUN 39 H, Creatinine 2.46 H, Estimated Creat Clear 31, Estimated GFR 27 L, Est GFR ( Amer) 33 L, Glucose 717 H*, Calcium 9.2, Total Bilirubin 0.5, AST 11 L, ALT 27, Alkaline Phosphatase 105, Lactate Dehydrogenase 162, Total Protein 8.0, Albumin 3.9, Globulin 4.1 H, Albumin/Globulin Ratio 1.0 L 05/25/19 00:30: B-Natriuretic Peptide 100 05/25/19 00:30: Influenza Type A Ag Negative, Influenza Type B Ag Negative 05/25/19 00:31: Acetone Level Small 05/25/19 00:31: Lactate 3.0 H 05/25/19 00:42: Specimen Source Right radial, O2 % 2 lpm nc, ABG pH 6.96 L*, ABG pCO2 13.1 L, ABG pO2 120.2 H, ABG HCO3 2.9 L, ABG Total CO2 3.3 L, ABG O2 Saturation 97, ABG Base Excess -29.0 L, Dominik Test Patient unable 05/25/19 02:00: Sodium 130 L, Potassium 6.7 H*, Chloride 87 L, Carbon Dioxide 6 L* D, Anion Gap 43.7 H, BUN 39 H, Creatinine 2.54 H, Estimated Creat Clear 30, Estimated GFR 26 L, Est GFR ( Amer) 32 L, Glucose 755 H*, Calcium 9.0 05/25/19 03:25: Sodium 132 L, Potassium 6.3 H*, Chloride 91 L, Carbon Dioxide 6 L*, Anion Gap 41.3 H, BUN 43 H, Creatinine 2.61 H, Estimated Creat Clear 29, Estimated GFR 25 L, Est GFR ( Amer) 31 L, Glucose 691 H*, Calcium 8.5 05/25/19 03:32: VBG pH 6.88 L, VBG pCO2 25.9 L, VBG pO2 64.0 H, VBG HCO3 4.7 L, VBG Total CO2 5.5 L, VBG O2 Saturation 83.6 H, VBG Base Excess -28.5 L 05/25/19 04:50: Lactate 2.7 H 05/25/19 05:03: VBG pH 7.02 L, VBG pCO2 21.1 L, VBG pO2 68.6 H, VBG HCO3 5.3 L, VBG Total CO2 6.0 L, VBG O2 Saturation 89.4 H, VBG Base Excess -25.7 L 05/25/19 06:24: POC Glucose 451 H* 05/25/19 06:48: Sodium 137, Potassium 5.0 D, Chloride 98, Carbon Dioxide 10 L D , Anion Gap 34.0 H, BUN 41 H, Creatinine 2.25 H, Estimated Creat Clear 30, Estimated GFR 30 L, Est GFR ( Amer) 36 L, Glucose 417 H* D, Calcium 8.3 L 05/25/19 08:00: Lactate 2.1 H 05/25/19 08:33: POC Glucose 350 H* I & O for Last 24 hours: Intake & Output 05/22/19 05/23/19 05/24/19 05/25/19 23:59 23:59 23:59 23:59 Intake Total 2450 / 2450 Output Total 1000 / 1000 Balance 1450 / 1450 Weight 59.506 kg - Constitutional mild distress, cachectic, chronically ill appearing - *Routine HEENT Exam Head: Present: normocephalic Eye: Present: EOMI, PERRL ENT: Present: mucous membranes dry. Absent: dentition normal - *Routine Neck Exam Present: supple. Absent: lymphadenopathy - *Routine Respiratory Exam Present: CTA bilaterally - *Routine Cardiovascular Exam Present: tachycardia. Absent: murmur - *Routine Abdominal Exam Present: soft, normoactive bowel sounds, tenderness (diffuse non focal) - *Routine Extremities Exam Absent: cyanosis, clubbing, edema - *Routine Skin Exam Present: warm. Absent: rash - *Routine Neurological Exam Present: alert, oriented X3. Absent: altered mental status Assessment and Plan (1) Hyponatremia Current visit: Yes Status: Acute Category: Medical Code(s): E87.1 - Hypo- osmolality and hyponatremia Present on presentation however presumed pseudohyponatremia given hyperglycemia. Corrected sodium within normal range. (2) DKA, type 1 Current visit: Yes Status: Acute Qualifiers: Diabetes mellitus complication detail: without coma Qualified Code(s): E10.10 - Type 1 diabetes mellitus with ketoacidosis without coma Category: Medical Code(s): E10.10 - Type 1 diabetes mellitus with ketoacidosis without coma DKA protocol. Continue drip until gap is closed. At that time will transition to basal bolus regimen. May have clear liquids to drink for now but no p.o. intake pending closure of gap. (3) COPD (chronic obstructive pulmonary disease) Current visit: No Status: Acute Qualifiers: COPD type: unspecified COPD Qualified Code(s): J44.9 - Chronic obstructive pulmonary disease, unspecified Category: Medical Code(s): J44.9 - Chronic obstructive pulmonary disease, unspecified Robert breathing treatments as needed. No wheeze on exam today. (4) Dehydration Current visit: No Status: Acute Category: Medical Code(s): E86.0 - Dehydration Fluid resuscitation per protocol and sepsis treatment. (5) Hyperkalemia Current visit: No Status: Acute Category: Medical Code(s): E87.5 - Hyper kalemia Suspect secondary to transcellular shifts given acid-base disturbance. Monitor for resolution with treatment for DKA. Will begin addition of potassium to fluids when potassium lower than 5. In the setting of DKA, patient is likely overall body deplete of potassium. Monitor closely with labs. No EKG abnormalities on presentation (6) Sepsis Current visit: No Status: Acute Qualifiers: Sepsis type: sepsis due to unspecified organism Sepsis acute organ dysfunction status: with acute organ dysfunction Severe sepsis acute organ dysfunction type: unspecified Category: Medical Code(s): A41.9 - Sepsis, unspecified organism Unclear source of infection however urine is abnormal and patient has significant abdominal symptoms, initiated on broad-spectrum antibiotics with cefepime and bank. Will de-escalate when appropriate. Additionally sepsis criteria could be met by DKA. If no clearly identifiable source of infection in the next 48 hours, will discontinue antibiotics at that time. Cultures pending (7) Hyperlipidemia Current visit: No Status: Chronic Qualifiers: Hyperlipidemia type: mixed hyperlipidemia Qualified Code(s): E78.2 - Mixed hyperlipidemia Category: Medical Code(s): E78.5 - Hyperlipidemia, unspecified Resume statin when appropriate, hold in the setting of Sirs and JENS (8) Hypertensive heart disease without heart failure Current visit: No Status: Chronic Category: Medical Code(s): I11.9 - Hypertensive heart disease without heart failure Continue home blood pressure medications when appropriate (9) Tobacco abuse Current visit: No Status: Chronic Category: Medical Code(s): Z72.0 - Tobacco use Nicotine replacement while inpatient. (10) JENS (acute kidney injury) Current visit: Yes Status: Acute Category: Medical Code(s): N17.9 - Acute kidney failure, unspecified Baseline creatinine normal approximately 0.8, anticipate improvement with rehydration, monitor with labs per protocol for DKA. Caution with nephrotoxic's. We will monitor urine output. (11) Stented coronary artery Current visit: No Status: Chronic Category: Surgical Code(s): Z95.5 - Presence of coronary angioplasty implant and graft Patient had stent placed last August 2018. Continue Plavix at this time. If has change in cardiac function, will have low threshold to consult cardiology. Resume goal-directed therapy when appropriate. - Assessment and plan all Dx Assessment and Plan for all problems:: 59-year-old gentleman with multiple comorbidities who presented with DKA. Continue DKA protocol with goal of gap closure today. Will transition to basal bolus regimen at that time. We will continue need inpatient management for some dose adjustment of his insulin prior to discharge home. Would like see patient tolerating good p.o. intake and have plan for either cessation or continuation of antibiotics prior to discharge. Patient's condition is serious, prognosis fair. Continues to require acute admission for serious metabolic disturbances and DKA.
[2019-05-25 10:20] LABS: Anion Gap 29.8 mEq/L (5-15); Calcium 8.4 mg/dL (8.5-10.1)
[2019-05-25 14:19] LABS: Anion Gap 15.3 mEq/L (5-15); Calcium 8.2 mg/dL (8.5-10.1)
[2019-05-25 14:21] LABS: Eosinophils # 0.1 K/mm3 (0.0-0.4); Eosinophils % 0.5 % (0.1-12.0); Lymphocytes # 0.7 K/mm3 (0.7-4.5); Lymphocytes % 6.1 % (10-50); Mean Corpuscular HGB Conc 31.9 g/dL (31.8-35.4); Mean Corpuscular Volume 100.6 fl (80-94); Mean Platelet Volume 8.1 fl (7.4-10.4); Monocytes # 0.6 K/mm3 (0.1-1.0); Monocytes % 5.7 % (1.7-9.3); Neutrophils # 9.3 K/mm3 (1.8-7.8); Neutrophils % 87.7 % (37.0-80.0); Platelet Count 388 K/mm3 (142-424); Red Blood Count 3.32 M/mm3 (4.60-6.20); Red Cell Distribution Width 14.5 % (11.5-17.5); White Blood Count 10.7 K/mm3 (4.8-10.8)
[2019-05-25 14:27] LABS: Hematocrit 33.2 % (42.0-52.0); Hemoglobin 10.8 g/dL (14.1-18.0)
[2019-05-25 17:34] LABS: Basophils % 0.2 % (0.1-2.0); Eosinophils # 0.1 K/mm3 (0.0-0.4); Eosinophils % 0.9 % (0.1-12.0); Lymphocytes # 1.1 K/mm3 (0.7-4.5); Lymphocytes % 9.7 % (10-50); Mean Corpuscular HGB Conc 31.5 g/dL (31.8-35.4); Mean Corpuscular Volume 103.4 fl (80-94); Mean Platelet Volume 8.7 fl (7.4-10.4); Monocytes # 0.8 K/mm3 (0.1-1.0); Monocytes % 7.5 % (1.7-9.3); Neutrophils # 8.8 K/mm3 (1.8-7.8); Neutrophils % 81.7 % (37.0-80.0); Platelet Count 340 K/mm3 (142-424); Red Blood Count 3.39 M/mm3 (4.60-6.20); Red Cell Distribution Width 14.9 % (11.5-17.5); White Blood Count 10.7 K/mm3 (4.8-10.8)
[2019-05-25 19:06] LABS: Lymphocytes % 6 % (10-50); Monocytes % 9 % (2-9); Neutrophils % 85 % (42-76); Total Cells Counted 100
[2019-05-25 19:08] LABS: Macrocytosis 1+
[2019-05-25 22:19] LABS: Anion Gap 15.7 mEq/L (5-15); Calcium 7.9 mg/dL (8.5-10.1)
[2019-05-26 07:00] LABS: Basophils % 0.2 % (0.1-2.0); Eosinophils # 0.2 K/mm3 (0.0-0.4); Eosinophils % 1.4 % (0.1-12.0); Hematocrit 31.2 % (42.0-52.0); Hemoglobin 10.2 g/dL (14.1-18.0); Lymphocytes # 1.6 K/mm3 (0.7-4.5); Lymphocytes % 13.9 % (10-50); Mean Corpuscular HGB Conc 32.6 g/dL (31.8-35.4); Mean Corpuscular Volume 99.9 fl (80-94); Mean Platelet Volume 8.2 fl (7.4-10.4); Monocytes # 0.5 K/mm3 (0.1-1.0); Monocytes % 4.1 % (1.7-9.3); Neutrophils # 9.2 K/mm3 (1.8-7.8); Neutrophils % 80.4 % (37.0-80.0); Platelet Count 297 K/mm3 (142-424); Red Blood Count 3.13 M/mm3 (4.60-6.20); Red Cell Distribution Width 15.1 % (11.5-17.5); White Blood Count 11.5 K/mm3 (4.8-10.8)
[2019-05-26 07:12] LABS: Anion Gap 12.4 mEq/L (5-15); Calcium 8.1 mg/dL (8.5-10.1)
--- NOTE | 2019-05-26 14:39 | Progress Note ---
Internal Medicine - PN: Subj *Date: 05/26/19 *Time: 09:45 Interval history: pt states he feels much better today asking for something to eat Exam Vital signs and Labs for Last 24 Hours: Temp Pulse Resp BP Pulse Ox 98.1 F 69 20 118/61 97 05/26/19 11:27 05/26/19 11:27 05/26/19 11:27 05/26/19 11:27 05/26/19 11:27 Laboratory Results - last 24 hr 05/25/19 13:50: Total Counted 100, Neutrophils % (Manual) 85 H, Lymphocytes % (Manual) 6 L, Monocytes % (Manual) 9, Platelet Estimate Normal, Poikilocytosis 1+, Macrocytosis 1+, Acanthocytes (Spur) 1+ 05/25/19 16:49: POC Glucose 83 05/25/19 17:28: WBC 10.7, RBC 3.39 L, Hgb 11.0 L, Hct 35.0 L, MCV 103.4 H, MCH 32.5 H, MCHC 31.5 L, RDW 14.9, Plt Count 340, MPV 8.7, Neut % (Auto) 81.7 H, Lymph % (Auto) 9.7 L, [place] % (Auto) 7.5, Eos % (Auto) 0.9, Baso % (Auto) 0.2, Neut # (Auto) 8.8 H, Lymph # (Auto) 1.1, [place] # (Auto) 0.8, Eos # (Auto) 0.1, Baso # (Auto) 0.0 05/25/19 17:28: Acetone Level None detected 05/25/19 18:00: POC Glucose 116 H 05/25/19 20:54: POC Glucose 196 H 05/25/19 22:06: Sodium 136, Potassium 4.7, Chloride 102, Carbon Dioxide 23, Anion Gap 15.7 H, BUN 32 H, Creatinine 1.19 D, Estimated Creat Clear 56, Estimated GFR 63, Est GFR ( Amer) 76 D, Glucose 210 H D, Calcium 7.9 L 05/26/19 05:14: POC Glucose 212 H 05/26/19 06:33: WBC 11.5 H, RBC 3.13 L, Hgb 10.2 L, Hct 31.2 L, MCV 99.9 H, MCH 32.5 H, MCHC 32.6, RDW 15.1, Plt Count 297, MPV 8.2, Neut % (Auto) 80.4 H, Lymph % (Auto) 13.9, [place] % (Auto) 4.1, Eos % (Auto) 1.4, Baso % (Auto) 0.2, Neut # (Auto) 9.2 H, Lymph # (Auto) 1.6, [place] # (Auto) 0.5, Eos # (Auto) 0.2, Baso # (Auto) 0.0 05/26/19 06:33: Magnesium 1.9 05/26/19 06:33: Sodium 137, Potassium 3.4 L D, Chloride 104, Carbon Dioxide 24, Anion Gap 12.4, BUN 25 H, Creatinine 0.97, Estimated Creat Clear 72, Estimated GFR 79, Est GFR ( Amer) 96 D, Glucose 166 H D, Calcium 8.1 L 05/26/19 10:57: POC Glucose 319 H* I & O for Last 24 hours: Intake & Output 05/24/19 05/25/19 05/26/19 05/27/19 11:59 11:59 11:59 11:59 Intake Total 2450 / 2450 3771 / 3771 Output Total 1000 / 1000 2650 / 2650 360 / 360 Balance 1450 / 1450 1121 / 1121 -360 / -360 Weight 131 lb 3 oz 136 lb 7 oz - Constitutional no acute distress - *Routine HEENT Exam Head: Present: normocephalic Eye: Present: EOMI, PERRL ENT: Present: mucous membranes moist - *Routine Neck Exam Present: supple. Absent: lymphadenopathy - *Routine Respiratory Exam Present: wheezes - *Routine Cardiovascular Exam Present: RRR - *Routine Abdominal Exam Present: soft, normoactive bowel sounds, tenderness - *Routine Extremities Exam Present: full ROM. Absent: cyanosis, clubbing, edema - *Routine Skin Exam Present: warm. Absent: rash - *Routine Neurological Exam Present: alert, oriented X3 Assessment and Plan (1) Hyponatremia Current visit: Yes Status: Acute Category: Medical Code(s): E87.1 - Hypo- osmolality and hyponatremia (2) DKA, type 1 Current visit: Yes Status: Acute Qualifiers: Diabetes mellitus complication detail: without coma Qualified Code(s): E10.10 - Type 1 diabetes mellitus with ketoacidosis without coma Category: Medical Code(s): E10.10 - Type 1 diabetes mellitus with ketoacidosis without coma (3) COPD (chronic obstructive pulmonary disease) Current visit: No Status: Acute Qualifiers: COPD type: unspecified COPD Qualified Code(s): J44.9 - Chronic obstructive pulmonary disease, unspecified Category: Medical Code(s): J44.9 - Chronic obstructive pulmonary disease, unspecified (4) Dehydration Current visit: No Status: Acute Category: Medical Code(s): E86.0 - De hydration (5) Hyperkalemia Current visit: No Status: Acute Category: Medical Code(s): E87.5 - Hyperkalemia (6) Sepsis Current visit: No Status: Acute Qualifiers: Sepsis type: sepsis due to unspecified organism Sepsis acute organ dysfunction status: with acute organ dysfunction Severe sepsis acute organ dysfunction type: unspecified Category: Medical Code(s): A41.9 - Sepsis, unspecified organism (7) Hyperlipidemia Current visit: No Status: Chronic Qualifiers: Hyperlipidemia type: mixed hyperlipidemia Qualified Code(s): E78.2 - Mixed hyperlipidemia Category: Medical Code(s): E78.5 - Hyperlipidemia, unspecified (8) Hypertensive heart disease without heart failure Current visit: No Status: Chronic Category: Medical Code(s): I11.9 - Hypertensive heart disease without heart failure (9) Tobacco abuse Current visit: No Status: Chronic Category: Medical Code(s): Z72.0 - Tobacco use (10) JENS (acute kidney injury) Current visit: Yes Status: Acute Category: Medical Code(s): N17.9 - Acute kidney failure, unspecified (11) Stented coronary artery Current visit: No Status: Chronic Category: Surgical Code(s): Z95.5 - Presence of coronary angioplasty implant and graft - Assessment and plan all Dx Assessment and Plan for all problems:: rounded with dr fernandez all orders per rebecca yañez place back on home meds sandeep prince in [place]
[2019-05-27 06:23] LABS: Basophils % 0.3 % (0.1-2.0); Eosinophils # 0.1 K/mm3 (0.0-0.4); Eosinophils % 0.9 % (0.1-12.0); Hematocrit 30.1 % (42.0-52.0); Hemoglobin 9.6 g/dL (14.1-18.0); Lymphocytes # 1.5 K/mm3 (0.7-4.5); Lymphocytes % 17.7 % (10-50); Mean Corpuscular HGB Conc 31.8 g/dL (31.8-35.4); Mean Corpuscular Volume 101.2 fl (80-94); Mean Platelet Volume 8.1 fl (7.4-10.4); Monocytes # 0.5 K/mm3 (0.1-1.0); Neutrophils # 6.2 K/mm3 (1.8-7.8); Platelet Count 267 K/mm3 (142-424); Red Blood Count 2.98 M/mm3 (4.60-6.20); Red Cell Distribution Width 15.2 % (11.5-17.5); White Blood Count 8.2 K/mm3 (4.8-10.8)
[2019-05-27 06:27] LABS: Anion Gap 10.5 mEq/L (5-15)
--- NOTE | 2019-05-27 10:06 | Progress Note ---
Internal Medicine - PN: Subj *Date: 05/27/19 *Time: 10:04 Interval history: pt doing better and tolerating liquid diet - will advance activity and diet Exam Vital signs and Labs for Last 24 Hours: Temp Pulse Resp BP Pulse Ox 97.8 F 72 18 120/69 97 05/27/19 08:00 05/27/19 08:00 05/27/19 08:00 05/27/19 08:00 05/27/19 08:00 Laboratory Results - last 24 hr 05/26/19 10:57: POC Glucose 319 H* 05/26/19 15:55: POC Glucose 308 H* 05/26/19 20:16: POC Glucose 241 H 05/27/19 05:35: POC Glucose 57 L 05/27/19 05:38: Sodium 139, Potassium 3.5, Chloride 106, Carbon Dioxide 26, Anion Gap 10.5, BUN 10 D, Creatinine 0.52 L D, Estimated Creat Clear 140, Estimated GFR 163, Est GFR ( Amer) 197 D, Glucose 57 L D, Calcium 8.0 L 05/27/19 05:38: WBC 8.2 D, RBC 2.98 L, Hgb 9.6 L, Hct 30.1 L, MCV 101.2 H, MCH 32.2 H, MCHC 31.8, RDW 15.2, Plt Count 267, MPV 8.1, Neut % (Auto) 75.0, Lymph % (Auto) 17.7, [place] % (Auto) 6.0, Eos % (Auto) 0.9, Baso % (Auto) 0.3, Neut # (Auto) 6.2, Lymph # (Auto) 1.5, [place] # (Auto) 0.5, Eos # (Auto) 0.1, Baso # (Auto) 0.0 05/27/19 05:55: POC Glucose 88 I & O for Last 24 hours: Intake & Output 05/24/19 05/25/19 05/26/19 05/27/19 11:59 11:59 11:59 11:59 Intake Total 2450 / 2450 3771 / 3771 3776 / 3776 Output Total 1000 / 1000 2950 / 2950 1035 / 1035 Balance 1450 / 1450 821 / 821 2741 / 2741 Weight 131 lb 3 oz 136 lb 7 oz 143 lb 2 oz Microbiology Reports for the Last 24 Hours: Microbiology 05/25/19 00:30 Blood Blood Culture - Preliminary NO GROWTH AFTER 48 HOURS 05/25/19 00:30 Blood Blood Culture - Preliminary NO GROWTH AFTER 48 HOURS - Constitutional no acute distress, thin - *Routine HEENT Exam Head: Present: normocephalic Eye: Present: EOMI, PERRL. Absent: conjunctival icterus ENT: Present: mucous membranes dry - *Routine Neck Exam Absent: JVD - *Routine Respiratory Exam Absent: respiratory distress - *Routine Cardiovascular Exam Present: RRR - *Routine Abdominal Exam Present: soft - *Routine Extremities Exam Present: full ROM - *Routine Skin Exam Present: intact - *Routine Neurological Exam Present: alert, oriented X3, CN II-XII intact - Routine Psychiatric Exam Present: normal affect Assessment and Plan (1) Hyponatremia Current visit: Yes Status: Acute Category: Medical Code(s): E87.1 - Hypo- osmolality and hyponatremia (2) DKA, type 1 Current visit: Yes Status: Acute Qualifiers: Diabetes mellitus complication detail: without coma Qualified Code(s): E10.10 - Type 1 diabetes mellitus with ketoacidosis without coma Category: Medical Code(s): E10.10 - Type 1 diabetes mellitus with ketoacidosis without coma (3) COPD (chronic obstructive pulmonary disease) Current visit: No Status: Acute Qualifiers: COPD type: unspecified COPD Qualified Code(s): J44.9 - Chronic obstructive pulmonary disease, unspecified Category: Medical Code(s): J44.9 - Chronic obstructive pulmonary disease, unspecified (4) Dehydration Current visit: No Status: Acute Category: Medical Code(s): E86.0 - Dehydration (5) Hyperkalemia Current visit: No Status: Acute Category: Medical Code(s): E87.5 - Hyperkalemia (6) Sepsis Current visit: No Status: Acute Qualifiers: Sepsis type: sepsis due to unspecified organism Sepsis acute organ dysfunction status: with acute organ dysfunction Severe sepsis acute organ dysfunction type: unspecified Category: Medical Code(s): A41.9 - Sepsis, unspecified organism (7) Hyperlipidemia Current visit: No Status: Chronic Qualifiers: Hyperlipidemia type: mixed hyperlipidemia Qualified Code(s): E78.2 - Mixed hyperlipidemia Category: Medical Code(s): E78.5 - Hyperlipidemia, unspecified (8) Hypertensive heart disease without heart failure Current visit: No Status: Chronic Category: Medical Code(s): I11.9 - Hypertensive heart disease without heart failure (9) Tobacco abuse Current visit: No Status: Chronic Category: Medical Code(s): Z72.0 - Tobacco use (10) JENS (acute kidney injury) Current visit: Yes Status: Acute Category: Medical Code(s): N17.9 - Acute kidney failure, unspecified (11) Stented coronary artery Current visit: No Status: Chronic Category: Surgical Code(s): Z95.5 - Presence of coronary angioplasty implant and graft (12) Anemia Current visit: Yes Status: Acute Qualifiers: Anemia type: unspecified type Qualified Code(s): D64.9 - Anemia, unspecified Category: Medical Code(s): D64.9 - Anemia, unspecified
[2019-05-28 07:36] LABS: Basophils % 0.3 % (0.1-2.0); Eosinophils # 0.1 K/mm3 (0.0-0.4); Eosinophils % 1.2 % (0.1-12.0); Hematocrit 30.9 % (42.0-52.0); Hemoglobin 10.2 g/dL (14.1-18.0); Lymphocytes # 1.3 K/mm3 (0.7-4.5); Lymphocytes % 18.9 % (10-50); Mean Corpuscular Volume 99.2 fl (80-94); Mean Platelet Volume 8.2 fl (7.4-10.4); Monocytes # 0.5 K/mm3 (0.1-1.0); Monocytes % 6.7 % (1.7-9.3); Neutrophils # 4.9 K/mm3 (1.8-7.8); Neutrophils % 72.7 % (37.0-80.0); Platelet Count 259 K/mm3 (142-424); Red Blood Count 3.11 M/mm3 (4.60-6.20); White Blood Count 6.7 K/mm3 (4.8-10.8)
[2019-05-28 07:44] LABS: Anion Gap 10.1 mEq/L (5-15); Calcium 8.1 mg/dL (8.5-10.1)
--- NOTE | 2019-05-28 09:40 | Discharge Summary ---
General - General Admission date:: 05/25/19 Discharge date: 05/28/19 HPI HPI: Mr. Robison is a 59-year-old gentleman with history of insulin-dependent diabetes, additional history per note below. He presented to the ER due to significant abdominal pain, fatigue, weakness worsening over the past 5 days. States he is felt significantly nauseous, poor p.o. intake. Has stopped taking his insulin for the past 3 days because he felt so bad. Continued to have worsening progression of his symptoms leading to his being brought to the ER. On admission he was found to have high anion gap metabolic acidosis, hyperglycemia, and significant dehydration with JENS. Admitted to medicine for treatment of severe DKA. Initiated on insulin drip and DKA protocol. Showed improvement in pH after initiation of treatment and was admitted to stepdown unit for further management. This morning he continues to complain about feeling dry, wanting something to drink. States he still has some mild nausea and abdominal pain but denies any chest pain or shortness of breath. Appears ill but interactive and responsive on exam. Alert and oriented to person place and situation. States compliance with insulin but then reports not having taken it in 3 days. Elevated leukocytosis and meeting SIRS criteria however no clear source of infection. Hospital Course Hospital Course: 05/25/19 05/25/19 05/25/19 00:42 03:32 05:03 ABG pH 6.96 L* ABG pCO2 13.1 L ABG pO2 120.2 H ABG HCO3 2.9 L ABG Total CO2 3.3 L ABG O2 Saturation 97 ABG Base Excess -29.0 L VBG pH 6.88 L 7.02 L VBG pCO2 25.9 L 21.1 L VBG pO2 64.0 H 68.6 H VBG HCO3 4.7 L 5.3 L VBG Total CO2 5.5 L 6.0 L VBG O2 Saturation 83.6 H 89.4 H VBG Base Excess -28.5 L -25.7 L Diabetes panel 05/28/19 Range/Units 07:25 Sodium 135 L (136-145) mmol/L Potassium 4.1 (3.5-5.1) mmoL/L Chloride 101 (98-107) mmol/L Carbon Dioxide 28 (21.0-32.0) mmol/L BUN 9 (7-18) mg/dL Creatinine 0.64 L D (0.70-1.30) mg/dL Glucose 175 H (74-106) mg/dL Calcium 8.1 L (8.5-10.1) mg/dL Calcium panel 05/28/19 Range/Units 07:25 Calcium 8.1 L (8.5-10.1) mg/dL Pituitary panel 05/28/19 Range/Units 07:25 Sodium 135 L (136-145) mmol/L Potassium 4.1 (3.5-5.1) mmoL/L Chloride 101 (98-107) mmol/L Carbon Dioxide 28 (21.0-32.0) mmol/L BUN 9 (7-18) mg/dL Creatinine 0.64 L D (0.70-1.30) mg/dL Glucose 175 H (74-106) mg/dL Calcium 8.1 L (8.5-10.1) mg/dL Adrenal panel 05/28/19 Range/Units 07:25 Sodium 135 L (136-145) mmol/L Potassium 4.1 (3.5-5.1) mmoL/L Chloride 101 (98-107) mmol/L Carbon Dioxide 28 (21.0-32.0) mmol/L BUN 9 (7-18) mg/dL Creatinine 0.64 L D (0.70-1.30) mg/dL Glucose 175 H (74-106) mg/dL Calcium 8.1 L (8.5-10.1) mg/dL Patient sitting up in chair back to baseline. Patient states he feels well has been able to eat and drink without any difficulty. Patient's labs normalized and glucose is back to patient's baseline. Patient will be discharged home and followed up by Mykel fernandez discussed the importance of managing a diabetic diet and medications. Objective Vital signs: Temp Pulse Resp BP Pulse Ox 98.5 F 88 16 115/62 97 05/28/19 08:00 05/28/19 08:00 05/28/19 08:00 05/28/19 08:00 05/28/19 08:00 no acute distress - *Routine HEENT Exam Head: Present: normocephalic Eye: Present: PERRL ENT: Present: mucous membranes moist - *Routine Respiratory Exam Present: CTA bilaterally - *Routine Cardiovascular Exam Present: RRR - *Routine Abdominal Exam Present: soft, normoactive bowel sounds. Absent: tenderness - *Routine Extremities Exam Present: full ROM - *Routine Skin Exam Present: intact - *Routine Neurological Exam Present: alert, oriented X3 - Routine Psychiatric Exam Present: normal affect Results Labs on day of discharge: Labs from last 24 hours 05/28/19 05/28/19 05/28/19 07:28 07:25 07:25 WBC 6.7 RBC 3.11 L Hgb 10.2 L Hct 30.9 L MCV 99.2 H MCH 32.8 H MCHC 33.0 RDW 15.0 Plt Count 259 MPV 8.2 Neut % (Auto) 72.7 Lymph % (Auto) 18.9 [place] % (Auto) 6.7 Eos % (Auto) 1.2 Baso % (Auto) 0.3 Neut # (Auto) 4.9 Lymph # (Auto) 1.3 [place] # (Auto) 0.5 Eos # (Auto) 0.1 Baso # (Auto) 0.0 Sodium 135 L Potassium 4.1 Chloride 101 Carbon Dioxide 28 Anion Gap 10.1 BUN 9 Creatinine 0.64 L D Estimated Creat Clear 113 Estimated GFR 128 Est GFR ( Amer) 155 D Glucose 175 H POC Glucose 181 H Calcium 8.1 L 05/28/19 05/28/19 05/27/19 05:52 00:05 21:36 WBC RBC Hgb Hct MCV MCH MCHC RDW Plt Count MPV Neut % (Auto) Lymph % (Auto) [place] % (Auto) Eos % (Auto) Baso % (Auto) Neut # (Auto) Lymph # (Auto) [place] # (Auto) Eos # (Auto) Baso # (Auto) Sodium Potassium Chloride Carbon Dioxide Anion Gap BUN Creatinine Estimated Creat Clear Estimated GFR Est GFR ( Amer) Glucose POC Glucose 145 H 227 H 354 H* Calcium 05/27/19 05/27/19 05/25/19 16:53 11:25 00:30 WBC RBC Hgb Hct MCV MCH MCHC RDW Plt Count MPV Neut % (Auto) Lymph % (Auto) [place] % (Auto) Eos % (Auto) Baso % (Auto) Neut # (Auto) Lymph # (Auto) [place] # (Auto) Eos # (Auto) Baso # (Auto) Sodium Potassium Chloride Carbon Dioxide Anion Gap BUN Creatinine Estimated Creat Clear Estimated GFR Est GFR ( Amer) Glucose POC Glucose 312 H* 315 H* > 600 H* Calcium Preliminary micro results at discharge 05/25/19 00:30 Blood Culture - Preliminary Blood NO GROWTH AFTER 48 HOURS 05/25/19 00:30 Blood Culture - Preliminary Blood NO GROWTH AFTER 48 HOURS - Additional Comments Rounded with Dr. Kaye all orders per Mikki DS: Diagnosis - Discharge Diagnosis (1) Hyponatremia Status: Acute (2) DKA, type 1 Status: Acute (3) COPD (chronic obstructive pulmonary disease) Status: Acute (4) Dehydration Status: Acute (5) Hyperkalemia Status: Acute (6) Sepsis Status: Acute (7) Hyperlipidemia Status: Chronic (8) Hypertensive heart disease without heart failure Status: Chronic (9) Tobacco abuse Status: Chronic (10) JENS (acute kidney injury) Status: Acute (11) Stented coronary artery Status: Chronic (12) Anemia Status: Acute Discharge Plan - Patient Discharge Instructions ACTIVITY: Continue current activity DIET: continue same diet Patient Instructions: Pneumonia-Adult, Pneumococcal Vaccine, DI for Pneumonia -- Adult, Diabetic Ketoacidosis, DI for Diabetic Ketoacidosis - Follow up Plan Follow up with: Mykel Kaiser APRN [Nurse Practitioner] - 06/05/19 5:30 pm Disposition: Home, Self-M[facility] Medications: Home Medications Medication Instructions Recorded Confirmed Type nitroglycerin 0.4 mg sublingual 0.4 mg SUBLINGUAL Q5M PRN 08/08/17 05/25/19 History tablet carvedilol 6.25 mg tablet 6.25 mg PO BID #60 tab 01/03/19 05/25/19 Rx Blood Sugar Diagnostic [Premier See Dose Instructions 1000units 01/11/19 05/25/19 History Test Strip] .ROUTE .MEDSUPPLY Clopidogrel Bisulfate [Plavix 75mg 75 mg PO DAILY 01/11/19 05/25/19 History Tab] Syringe-Needle,Insulin,0.5 ml See Dose Instructions unit .ROUTE 01/11/19 05/25/19 History [Litetouch Insulin Syringe] .MEDSUPPLY gabapentin 400 mg capsule 400 mg PO BID #60 cap 02/01/19 05/25/19 Rx Simvastatin 5 mg PO HS 03/07/19 05/25/19 History Insulin Lispro Protamin/Lispro 0 unit SQ DIRECTED #0 03/08/19 05/25/19 Rx [Humalog Mix 75/25 100 Units/mL 10mL Vial] aspirin 81 mg tablet,delayed 81 mg PO DAILY #90 tab 03/27/19 05/25/19 Rx release lisinopril 2.5 mg tablet 2.5 mg PO DAILY #90 tab 03/27/19 05/25/19 Rx insulin glargine 100 unit/mL (3 8 unit SQ HS 30 Days #1 insuln.pen 05/02/19 05/25/19 Rx mL) subcutaneous pen metformin 1,000 mg tablet 1,000 mg PO BID 90 Days #180 tab 05/14/19 05/25/19 Rx Furosemide [Furosemide 20mg Tab] 20 mg PO DAILY #90 tab 05/28/19 Rx Pantoprazole Sodium [Protonix 40mg 40 mg PO DAILY 30 Days #30 tab 05/28/19 Rx tablet] Prescriptions/Medication Reconciliation: Continued nitroglycerin 0.4 mg sublingual tablet 0.4 mg SUBLINGUAL Q5M PRN PRN Reason: Chest Pain carvedilol 6.25 mg tablet 6.25 mg PO BID #60 tab aspirin 81 mg tablet,delayed release 81 mg PO DAILY #90 tab lisinopril 2.5 mg tablet 2.5 mg PO DAILY #90 tab gabapentin 400 mg capsule 400 mg PO BID #60 cap insulin glargine 100 unit/mL (3 mL) subcutaneous pen 8 unit SQ HS 30 Days #1 insuln.pen metformin 1,000 mg tablet 1,000 mg PO BID 90 Days #180 tab Syringe-Needle,Insulin,0.5 ml [Litetouch Insulin Syringe] See Dose Instructions unit .ROUTE .MEDSUPPLY Clopidogrel Bisulfate [Plavix 75mg Tab] 75 mg PO DAILY Blood Sugar Diagnostic [Premier Test Strip] See Dose Instructions 1000units .ROUTE .MEDSUPPLY Pantoprazole Sodium [Protonix 40mg tablet] 40 mg PO DAILY 30 Days #30 tab Simvastatin 5 mg PO HS Insulin Lispro Protamin/Lispro [Humalog Mix 75/25 100 Units/mL 10mL Vial] 0 unit SQ DIRECTED #0 Furosemide [Furosemide 20mg Tab] 20 mg PO DAILY #90 tab - Problem Reconciliation Problems Reviewed?: Yes
== END 2019-05-28 10:25 | disposition home or self-care (01) | DRG 638 ==
LOC: ER 00:47 → 2ND 03:59
PROVIDERS: ADMIT Internal Medicine Adolescent Medicine; ATTEND Emergency Medicine
CPT/HCPCS: 36415; 71010; 71045; 80048; 80053; 81001; 82009; 82803; 82962; 83605; 83615; 83735; 83880; 85007; 85025; 87040; 87275; 87276; 93005; 96365; 96366; 96367; 99285; J2405; J3370

== ENCOUNTER 2019-07-16 18:11 | Observation (INO) ==
--- NOTE | 2019-07-16 18:28 | Emergency Department Note ---
ED Disposition Clinical Impression: Cellulitis, Fatigue, Hyperglycemia due to type 2 diabetes mellitus Disposition: Admitted as Observation Condition on Discharge: Good Additional Instructions: Spoke to Dr. Kirkpatrick to admit patient secondary to cellulitis and complications from uncontrolled diabetes mellitus type 2 Referrals: Provider,Referral, [Primary Care Provider] - - Critical Care Critical Care Time: No Attestation: On 07/16/19, the high probability of a clinically significant, sudden or life threatening deterioration of the following system(s) required my full and direct attention, intervention and personal management. The time I documented below is in addition to time spent performing reported procedures but includes the following listed in this critical care notation. Medical Decision Making - Aung Inquiry Pt receiving controlled substance: No Vital Signs: 07/16/19 18:12 Temperature 98.3 F Temperature Source Oral Pulse Rate [Right Radial] 82 Respiratory Rate 18 Blood Pressure [Right Arm] 98/61 L Blood Pressure Mean [Right Arm] 73 02 Sat by Pulse Oximetry 93 L Oxygen Delivery Method Room Air - Lab Data Lab Results 07/16/19 18:20: Urine Color Yellow, Urine Appearance Clear, Urine pH 6.0, Ur Specific [place] 1.010, Urine Protein Negative, Urine Glucose (UA) 3+, Urine Ketones Negative, Urine Blood Negative, Urine Nitrate Negative, Urine Bilirubin Negative, Urine Urobilinogen 0.2, Ur Leukocyte Esterase Negative, Urine WBC Occasional, Ur Squamous Epith Cells Occasional, Urine Bacteria Trace 07/16/19 18:20: WBC 9.3, RBC 3.24 L, Hgb 10.1 L, Hct 33.4 L, MCV 103.2 H, MCH 31.3 H, MCHC 30.3 L, RDW 14.9, Plt Count 447 H, MPV 8.0, Neut % (Auto) 75.4, Lymph % (Auto) 16.9, [place] % (Auto) 6.2, Eos % (Auto) 0.9, Baso % (Auto) 0.5, Neut # (Auto) 7.1, Lymph # (Auto) 1.6, [place] # (Auto) 0.6, Eos # (Auto) 0.1, Baso # (Auto) 0.0, ESR 93 H 07/16/19 18:20: Sodium 131 L, Potassium 4.5, Chloride 91 L, Carbon Dioxide 30, Anion Gap 14.5, BUN 15, Creatinine 0.70, Estimated Creat Clear 106, Estimated GFR 115, Est GFR ( Amer) 140, Calcium 9.3, Total Bilirubin 0.3, AST 20, ALT 18, Alkaline Phosphatase 90, Troponin I < 0.01, C-Reactive Protein 43.1 H, Total Protein 6.7, Albumin 3.7, Globulin 3.0, Albumin/Globulin Ratio 1.2 07/16/19 18:20: Lactate 1.2 07/16/19 18:20: Influenza Type A Ag Negative, Influenza Type B Ag Negative Result diagrams: 07/16/19 18:20 07/16/19 18:20 Orders (Tests/Meds): ED MEDICATIONS Generic Name Dose Route Start Last Admin Trade Name Freq PRN Reason Stop Dose Admin Sodium Chloride 1,000 mls @ 999 mls/hr 07/16/19 18:30 07/16/19 18:34 Sod Chlor 0.9% 1000ml Bag IV 07/16/19 19:30 999 mls/hr .Q1H1M HUMBERTO Administration ORDERS Category Date Time Status XR chest 2V Stat Exams 07/16/19 18:16 Taken XR hand RT min 3V Stat Exams 07/16/19 18:16 Taken Acetone, Serum (Rapid) Stat Lab 07/16/19 18:20 Results CRP [C-Reactive Protein] Stat Lab 07/16/19 18:20 Results Comprehensive Metabolic Panel Stat Lab 07/16/19 18:20 Results Hemoglobin A1C Stat Lab 07/16/19 18:20 Received Troponin I Q3H Lab 07/16/19 21:30 Ordered Troponin I Q3H Lab 07/17/19 00:30 Ordered Troponin I Stat Lab 07/16/19 18:20 Results Blood Culture Stat Micro 07/16/19 18:20 Received General Adult HPI - General Chief complaint: Weakness Stated complaint: weakness Time Seen by Provider: 07/16/19 18:11 Mode of Arrival: EMS Limitations: No Limitations Description of Symptoms (Recalled from ER Triage Doc. by RN): pt states that 8 days ago he smashed his right hand with some wood and then on tuesday last week he started feeling weak and having generalized pain and overall not feeling well. - History of Present Illness HPI narrative: 59-year-old gentleman presents the ED complaining of fatigue. Main complaint is his right hand. He states that a week ago Tuesday he was helping a friend stack some wood and his hand got caught between 2 logs and he smashed his hand. He states that since then it has been painful and he is noticed some swelling and some erythema of the hand and also it is now draining purulent discharge. He has had some chills. At home. He did have a temp via EMS at 100.4. Patient denies any nausea or vomiting. Patient also denies any other trauma or any other symptoms. - Related Data Home Medications Medication Instructions Recorded Confirmed nitroglycerin 0.4 mg sublingual 0.4 mg SUBLINGUAL Q5M PRN 08/08/17 05/25/19 tablet Clopidogrel Bisulfate [Plavix 75mg 75 mg PO DAILY 01/11/19 05/25/19 Tab] Syringe-Needle,Insulin,0.5 ml See Dose Instructions unit .ROUTE 01/11/19 05/25/19 [Litetouch Insulin Syringe] .MEDSUPPLY Simvastatin 5 mg PO HS 03/07/19 05/25/19 Previous Rx's Medication Instructions Recorded gabapentin 400 mg capsule 400 mg PO BID #60 cap 02/01/19 Insulin Lispro Protamin/Lispro 0 unit SQ DIRECTED #0 03/08/19 [Humalog Mix 75/25 100 Units/mL 10mL Vial] aspirin 81 mg tablet,delayed 81 mg PO DAILY #90 tab 03/27/19 release metformin 1,000 mg tablet 1,000 mg PO BID 90 Days #180 tab 05/14/19 Pantoprazole Sodium [Protonix 40mg 40 mg PO DAILY 30 Days #30 tab 05/28/19 tablet] furosemide 20 mg tablet 20 mg PO DAILY #90 tab 06/04/19 blood sugar diagnostic See Rx Instructions .ROUTE 06/05/19 .MEDSUPPLY #100 each lisinopril 2.5 mg tablet 2.5 mg PO DAILY #90 tab 06/21/19 carvedilol 6.25 mg tablet 6.25 mg PO BID #60 tab 06/25/19 insulin glargine 100 unit/mL (3 See Rx Instructions .ROUTE 07/02/19 mL) subcutaneous pen .COMPLEX #15 syringe Allergies Allergy/AdvReac Type Severity Reaction Status Date / Time Penicillins [PENICILLINS] Allergy Unknown Verified 07/16/19 18:[address] [facility] History - Hepatitis A Screen Drug use history?: No High risk sexual behaviors?: No History of sexually transmitted infection?: No Currently employed?: No Childcare worker?: No Do you have indoor plumbing?: Yes Do you have electricity?: Yes Attestation statement:: This patient has been screened for Hepatitis A risk factors. I have reviewed the patient's past medical history: Yes Medical History: Reports:: Congenital Heart Disease, Coronary Artery Disease, Diabetes Mellitus Type 1, Hepatitis, Hyperlipidemia, Hypertension, Myocardial Infarction Denies:: Cancer, Diabetes Mellitus Type 2, Internal Pacemaker, MRSA, Pulmonary Embolism, Seizures, Transient Ischemic Attacks (TIA) Other Medical History: Reports: Other Laterality Cases: Left: Other Other Surgeries: Yes: Cardiac Catheterization, Colonoscopy, Coronary Stent, Splenectomy, Other (splenectomy). No: Pacemaker Amputation: No Fractures: Yes Comment: Patient has 3 heart stents.facial bone surgery with plates,left leg fx,rods and screws placed - Social History Smoking Status: Current every day smoker Tobacco Type: cigarettes # Packs/Day (cigarettes): 1 #Yrs smoked (if former smoker): 50 Alcohol Intake: current Alcohol Intake Frequency:: a few times a week Substance Use Type: denies use Occupational Status: employed Housing: house Household Members: significant other Family Hx:: Coronary Artery Disease, Diabetes ROS Obtained: Yes All systems reviewed & no additional complaints - Constitutional Constitutional: Reports system reviewed and no additional complaints, except as docu - Eyes Eyes: Reports system reviewed and no additional complaints, except as docu - ENT Ears, Nose, Mouth, and Throat: Reports system reviewed and no additional complaints, except as docu - Cardiovascular Cardiovascular: Reports system reviewed and no additional complaints, except as docu - Respiratory Respiratory: Yes system reviewed and no additional complaints, except as docu - Gastrointestinal Gastrointestingal: Reports: system reviewed and no additional complaints, except as docu - Genitourinary Male Genitourinary: Reports system reviewed and no additional complaints, except as docu Female Genitourinary: Reports system reviewed and no additional complaints, except as docu - Musculoskeletal Musculoskeletal: Reports system reviewed and no additional complaints, except as docu - Integumentary/Breasts Skin/Breast: Reports system reviewed and no additional complaints, except as docu - Neurologic Neurologic: Reports system reviewed and no additional complaints, except as docu - Endocrine Endocrine: Reports system reviewed and no additional complaints, except as docu - Allergic/Immunologic Allergic/Immunologic: Reports system reviewed and no additional complaints, e xcept as docu Physical Exam - General General appearance: alert, in no apparent distress - Head Head exam: atraumatic, normocephalic - Eye Eye exam: Present: normal appearance - ENT ENT exam: Present: normal exam - Neck Neck exam: Present: normal inspection - Chest Chest inspection: Present: normal inspection - Respiratory Respiratory exam: Present: normal lung sounds bilaterally - Cardiovascular Cardiovascular exam: Present: regular rate - Abdominal Exam Abdominal exam: Present: soft - exam: Present: normal inspection - Expanded Upper Extremity Exam Right Comment: Patient's right hand he has some definite erythema and purulent discharge and is also painful to touch over the fourth and fifth meta carpal - Expanded Lower Extremity Exam Right Hip/Pelvis exam: Present: normal inspection Upper leg exam: Present: normal inspection Knee exam: Present: normal inspection Lower leg exam: Present: normal inspection Ankle exam: Present: normal inspection Foot/toe exam: Present: normal inspection Neurovascular/Tendon exam: Present: normal capillary refill - Back Exam Back exam: Present: normal inspection - Neurological Exam Neurological exam: Present: alert - Psychiatric Psychiatric exam: Present: normal affect - Skin Skin exam: Present: warm - Lymphatic Lymphatic Findings: no adenopathy
[2019-07-16 18:32] LABS: Microscopic, Urine URINE MICROSCOPIC (MICROSCOPIC)
[2019-07-16 18:36] LABS: Basophils % 0.5 % (0.1-2.0); Eosinophils # 0.1 K/mm3 (0.0-0.4); Eosinophils % 0.9 % (0.1-12.0); Hematocrit 33.4 % (42.0-52.0); Hemoglobin 10.1 g/dL (14.1-18.0); Lymphocytes # 1.6 K/mm3 (0.7-4.5); Lymphocytes % 16.9 % (10-50); Mean Corpuscular HGB Conc 30.3 g/dL (31.8-35.4); Mean Corpuscular Volume 103.2 fl (80-94); Monocytes # 0.6 K/mm3 (0.1-1.0); Monocytes % 6.2 % (1.7-9.3); Neutrophils # 7.1 K/mm3 (1.8-7.8); Neutrophils % 75.4 % (37.0-80.0); Platelet Count 447 K/mm3 (142-424); Red Blood Count 3.24 M/mm3 (4.60-6.20); Red Cell Distribution Width 14.9 % (11.5-17.5); White Blood Count 9.3 K/mm3 (4.8-10.8)
[2019-07-16 18:41] LABS: Chloride 91 mmol/L (98-107); Sodium 131 mmol/L (136-145)
[2019-07-16 18:42] LABS: Appearance,Urine CLEAR (Clear); Bilirubin,Urine Negative (Negative); Blood, Urine Negative (Negative); Color,Urine YELLOW (Yellow); Glucose,Urine (UA) 3+ (Negative); Ketones,Urine Negative (Negative); Leukocyte Esterase,Urine Negative (Negative); Protein,Urine Negative (Negative); Urobilinogen,Urine 0.2 EU/dl (0.2)
[2019-07-16 18:43] LABS: Alanine Aminotransferase 18 U/L (12-78); Aspartate Amino Transferase 20 U/L (17-59)
[2019-07-16 18:44] LABS: Albumin Level 3.7 g/dl (3.5-5.0); Albumin/Globulin Ratio 1.2 (1.1-1.8); Alkaline Phosphatase 90 U/L (38-126); Anion Gap 14.5 mEq/L (5-15); Bilirubin,Total 0.3 mg/dl (0.2-1.3); Carbon Dioxide 30 mmol/L (22.0-30.0); Total Protein,Serum 6.7 g/dl (6.3-8.2)
[2019-07-16 18:48] LABS: Blood Urea Nitrogen 15 mg/dl (9-20)
[2019-07-16 18:49] LABS: Bacteria,Urine Trace /lpf; C-Reactive Protein 43.1 mg/L (0-4); Squamous Epithelial Cell,Urine Occasional #/hpf (0-5); WBC,Urine Occasional #/hpf (0-3)
[2019-07-16 18:50] LABS: Calcium 9.3 mg/dl (8.4-10.2)
[2019-07-16 19:14] LABS: Erythrocyte Sedimentation Rate 93 mm/hr (0-20)
[2019-07-16 19:22] LABS: Glucose 450 mg/dl (74-100)
[2019-07-16 19:49] LABS: Acetone, Serum (Rapid) None Detected (None Detect)
--- NOTE | 2019-07-17 07:44 | Pharmacy Consult Notes ---
[facility] Pharmacy VTE Monitoring - Patient Demographics Admission date: 07/16/19 Report Date: 07/17/19 Time: 07:43 Allergies/Adverse Reactions: Patient Allergies Penicillins [PENICILLINS] Allergy (Unknown, Verified 07/16/19 22:05) Height: 1.8 m Weight: 63.758 kg Patient Problems: Current Active Problems Cellulitis (Acute) Fatigue (Acute) Hyperglycemia due to type 2 diabetes mellitus (Acute) - VTE Risk Labs: VTE Related Lab Results Hgb 10.1 g/dL (14.1-18.0) L 07/16/19 18:20 Hct 33.4 % (42.0-52.0) L 07/16/19 18:20 Plt Count 447 K/mm3 (142-424) H 07/16/19 18:20 BUN 15 mg/dl (9-20) 07/16/19 18:20 Creatinine 0.70 mg/dl (0.66-1.25) 07/16/19 18:20 Estimated Creat Clear 106 mL/min (50-200) 07/16/19 18:20 Was VTE Risk Assessment Performed: Yes VTE Score: 9 VTE Risk Level: Moderate Risk - Prophylaxis VTE Prophylaxis Ordered?: Yes Types of VTE Prophylaxis: TEDS Knee High Location of Applied Device: Bilateral Lower Extremeties Pharmacologic Type: Other (CLOPIDOGREL)
--- NOTE | 2019-07-17 08:13 | Pharmacy Consult Notes ---
- Pharmacy Consult Date: 07/17/19 Time: 08:12 Referring provider: DR. THAO Reason for Consult:: VANCOMYCIN DOSING Allergies and ADEs:: Allergies Allergy/AdvReac Type Severity Reaction Status Date / Time Penicillins [PENICILLINS] Allergy Unknown Unknown Verified 07/17/19 08:04 allergy reaction Home Medications:: Home Medications Medication Instructions Recorded Confirmed Type Clopidogrel Bisulfate [Plavix 75mg 75 mg PO DAILY 01/11/19 07/17/19 History Tab] gabapentin 400 mg capsule 400 mg PO BID #60 cap 02/01/19 07/17/19 Rx Simvastatin 5 mg PO HS 03/07/19 07/17/19 History aspirin 81 mg tablet,delayed 81 mg PO DAILY #90 tab 03/27/19 07/17/19 Rx release metformin 1,000 mg tablet 1,000 mg PO BID 90 Days #180 tab 05/14/19 07/17/19 Rx Pantoprazole Sodium [Protonix 40mg 40 mg PO DAILY 30 Days #30 tab 05/28/19 07/17/19 Rx tablet] furosemide 20 mg tablet 20 mg PO DAILY #90 tab 06/04/19 07/17/19 Rx lisinopril 2.5 mg tablet 2.5 mg PO DAILY #90 tab 06/21/19 07/17/19 Rx carvedilol 6.25 mg tablet 6.25 mg PO BID #60 tab 06/25/19 07/17/19 Rx Insulin Glargine,Hum.rec.anlog 20 units SQ DIRECTED 07/16/19 07/17/19 History [Lantus Solostar 100 Units/mL 3mL flexpen] Insulin Lispro Protamin/Lispro 10 unit SQ HS 07/16/19 07/17/19 History [Humalog Mix 75/25 100 Units/mL 10mL Vial] Height: 1.8 m Weight: 63.758 kg Laboratory Results:: Laboratory Results - last 24 hr 07/16/19 18:20: Urine Color Yellow, Urine Appearance Clear, Urine pH 6.0, Ur Specific [place] 1.010, Urine Protein Negative, Urine Glucose (UA) 3+, Urine Ketones Negative, Urine Blood Negative, Urine Nitrate Negative, Urine Bilirubin Negative, Urine Urobilinogen 0.2, Ur Leukocyte Esterase Negative, Urine WBC Occasional, Ur Squamous Epith Cells Occasional, Urine Bacteria Trace 07/16/19 18:20: WBC 9.3, RBC 3.24 L, Hgb 10.1 L, Hct 33.4 L, MCV 103.2 H, MCH 31.3 H, MCHC 30.3 L, RDW 14.9, Plt Count 447 H, MPV 8.0, Neut % (Auto) 75.4, Lymph % (Auto) 16.9, [place] % (Auto) 6.2, Eos % (Auto) 0.9, Baso % (Auto) 0.5, Neut # (Auto) 7.1, Lymph # (Auto) 1.6, [place] # (Auto) 0.6, Eos # (Auto) 0.1, Baso # (Auto) 0.0, ESR 93 H 07/16/19 18:20: Sodium 131 L, Potassium 4.5, Chloride 91 L, Carbon Dioxide 30, Anion Gap 14.5, BUN 15, Creatinine 0.70, Estimated Creat Clear 106, Estimated GFR 115, Est GFR ( Amer) 140, Glucose 450 H*, Calcium 9.3, Total Bilirubin 0.3, AST 20, ALT 18, Alkaline Phosphatase 90, Troponin I < 0.01, C- Reactive Protein 43.1 H, Total Protein 6.7, Albumin 3.7, Globulin 3.0, Albumin/Globulin Ratio 1.2, Acetone Level None detected 07/16/19 18:20: Lactate 1.2 07/16/19 18:20: Influenza Type A Ag Negative, Influenza Type B Ag Negative 07/16/19 18:20: Hemoglobin A1c 12.6 H 07/16/19 22:00: POC Glucose 238 H 07/17/19 05:19: POC Glucose 72 Medical History: Reports:: Congenital Heart Disease, Coronary Artery Disease, Diabetes Mellitus Type 1, Hepatitis, Hyperlipidemia, Hypertension, Myocardial Infarction Denies:: Cancer, Diabetes Mellitus Type 2, Internal Pacemaker, MRSA, Pulmonary Embolism, Seizures, Transient Ischemic Attacks (TIA) Assessment and Plan - Assessment and plan all Dx Assessment and Plan for all problems:: BASED ON PATIENT FACTORS, RECOMMEND VANCOMYCIN 1 GM IV Q12H. WILL OBTAIN VANCOMYCIN TROUGH LEVEL TOMORROW PRIOR TO 4TH DOSE. PHARMACY WILL FOLLOW DAILY AND ADJUST APPROPRIATE.
[2019-07-17 08:48] LABS: Basophils % 0.4 % (0.1-2.0); Eosinophils # 0.1 K/mm3 (0.0-0.4); Eosinophils % 1.7 % (0.1-12.0); Hematocrit 32.1 % (42.0-52.0); Hemoglobin 9.8 g/dL (14.1-18.0); Lymphocytes # 1.7 K/mm3 (0.7-4.5); Lymphocytes % 20.6 % (10-50); Mean Corpuscular HGB Conc 30.6 g/dL (31.8-35.4); Mean Corpuscular Volume 103.3 fl (80-94); Mean Platelet Volume 7.9 fl (7.4-10.4); Monocytes # 0.7 K/mm3 (0.1-1.0); Monocytes % 8.6 % (1.7-9.3); Neutrophils # 5.7 K/mm3 (1.8-7.8); Neutrophils % 68.7 % (37.0-80.0); Platelet Count 471 K/mm3 (142-424); Red Blood Count 3.11 M/mm3 (4.60-6.20); White Blood Count 8.3 K/mm3 (4.8-10.8)
[2019-07-17 08:54] LABS: Anion Gap 10.4 mEq/L (5-15)
--- NOTE | 2019-07-17 09:03 | Electrocardiograph Report ---
APPROVED REPORT Exam: Resting ECG HR:77 bpm ECG Measurements Heart Rate 77 AXES SC 158 P 77 QRSd 88 QRS -35 QT 384 T43 QTc 434 <Conclusion> Normal sinus rhythm Left axis deviation Voltage criteria for left ventricular hypertrophy Abnormal ECG Electronically signed by : Vipul Platt, 07/17/2019 09:02:41
--- NOTE | 2019-07-17 09:27 | History & Physical Report ---
*Admission Date: 07/16/19 *Chief complaint: R Hand Injury *History of present illness: 59-year-old gentleman presents the ED complaining of fatigue. Main complaint is his right hand. He states that a week ago Tuesday he was helping a friend stack some wood and his hand got caught between 2 logs and he smashed his hand. He states that since then it has been painful and he is noticed some swelling and some erythema of the hand and also it is now draining purulent discharge. He has had some chills. At home. He did have a temp via EMS at 100.4. Patient denies any nausea or vomiting. Patient also denies any other trauma or any other symptoms (Per Dr. Powers). 59-year-old male patient sitting up in bed, dressing applied to right hand. Dressing removed, wound culture obtained and sent to lab. Patient displays 2 of 4 [place]'s signs, finger in slight flexion and pain with flexion. [facility] History Medical History: Reports:: Congenital Heart Disease, Coronary Artery Disease, Diabetes Mellitus Type 1, Hepatitis, Hyperlipidemia, Hypertension, Myocardial Infarction Denies:: Cancer, Diabetes Mellitus Type 2, Internal Pacemaker, MRSA, Pulmonary Embolism, Seizures, Transient Ischemic Attacks (TIA) *Have you ever received a pneumonia vaccine?: Yes (02/2019) *Have you received a flu vaccine this season?: Yes (02/2019) Other Medical History: Reports: Other Laterality Cases: Left: Other Other Surgeries: Yes: Cardiac Catheterization, Colonoscopy, Coronary Stent, Splenectomy, Other (splenectomy). No: Pacemaker Amputation: No Fractures: Yes - *Social History Educational Level: Completed GED/General Educational Development Smoking Status: Current every day smoker Tobacco Type: cigarettes # Packs/Day (cigarettes): 2 #Yrs smoked (if former smoker): 50 Alcohol Intake: current Alcohol Intake Frequency:: a few times a week Substance Use Type: marijuana *Occupational Status:: employed Housing: house Household Members: significant other *Travel in the last 8 weeks: None Family Hx:: Cancer, Coronary Artery Disease, Diabetes, Heart Attack, Hyperlipidemia, Alcoholism Review of Systems - Review of Systems Review of systems:: pertinent systems reviewed and negative unless documented below - Constitutional Reports fatigue, Reports fever(s), Denies chills - Eyes Denies change in vision - ENT Denies difficulty swallowing, Denies sinus pain - *Cardiovascular Denies chest pain at rest, Denies shortness of breath - *Respiratory Reports cough, Denies chest congestion, Denies shortness of breath - *Gastrointestinal Denies abdominal pain, Denies incontinent of stools - *Genitourinary Denies difficulty urinating - *Musculoskeletal Reports muscle weakness, Denies body aches - Integumentary/Breasts Denies yellowing of the skin, Denies skin ulcer - *Neurologic Denies abnormal speech, Denies unsteadiness - Psychiatric Denies change in appetite, Denies confusion - Endocrine Denies heat intolerance, Denies rapid, pounding, or irregular heartbeat - Hematologic/Lymphatic Denies easy bleeding, Denies easy bruising - Allergic/Immunologic Denies throat swelling, Denies tongue swelling Meds Home Medications Medication Instructions Recorded Confirmed Type Clopidogrel Bisulfate [Plavix 75mg 75 mg PO DAILY 01/11/19 07/17/19 History Tab] gabapentin 400 mg capsule 400 mg PO BID #60 cap 02/01/19 07/17/19 Rx Simvastatin 5 mg PO HS 03/07/19 07/17/19 History aspirin 81 mg tablet,delayed 81 mg PO DAILY #90 tab 03/27/19 07/17/19 Rx release metformin 1,000 mg tablet 1,000 mg PO BID 90 Days #180 tab 05/14/19 07/17/19 Rx Pantoprazole Sodium [Protonix 40mg 40 mg PO DAILY 30 Days #30 tab 05/28/19 07/17/19 Rx tablet] furosemide 20 mg tablet 20 mg PO DAILY #90 tab 06/04/19 07/17/19 Rx lisinopril 2.5 mg tablet 2.5 mg PO DAILY #90 tab 06/21/19 07/17/19 Rx carvedilol 6.25 mg tablet 6.25 mg PO BID #60 tab 06/25/19 07/17/19 Rx Insulin Glargine,Hum.rec.anlog 20 units SQ BID 07/16/19 07/17/19 History [Lantus Solostar 100 Units/mL 3mL flexpen] Insulin Lispro Protamin/Lispro 10 unit SQ HS 07/16/19 07/17/19 History [Humalog Mix 75/25 100 Units/mL 10mL Vial] Allergies Allergy/AdvReac Type Severity Reaction Status Date / Time Penicillins [PENICILLINS] Allergy Unknown Unknown Verified 07/17/19 08:04 allergy reaction Exam Vital signs and Labs for Last 24 Hours: Temp Pulse Resp BP Pulse Ox 98.0 F 73 18 103/61 L 94 L 07/17/19 07:23 07/17/19 07:23 07/17/19 07:23 07/17/19 07:23 07/17/19 07:23 Laboratory Results - last 24 hr 07/16/19 18:20: Urine Color Yellow, Urine Appearance Clear, Urine pH 6.0, Ur Specific [place] 1.010, Urine Protein Negative, Urine Glucose (UA) 3+, Urine Ketones Negative, Urine Blood Negative, Urine Nitrate Negative, Urine Bilirubin Negative, Urine Urobilinogen 0.2, Ur Leukocyte Esterase Negative, Urine WBC Occasional, Ur Squamous Epith Cells Occasional, Urine Bacteria Trace 07/16/19 18:20: WBC 9.3, RBC 3.24 L, Hgb 10.1 L, Hct 33.4 L, MCV 103.2 H, MCH 31.3 H, MCHC 30.3 L, RDW 14.9, Plt Count 447 H, MPV 8.0, Neut % (Auto) 75.4, Lymph % (Auto) 16.9, [place] % (Auto) 6.2, Eos % (Auto) 0.9, Baso % (Auto) 0.5, Neut # (Auto) 7.1, Lymph # (Auto) 1.6, [place] # (Auto) 0.6, Eos # (Auto) 0.1, Baso # (Auto) 0.0, ESR 93 H 07/16/19 18:20: Sodium 131 L, Potassium 4.5, Chloride 91 L, Carbon Dioxide 30, Anion Gap 14.5, BUN 15, Creatinine 0.70, Estimated Creat Clear 106, Estimated GFR 115, Est GFR ( Amer) 140, Glucose 450 H*, Calcium 9.3, Total Bilirubin 0.3, AST 20, ALT 18, Alkaline Phosphatase 90, Troponin I < 0.01, C- Reactive Protein 43.1 H, Total Protein 6.7, Albumin 3.7, Globulin 3.0, Albumin/Globulin Ratio 1.2, Acetone Level None detected 07/16/19 18:20: Lactate 1.2 07/16/19 18:20: Influenza Type A Ag Negative, Influenza Type B Ag Negative 07/16/19 18:20: Hemoglobin A1c 12.6 H 07/16/19 22:00: POC Glucose 238 H 07/17/19 05:19: POC Glucose 72 07/17/19 08:25: WBC 8.3, RBC 3.11 L, Hgb 9.8 L, Hct 32.1 L, MCV 103.3 H, MCH 31.6 H, MCHC 30.6 L, RDW 15.0, Plt Count 471 H, MPV 7.9, Neut % (Auto) 68.7, Lymph % (Auto) 20.6, [place] % (Auto) 8.6, Eos % (Auto) 1.7, Baso % (Auto) 0.4, Neut # (Auto) 5.7, Lymph # (Auto) 1.7, [place] # (Auto) 0.7, Eos # (Auto) 0.1, Baso # (Auto) 0.0 07/17/19 08:25: Sodium 131 L, Potassium 4.4, Chloride 95 L, Carbon Dioxide 30, Anion Gap 10.4, BUN 11 D, Creatinine 0.60 L, Estimated Creat Clear 120, Estimated GFR 138, Est GFR ( Amer) 167, Glucose 223 H D, Calcium 9.0 I & O for Last 24 hours: Intake & Output 07/14/19 07/15/19 07/16/19 07/17/19 23:59 23:59 23:59 23:59 Intake Total 1000 / 1880 1720 / 1720 Output Total 350 / 350 Balance 650 / 1530 1720 / 1720 Weight 140 lb 9 oz 140 lb 9 oz Microbiology Reports for the Last 24 Hours: Microbiology 07/17/19 08:30 Hand,Right - Drainage Gram Stain - Final - Constitutional no acute distress - *Routine HEENT Exam Head: Present: normocephalic, atraumatic Eye: Present: EOMI, PERRL, normal accommodation ENT: Present: mucous membranes moist - *Routine Neck Exam Present: supple, full ROM, trachea midline. Absent: JVD, tracheal deviation - *Routine Respiratory Exam Present: CTA bilaterally, diminished air movement. Absent: accessory muscle use - *Routine Cardiovascular Exam Present: RRR - *Routine Abdominal Exam Present: soft, normoactive bowel sounds. Absent: tenderness, firm - *Routine Extremities Exam Present: full ROM, pulses intact. Absent: calf tenderness - Routine Back/Spine/Pelvis Exam Back/Spine: Present: full ROM. Absent: CVA tenderness - *Routine Skin Exam Present: warm, wounds Comments: R Hand w/ open w/ purulent drng - *Routine Neurological Exam Present: alert, oriented X3, CN II-XII intact - Routine Psychiatric Exam Present: normal affect, normal thought process. Absent: auditory hallucinations, visual hallucinations Assessment and Plan (1) Cellulitis Current visit: Yes Status: Acute Qualifiers: Laterality: right Category: Medical Code(s): L03.90 - Cellulitis, unspecified (2) Hyperglycemia due to type 2 diabetes mellitus Current visit: Yes Status: Acute Category: Medical Code(s): E11.65 - Type 2 diabetes mellitus with hyperglycemia (3) Tobacco abuse Current visit: No Status: Chronic Category: Medical Code(s): Z72.0 - Tobacco use (4) Diabetes mellitus Current visit: No Status: Chronic Qualifiers: Diabetes mellitus type: type 2 Diabetes mellitus residential insulin use: with residential use Diabetes mellitus complication status: with circulatory complication Diabetes mellitus complication detail: with other circulatory complications Qualified Code(s): E11.59 - Type 2 diabetes mellitus with other circulatory complications Category: Medical Code(s): E11.9 - Type 2 diabetes mellitus without complications - Assessment and plan all Dx Assessment and Plan for all problems:: Rounded with Dr. Kaye, all orders per Dr. Kaye 1. Consult Ortho 2. Hand CT with contrast 3. Wound culture 4. Dietitian consult
--- NOTE | 2019-07-17 11:00 | Consult Report ---
*Admission Date: 07/16/19 *Reason for consult:: Abscess right hand *History of present illness: Patient is a 59-year-old male who developed pain and swelling over the dorsum of the hand following an injury over a week ago. He presented to the ER yesterday evening and was admitted for further management. He says his hand got smashed between 2 wooden logs while he was helping his friend to stack up the wood about 8 days ago. It has gotten worse over the weekend and started draining purulent material. He presented to the ER yesterday from where he was admitted for further management. He reports some chills at home but no rigors or fevers. He is a known type I diabetic which is poorly controlled. Following admission he was started on IV vancomycin. No history of any previous similar problems. No history of any distal tingling or numbness. His past medical history includes type 1 diabetes, coronary artery disease, [place], hepatitis C and hypertension. Review of Systems - Review of Systems Review of systems:: pertinent systems reviewed and negative unless documented below - Constitutional Reports chills, Reports fatigue, Reports weakness - Eyes Denies change in vision - ENT Denies abnormal hearing, Denies difficulty swallowing, Denies headache(s) - *Cardiovascular Denies chest pain, Denies shortness of breath - *Respiratory Reports cough, Denies chest congestion, Denies shortness of breath - *Gastrointestinal Denies abdominal pain, Denies incontinent of stools - *Genitourinary Denies difficulty urinating - *Musculoskeletal Reports muscle weakness, Denies abnormal walking, Denies body aches - *Neurologic Denies abnormal speech, Denies confusion, Denies unsteadiness [facility] History I have reviewed the patient's past medical history: Yes Medical History: Reports:: Congenital Heart Disease, Coronary Artery Disease, Diabetes Mellitus Type 1, Hepatitis, Hyperlipidemia, Hypertension, Myocardial Infarction Denies:: Cancer, Diabetes Mellitus Type 2, Internal Pacemaker, MRSA, Pulmonary Embolism, Seizures, Transient Ischemic Attacks (TIA) *Have you ever received a pneumonia vaccine?: Yes (02/2019) *Have you received a flu vaccine this season?: Yes (02/2019) Other Medical History: Reports: Other Laterality Cases: Left: Other Other Surgeries: Yes: Cardiac Catheterization, Colonoscopy, Coronary Stent, Splenectomy, Other (splenectomy). No: Pacemaker Amputation: No Fractures: Yes - *Social History Educational Level: Completed GED/General Educational Development Smoking Status: Current every day smoker Tobacco Type: cigarettes # Packs/Day (cigarettes): 2 #Yrs smoked (if former smoker): 50 Alcohol Intake: current Alcohol Intake Frequency:: a few times a week Substance Use Type: marijuana *Occupational Status:: employed Housing: house Household Members: significant other *Travel in the last 8 weeks: None Family Hx:: Cancer, Coronary Artery Disease, Diabetes, Heart Attack, Hyperlipidemia, Alcoholism Meds Home Medications Medication Instructions Recorded Confirmed Type Clopidogrel Bisulfate [Plavix 75mg 75 mg PO DAILY 01/11/19 07/17/19 History Tab] gabapentin 400 mg capsule 400 mg PO BID #60 cap 02/01/19 07/17/19 Rx Simvastatin 5 mg PO HS 03/07/19 07/17/19 History aspirin 81 mg tablet,delayed 81 mg PO DAILY #90 tab 03/27/19 07/17/19 Rx release metformin 1,000 mg tablet 1,000 mg PO BID 90 Days #180 tab 05/14/19 07/17/19 Rx Pantoprazole Sodium [Protonix 40mg 40 mg PO DAILY 30 Days #30 tab 05/28/19 07/17/19 Rx tablet] furosemide 20 mg tablet 20 mg PO DAILY #90 tab 06/04/19 07/17/19 Rx lisinopril 2.5 mg tablet 2.5 mg PO DAILY #90 tab 06/21/19 07/17/19 Rx carvedilol 6.25 mg tablet 6.25 mg PO BID #60 tab 06/25/19 07/17/19 Rx Insulin Glargine,Hum.rec.anlog 20 units SQ BID 07/16/19 07/17/19 History [Lantus Solostar 100 Units/mL 3mL flexpen] Insulin Lispro Protamin/Lispro 10 unit SQ HS 07/16/19 07/17/19 History [Humalog Mix 75/25 100 Units/mL 10mL Vial] Allergies Allergy/AdvReac Type Severity Reaction Status Date / Time Penicillins [PENICILLINS] Allergy Unknown Unknown Verified 07/17/19 08:04 allergy reaction Exam Vital signs and Labs for Last 24 Hours: Temp Pulse Resp BP Pulse Ox 98.0 F 73 18 103/61 L 94 L 07/17/19 07:23 07/17/19 07:23 07/17/19 07:23 07/17/19 07:23 07/17/19 07:23 Laboratory Results - last 24 hr 07/16/19 18:20: Urine Color Yellow, Urine Appearance Clear, Urine pH 6.0, Ur Specific [place] 1.010, Urine Protein Negative, Urine Glucose (UA) 3+, Urine Ketones Negative, Urine Blood Negative, Urine Nitrate Negative, Urine Bilirubin Negative, Urine Urobilinogen 0.2, Ur Leukocyte Esterase Negative, Urine WBC Occasional, Ur Squamous Epith Cells Occasional, Urine Bacteria Trace 07/16/19 18:20: WBC 9.3, RBC 3.24 L, Hgb 10.1 L, Hct 33.4 L, MCV 103.2 H, MCH 31.3 H, MCHC 30.3 L, RDW 14.9, Plt Count 447 H, MPV 8.0, Neut % (Auto) 75.4, Lymph % (Auto) 16.9, [place] % (Auto) 6.2, Eos % (Auto) 0.9, Baso % (Auto) 0.5, Neut # (Auto) 7.1, Lymph # (Auto) 1.6, [place] # (Auto) 0.6, Eos # (Auto) 0.1, Baso # (Auto) 0.0, ESR 93 H 07/16/19 18:20: Sodium 131 L, Potassium 4.5, Chloride 91 L, Carbon Dioxide 30, Anion Gap 14.5, BUN 15, Creatinine 0.70, Estimated Creat Clear 106, Estimated GFR 115, Est GFR ( Amer) 140, Glucose 450 H*, Calcium 9.3, Total Bilirubin 0.3, AST 20, ALT 18, Alkaline Phosphatase 90, Troponin I < 0.01, C-Reactive Protein 43.1 H, Total Protein 6.7, Albumin 3.7, Globulin 3.0, Albumin/Globulin Ratio 1.2, Acetone Level None detected 07/16/19 18:20: Lactate 1.2 07/16/19 18:20: Influenza Type A Ag Negative, Influenza Type B Ag Negative 07/16/19 18:20: Hemoglobin A1c 12.6 H 07/16/19 22:00: POC Glucose 238 H 07/17/19 05:19: POC Glucose 72 07/17/19 08:25: WBC 8.3, RBC 3.11 L, Hgb 9.8 L, Hct 32.1 L, MCV 103.3 H, MCH 31.6 H, MCHC 30.6 L, RDW 15.0, Plt Count 471 H, MPV 7.9, Neut % (Auto) 68.7, Lymph % (Auto) 20.6, [place] % (Auto) 8.6, Eos % (Auto) 1.7, Baso % (Auto) 0.4, Neut # (Auto) 5.7, Lymph # (Auto) 1.7, [place] # (Auto) 0.7, Eos # (Auto) 0.1, Baso # (Auto) 0.0 07/17/19 08:25: Sodium 131 L, Potassium 4.4, Chloride 95 L, Carbon Dioxide 30, Anion Gap 10.4, BUN 11 D, Creatinine 0.60 L, Estimated Creat Clear 120, Estimated GFR 138, Est GFR ( Amer) 167, Glucose 223 H D, Calcium 9.0 I & O for Last 24 hours: Intake & Output 07/14/19 07/15/19 07/16/19 07/17/19 11:59 11:59 11:59 11:59 Intake Total 2720 / 2720 Output Total 350 / 350 Balance 2370 / 2370 Weight 140 lb 9 oz Microbiology Reports for the Last 24 Hours: Microbiology 07/17/19 08:30 Hand,Right - Drainage Gram Stain - Final - Constitutional no acute distress, average body habitus, cooperative - *Routine HEENT Exam Head: Present: normocephalic, atraumatic Eye: Present: EOMI ENT: Present: mucous membranes moist - *Routine Neck Exam Present: supple, full ROM, trachea midline. Absent: lymphadenopathy - *Routine Respiratory Exam Present: CTA bilaterally. Absent: respiratory distress - *Routine Cardiovascular Exam Present: RRR, Normal S1, Normal S2 - *Routine Abdominal Exam Present: soft, normoactive bowel sounds. Absent: organomegaly - *Routine Extremities Exam Comments: On examination of the left hand, he has dressing in place. And examining after removal of the dressings, there is a small wound over the dorsum of the hand at the level of the fourth MCP joint draining lin purulent material. There is surrounding swelling and cellulitis over the dorsum of the hand extending onto the dorsum of the fourth finger. Movements of the fingers are limited with pain. There is diffuse swelling of the hand and fingers. Clinically both the flexor and extensor tendons appear intact. Distal sensation is intact and capillary refill is brisk. He has full range of wrist and forearm movements. No regional lymphadenopathy noted. Diagnostic imaging: X-rays and CT scan of his hand [facility] at [facility] reviewed along with radiologist report and findings noted. These are showing soft tissue swelling without any evidence of bony involvement. - *Routine Skin Exam Present: warm, normal turgor - *Routine Neurological Exam Present: alert, oriented X3, CN II-XII intact - Routine Psychiatric Exam Present: normal affect, cooperative Results - Labs Result Diagrams: 07/17/19 18:42 07/17/19 18:42 Labs: Abnormal lab results 07/16/19 07/16/19 07/16/19 Range/Units 18:20 18:20 18:20 RBC 3.24 L (4.60-6.20) M/mm3 Hgb 10.1 L (14.1-18.0) g/dL Hct 33.4 L (42.0-52.0) % MCV 103.2 H (80-94) fl MCH 31.3 H (27.0-31.2) pg MCHC 30.3 L (31.8-35.4) g/dL Plt Count 447 H (142-424) K/mm3 ESR 93 H (0-20) mm/hr Sodium 131 L (136-145) mmol/L Chloride 91 L (98-107) mmol/L Creatinine (0.66-1.25) mg/dl Glucose 450 H* (74-100) mg/dl POC Glucose (70-110) Hemoglobin A1c 12.6 H (4.0-6.0) % C-Reactive Protein 43.1 H (0-4) mg/L 07/16/19 07/17/19 07/17/19 Range/Units 22:00 08:25 08:25 RBC 3.11 L (4.60-6.20) M/mm3 Hgb 9.8 L (14.1-18.0) g/dL Hct 32.1 L (42.0-52.0) % MCV 103.3 H (80-94) fl MCH 31.6 H (27.0-31.2) pg MCHC 30.6 L (31.8-35.4) g/dL Plt Count 471 H (142-424) K/mm3 ESR (0-20) mm/hr Sodium 131 L (136-145) mmol/L Chloride 95 L (98-107) mmol/L Creatinine 0.60 L (0.66-1.25) mg/dl Glucose 223 H D (74-100) mg/dl POC Glucose 238 H (70-110) Hemoglobin A1c (4.0-6.0) % C-Reactive Protein (0-4) mg/L H & H 07/16/19 07/17/19 Range/Units 18:20 08:25 Hgb 10.1 L 9.8 L (14.1-18.0) g/dL Hct 33.4 L 32.1 L (42.0-52.0) % All other labs normal. Assessment and Plan (1) Cellulitis Current visit: Yes Status: Acute Qualifiers: Laterality: right Category: Medical Code(s): L03.90 - Cellulitis, unspecified (2) Hyperglycemia due to type 2 diabetes mellitus Current visit: Yes Status: Acute Category: Medical Code(s): E11.65 - Type 2 diabetes mellitus with hyperglycemia (3) Tobacco abuse Current visit: No Status: Chronic Category: Medical Code(s): Z72.0 - Tobacco use (4) Diabetes mellitus Current visit: No Status: Chronic Qualifiers: Diabetes mellitus type: type 2 Diabetes mellitus manager long term care insulin use: with manager long term care use Diabetes mellitus complication status: with circulatory complication Diabetes mellitus complication detail: with other circulatory complications Qualified Code(s): E11.59 - Type 2 diabetes mellitus with other circulatory complications Category: Medical Code(s): E11.9 - Type 2 diabetes mellitus without complications - Assessment and plan all Dx Assessment and Plan for all problems:: I have reviewed the clinical and imaging findings with the patient. I have discussed the diagnosis, natural history and management options in detail including both nonsurgical and surgical. Given the swelling, purulent discharge and his uncontrolled diabetes, he is best managed surgically with incision and drainage of the abscess. I have explained the procedure, risks and benefits and alternatives in detail. Following admission yesterday, he was started on IV vancomycin and recommend continuation of the same until microbiology results are available. The procedure of incision and drainage under anesthesia was discussed with the patient. The complications discussed including but are not limited to- infection, bleeding, injury to nerves, blood vessels, tendons, failure to eradicate the infection, incomplete recovery, persistent pain, CRPS, DVT/PE, likely need for further surgery and anesthetic complications including stroke, heart attack and even . Also explained to the patient that I would be leaving the wound partially open for healing by secondary intention. He understands that he may need multiple surgical procedures and in the worst case scenario he may even lose the finger or hand. Patient wished to proceed with the surgical remediation. All the questions were answered and he verbalized a good understanding. The limb was appropriately marked. Patient had breakfast a couple of hours ago and will plan for surgical I&D at the earliest today. Continue medical management as per Dr. Kaye. Thank you for the opportunity to participate in the care of this pleasant patient.
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
--- NOTE | 2019-07-17 17:57 | Progress Note ---
[facility] Anesthesia Record Part I Intake, IV Amount: 700 Estimated blood loss (mL): 2 Urine output (mL): 0 (NM) Blood Products used (#): none Blood Pressure: 92/55 SaO2: 96 Pulse Rate: 61 Respiratory Rate: 10 Temperature: 97.2 F Patient is:: Drowsy, Stable Stable to PACU at:: 17:48 Comments:: JORGE 83
[2019-07-17 18:51] LABS: Basophils % 0.5 % (0.1-2.0); Eosinophils # 0.1 K/mm3 (0.0-0.4); Eosinophils % 1.2 % (0.1-12.0); Hematocrit 31.7 % (42.0-52.0); Hemoglobin 9.9 g/dL (14.1-18.0); Lymphocytes # 1.2 K/mm3 (0.7-4.5); Lymphocytes % 15.5 % (10-50); Mean Corpuscular HGB Conc 31.2 g/dL (31.8-35.4); Mean Corpuscular Volume 102.1 fl (80-94); Mean Platelet Volume 8.4 fl (7.4-10.4); Monocytes # 0.4 K/mm3 (0.1-1.0); Monocytes % 4.6 % (1.7-9.3); Neutrophils # 6.2 K/mm3 (1.8-7.8); Neutrophils % 78.1 % (37.0-80.0); Platelet Count 468 K/mm3 (142-424); Red Cell Distribution Width 14.9 % (11.5-17.5); White Blood Count 7.9 K/mm3 (4.8-10.8)
[2019-07-17 19:00] LABS: Anion Gap 9.3 mEq/L (5-15)
--- NOTE | 2019-07-17 21:05 | Operative Note ---
Date of procedure: 07/17/19 Pre-op Diagnosis:: Abscess, right hand Post-op Diagnosis:: Same Procedure performed:: Incision and drainage of abscess, right hand Surgeon:: Chetan Veloz MD Financial Management Consultant(s):: Laxmi Serrano SILK SPOOLER:: Dino Griffin Anesthesia: LMA Estimated blood loss (mL): 2 Clinical Note:: Patient is a 59-year-old male who developed pain and swelling over the dorsum of the hand following an injury over a week ago. He says his hand got smashed between 2 wooden logs while he was helping his friend to stack up the wood. It has gotten worse over the weekend and started draining purulent discharge. He presented to the ER yesterday from where he was admitted for further management. He reports some chills at home but no rigors or fevers. He is a known type I diabetic which is poorly controlled. Examination revealed an abscess over the dorsum of the hand with purulent discharge through a small puncture hole at the level of the fourth MCP joint. X-rays and CT scan of his hand showed soft tissue swelling without any bony involvement. Patient was admitted for management of the same including IV antibiotics and incision and drainage. Incision and drainage of the abscess was indicated to treat the infection, improve the pain and function and is the standard of care for her management. Please refer to my consult note for full details. Operative findings:: A small abscess over the dorsum of the hand over the distal part of the fourth metatarsal extending onto the dorsum of the MCP joint with puncture wound draining purulent material. Following incision, about 2 mL of lin pus was drained. The extensor tendon of the fourth finger is visible in the base of the abscess cavity but no obvious tendon, bone or joint involvement was noted. There was cellulitis over the dorsum of the hand extending onto the fourth finger. Operative note:: On the day of the procedure the patient was met on the floor and I have discussed the diagnosis, natural history and management options in detail including both nonsurgical and surgical. Following admission yesterday, he was started on IV vancomycin. The procedure of incision and drainage under anesthesia was discussed with the patient. The complications discussed including but are not limited to- infection, bleeding, injury to nerves, blood vessels, tendons, failure to eradicate the infection, incomplete recovery, persistent pain, CRPS, DVT/PE, likely need for further surgery and anesthetic complications including stroke, heart attack and even . Patient wished to proceed with the surgical intervention. All his questions were answered and he verbalized a good understanding. The limb was appropriately marked. Consent form was reviewed and signed. Patient understood the risks, agreed to proceed with surgery, signed the consent form and no guarantees or assurances were given or implied. Patient was brought to the operating room and placed supine on the operating table. The right upper extremity was placed over a hand table. All the bony prominences were appropriately padded. A general anesthesia was administered by the woodwind reeds cutter. A well-padded tourniquet cuff was placed over the upper arm. The right upper extremity was prepped and draped in usual sterile fashion. A preprocedure timeout was performed as per protocol. The limb was elevated but not exsanguinated and tourniquet inflated to 250 mmHg. Please see nursing notes for total tourniquet time. The skin incision was made directly over the swelling incorporating the draining wound on the dorsum of the hand with drainage of lin pus. About 2 mL of pus was drained. A culture swab was obtained. After taking the swab, the abscess cavity was explored digitally and all the adhesions were broken down. The abscess cavity was curetted out and granulation tissue/debris removed. The wound was thoroughly irrigated with normal saline. The abscess cavity was packed with quarter inch iodoform gauze. The tourniquet was released and hemostasis was confirmed. The incision was partially sutured with 4-0 Ethilon interrupted sutures and partly left open for drainage and to heal by secondary intention. Sterile dressings and pressure bandages were applied. Patient was then reversed from the anesthetic and transferred onto the bed. Patient was then safely transported to the postoperative recovery area in stable condition. Patient tolerated the procedure well and there were no immediate complications. The swab, needle and instrument counts were correct at the end of the procedure as per the scrub team. Postoperatively we will continue IV vancomycin and await culture results for any changes as needed. Patient was advised to keep the limb elevated, ice the hand and mobilize the fingers frequently. Condition: stable Disposition: PACU Specimens:: Wound swabs for culture and sensitivity Complications:: None
[2019-07-18 06:18] LABS: Basophils % 0.4 % (0.1-2.0); Eosinophils % 0.1 % (0.1-12.0); Hematocrit 33.1 % (42.0-52.0); Hemoglobin 9.8 g/dL (14.1-18.0); Lymphocytes # 1.4 K/mm3 (0.7-4.5); Mean Corpuscular HGB Conc 29.7 g/dL (31.8-35.4); Mean Corpuscular Volume 106.5 fl (80-94); Mean Platelet Volume 8.3 fl (7.4-10.4); Monocytes # 0.5 K/mm3 (0.1-1.0); Monocytes % 6.3 % (1.7-9.3); Neutrophils # 6.1 K/mm3 (1.8-7.8); Neutrophils % 76.2 % (37.0-80.0); Platelet Count 504 K/mm3 (142-424); Red Blood Count 3.11 M/mm3 (4.60-6.20); Red Cell Distribution Width 14.9 % (11.5-17.5)
[2019-07-18 06:25] LABS: Anion Gap 16.7 mEq/L (5-15); Calcium 8.9 mg/dl (8.4-10.2)
--- NOTE | 2019-07-18 07:46 | Progress Note ---
[facility] Anesthesia Record Part II Discharge Time: 18:18 Destination: Medical Surgical Department PACU nurse assessment reviewed?: Yes Patient Condition:: Good Anesthesia Complications:: None Swallowing reflex intact?: Yes Cyanosis?: No Blood Pressure: 104/57 Pulse Rate: 61 Temperature: 97.6 F Mental Status: Alert & Oriented (drowsy) Pain level:: 0 Nausea and/or vomitting:: None Intake, IV Amount: 0
--- NOTE | 2019-07-18 08:48 | Progress Note ---
Internal Medicine - PN: Subj *Date: 07/18/19 *Time: 08:45 Interval history: 59-year-old male patient sitting up in bed, dressing intact right hand. He was taken to surgery yesterday for incision and drainage of right hand per Ortho. He reports pain is under control, positive neuro/circumflex checks to right hand. Discussed with patient importance of medication compliance, attending medical follow-ups, and dietitian to see today. Awaiting wound culture results Exam Vital signs and Labs for Last 24 Hours: Temp Pulse Resp BP Pulse Ox 98.1 F 84 20 108/65 L 98 07/18/19 08:00 07/18/19 08:00 07/18/19 08:00 07/18/19 08:00 07/18/19 08:00 Laboratory Results - last 24 hr 07/17/19 08:25: WBC 8.3, RBC 3.11 L, Hgb 9.8 L, Hct 32.1 L, MCV 103.3 H, MCH 31.6 H, MCHC 30.6 L, RDW 15.0, Plt Count 471 H, MPV 7.9, Neut % (Auto) 68.7, Lymph % (Auto) 20.6, [place] % (Auto) 8.6, Eos % (Auto) 1.7, Baso % (Auto) 0.4, Neut # (Auto) 5.7, Lymph # (Auto) 1.7, [place] # (Auto) 0.7, Eos # (Auto) 0.1, Baso # (Auto) 0.0 07/17/19 08:25: Sodium 131 L, Potassium 4.4, Chloride 95 L, Carbon Dioxide 30, Anion Gap 10.4, BUN 11 D, Creatinine 0.60 L, Estimated Creat Clear 120, Estimated GFR 138, Est GFR ( Amer) 167, Glucose 223 H D, Calcium 9.0 07/17/19 12:10: POC Glucose 352 H* 07/17/19 16:49: POC Glucose 133 H 07/17/19 17:56: POC Glucose 83 07/17/19 18:42: WBC 7.9, RBC 3.10 L, Hgb 9.9 L, Hct 31.7 L, MCV 102.1 H, MCH 31.8 H, MCHC 31.2 L, RDW 14.9, Plt Count 468 H, MPV 8.4, Neut % (Auto) 78.1, Lymph % (Auto) 15.5, [place] % (Auto) 4.6, Eos % (Auto) 1.2, Baso % (Auto) 0.5, Neut # (Auto) 6.2, Lymph # (Auto) 1.2, [place] # (Auto) 0.4, Eos # (Auto) 0.1, Baso # (Auto) 0.0 07/17/19 18:42: Sodium 134 L, Potassium 4.3, Chloride 98, Carbon Dioxide 31 H, Anion Gap 9.3, BUN 12, Creatinine 0.60 L, Estimated Creat Clear 120, Estimated GFR 138, Est GFR ( Amer) 167, Glucose 71 L D, Calcium 9.0 07/17/19 20:28: POC Glucose 374 H* 07/18/19 05:33: POC Glucose 482 H* 07/18/19 05:54: WBC 8.0, RBC 3.11 L, Hgb 9.8 L, Hct 33.1 L, MCV 106.5 H, MCH 31.6 H, MCHC 29.7 L, RDW 14.9, Plt Count 504 H, MPV 8.3, Neut % (Auto) 76.2, Lymph % (Auto) 17.0, [place] % (Auto) 6.3, Eos % (Auto) 0.1, Baso % (Auto) 0.4, [place] # (Auto) 6.1, Lymph # (Auto) 1.4, [place] # (Auto) 0.5, Eos # (Auto) 0.0, Baso # (Auto) 0.0 07/18/19 05:54: Sodium 129 L, Potassium 4.7, Chloride 92 L, Carbon Dioxide 25, Anion Gap 16.7 H, BUN 18 D, Creatinine 0.60 L, Estimated Creat Clear 124, Estimated GFR 138, Est GFR ( Amer) 167, Glucose 462 H* D, Calcium 8.9 I & O for Last 24 hours: Intake & Output 07/15/19 07/16/19 07/17/19 07/18/19 23:59 23:59 23:59 23:59 Intake Total 1000 / 1880 2420 / 2420 1035 / 1035 Output Total 350 / 350 450 / 450 1800 / 1800 Balance 650 / 1530 1969 / 1969 -765 / -765 Weight 140 lb 9 oz 140 lb 9 oz 146 lb 4 oz Microbiology Reports for the Last 24 Hours: Microbiology 07/17/19 08:30 Hand,Right - Drainage Gram Stain - Final 07/17/19 08:30 Hand,Right - Drainage Wound Culture - Preliminary 07/17/19 17:18 Hand,Right - Abscess Gram Stain - Final 07/17/19 17:18 Hand,Right - Abscess Abscess Culture - Preliminary - Constitutional no acute distress - *Routine HEENT Exam Head: Present: normocephalic, atraumatic. Absent: tenderness of temporal artery Eye: Present: EOMI, PERRL, normal accommodation. Absent: conjunctival icterus, periorbital tenderness ENT: Present: mucous membranes moist. Absent: sinus tenderness - *Routine Neck Exam Present: supple, full ROM. Absent: JVD - *Routine Respiratory Exam Present: CTA bilaterally. Absent: accessory muscle use - *Routine Cardiovascular Exam Present: RRR - *Routine Abdominal Exam Present: soft, normoactive bowel sounds. Absent: tenderness, firm - *Routine Extremities Exam Present: edema, pulses intact. Absent: calf tenderness Comments: R Hand/fingers edematous - Routine Back/Spine/Pelvis Exam Back/Spine: Present: full ROM. Absent: CVA tenderness - *Routine Skin Exam Present: warm, wounds Comments: Dressing applied to right lower forearm/hand - *Routine Neurological Exam Present: alert, oriented X3. Absent: altered mental status - Routine Psychiatric Exam Present: normal affect, normal thought process Assessment and Plan (1) Cellulitis Current visit: Yes Status: Acute Qualifiers: Laterality: right Category: Medical Code(s): L03.90 - Cellulitis, unspecified (2) Hyperglycemia due to type 2 diabetes mellitus Current visit: Yes Status: Acute Category: Medical Code(s): E11.65 - Type 2 diabetes mellitus with hyperglycemia (3) Tobacco abuse Current visit: No Status: Chronic Category: Medical Code(s): Z72.0 - Tobacco use (4) Diabetes mellitus Current visit: No Status: Chronic Qualifiers: Diabetes mellitus type: type 2 Diabetes mellitus assistant prosecuting attorney insulin use: with assistant prosecuting attorney use Diabetes mellitus complication status: with circulatory complication Diabetes mellitus complication detail: with other circulatory complications Qualified Code(s): E11.59 - Type 2 diabetes mellitus with other circulatory complications Category: Medical Code(s): E11.9 - Type 2 diabetes mellitus without complications - Assessment and plan all Dx Assessment and Plan for all problems:: Dr. Kaye will round on the patient this afternoon 1. Awaiting wound culture results 2. Dietary disease today
--- NOTE | 2019-07-18 11:03 | Pharmacy Consult Notes ---
- Pharmacy Consult Date: 07/18/19 Time: 10:57 Referring provider: DR. THAO Reason for Consult:: VANCOMYCIN TROUGH LEVEL AND DOSE Allergies and ADEs:: Allergies Allergy/AdvReac Type Severity Reaction Status Date / Time Penicillins [PENICILLINS] Allergy Unknown Unknown Verified 07/17/19 08:04 allergy reaction Home Medications:: Home Medications Medication Instructions Recorded Confirmed Type Clopidogrel Bisulfate [Plavix 75mg 75 mg PO DAILY 01/11/19 07/17/19 History Tab] gabapentin 400 mg capsule 400 mg PO BID #60 cap 02/01/19 07/17/19 Rx Simvastatin 5 mg PO HS 03/07/19 07/17/19 History aspirin 81 mg tablet,delayed 81 mg PO DAILY #90 tab 03/27/19 07/17/19 Rx release metformin 1,000 mg tablet 1,000 mg PO BID 90 Days #180 tab 05/14/19 07/17/19 Rx Pantoprazole Sodium [Protonix 40mg 40 mg PO DAILY 30 Days #30 tab 05/28/19 07/17/19 Rx tablet] furosemide 20 mg tablet 20 mg PO DAILY #90 tab 06/04/19 07/17/19 Rx lisinopril 2.5 mg tablet 2.5 mg PO DAILY #90 tab 06/21/19 07/17/19 Rx carvedilol 6.25 mg tablet 6.25 mg PO BID #60 tab 06/25/19 07/17/19 Rx Insulin Glargine,Hum.rec.anlog 20 units SQ BID 07/16/19 07/17/19 History [Lantus Solostar 100 Units/mL 3mL flexpen] Insulin Lispro Protamin/Lispro 10 unit SQ HS 07/16/19 07/17/19 History [Humalog Mix 75/25 100 Units/mL 10mL Vial] Height: 1.8 m Weight: 66 kg Laboratory Results:: Laboratory Results - last 24 hr 07/17/19 12:10: POC Glucose 352 H* 07/17/19 16:49: POC Glucose 133 H 07/17/19 17:56: POC Glucose 83 07/17/19 18:42: WBC 7.9, RBC 3.10 L, Hgb 9.9 L, Hct 31.7 L, MCV 102.1 H, MCH 31.8 H, MCHC 31.2 L, RDW 14.9, Plt Count 468 H, MPV 8.4, Neut % (Auto) 78.1, Lymph % (Auto) 15.5, [place] % (Auto) 4.6, Eos % (Auto) 1.2, Baso % (Auto) 0.5, Neut # (Auto) 6.2, Lymph # (Auto) 1.2, [place] # (Auto) 0.4, Eos # (Auto) 0.1, Baso # (Auto) 0.0 07/17/19 18:42: Sodium 134 L, Potassium 4.3, Chloride 98, Carbon Dioxide 31 H, Anion Gap 9.3, BUN 12, Creatinine 0.60 L, Estimated Creat Clear 120, Estimated GFR 138, Est GFR ( Amer) 167, Glucose 71 L D, Calcium 9.0 07/17/19 20:28: POC Glucose 374 H* 07/18/19 05:33: POC Glucose 482 H* 07/18/19 05:54: WBC 8.0, RBC 3.11 L, Hgb 9.8 L, Hct 33.1 L, MCV 106.5 H, MCH 31.6 H, MCHC 29.7 L, RDW 14.9, Plt Count 504 H, MPV 8.3, Neut % (Auto) 76.2, Lymph % (Auto) 17.0, [place] % (Auto) 6.3, Eos % (Auto) 0.1, Baso % (Auto) 0.4, Neut # (Auto) 6.1, Lymph # (Auto) 1.4, [place] # (Auto) 0.5, Eos # (Auto) 0.0, Baso # (Auto) 0.0 07/18/19 05:54: Sodium 129 L, Potassium 4.7, Chloride 92 L, Carbon Dioxide 25, Anion Gap 16.7 H, BUN 18 D, Creatinine 0.60 L, Estimated Creat Clear 124, Estimated GFR 138, Est GFR ( Amer) 167, Glucose 462 H* D, Calcium 8.9 07/18/19 09:45: Vancomycin Trough 7.7 Medical History: Reports:: Chronic Obstructive Pulmonary Disease (COPD), Congenital Heart Disease, Coronary Artery Disease, Diabetes Mellitus Type 1, Diabetes Mellitus Type 2, Gastroesophageal Reflux Disease(GERD), Hepatitis, Hyperlipidemia, Hypertension, Myocardial Infarction Denies:: Cancer, Internal Pacemaker, MRSA, Pulmonary Embolism, Seizures, Transient Ischemic Attacks (TIA) Assessment and Plan (1) Cellulitis Current visit: Yes Status: Acute Qualifiers: Laterality: right Category: Medical Code(s): L03.90 - Cellulitis, unspecified (2) Hyperglycemia due to type 2 diabetes mellitus Current visit: Yes Status: Acute Category: Medical Code(s): E11.65 - Type 2 diabetes mellitus with hyperglycemia (3) Tobacco abuse Current visit: No Status: Chronic Category: Medical Code(s): Z72.0 - Tobacco use (4) Diabetes mellitus Current visit: No Status: Chronic Qualifiers: Diabetes mellitus type: type 2 Diabetes mellitus fpc insulin use: with fpc use Diabetes mellitus complication status: with circulatory complication Diabetes mellitus complication detail: with other circulatory complications Qualified Code(s): E11.59 - Type 2 diabetes mellitus with other circulatory complications Category: Medical Code(s): E11.9 - Type 2 diabetes mellitus without complications - Assessment and plan all Dx Assessment and Plan for all problems:: BASED ON PATIENT FACTORS AND VANCOMYCIN TROUGH LEVEL OF 7.7, RECOMMEND CHANGING CURRENT DOSE TO 1,250MG EVERY 8 HOURS. PHARMACY WILL OBTAIN NEXT TROUGH LEVEL PRIOR TO FOURTH DOSE AND ADJUST DOSE APPROPRIATE AT THAT POINT. -LINUS ENGELD
--- NOTE | 2019-07-18 15:03 | Progress Note ---
Subjective Date: 07/18/19 Time: 12:30 Principal diagnosis: Abscess right hand Interval history: Patient is status post incision and drainage abscesses right hand, post op day # 1. Patient says he is doing well and his pain is well controlled with medication. He is eating and drinking well. He says he is able to move all the fingers better than before surgery. No history of any distal tingling or numbness. No history of any fevers, chills or rigors postoperatively. PN: Obj Ex Vital signs: Temp Pulse Resp BP Pulse Ox 97.7 F 80 20 102/65 L 99 07/18/19 12:00 07/18/19 12:00 07/18/19 12:00 07/18/19 12:00 07/18/19 12:00 Narrative: Laboratory Results - last 24 hr 07/17/19 16:49: POC Glucose 133 H 07/17/19 17:56: POC Glucose 83 07/17/19 18:42: WBC 7.9, RBC 3.10 L, Hgb 9.9 L, Hct 31.7 L, MCV 102.1 H, MCH 31. 8 H, MCHC 31.2 L, RDW 14.9, Plt Count 468 H, MPV 8.4, Neut % (Auto) 78.1, Lymph % (Auto) 15.5, [place] % (Auto) 4.6, Eos % (Auto) 1.2, Baso % (Auto) 0.5, Neut # (Auto) 6.2, Lymph # (Auto) 1.2, [place] # (Auto) 0.4, Eos # (Auto) 0.1, Baso # (Auto) 0.0 07/17/19 18:42: Sodium 134 L, Potassium 4.3, Chloride 98, Carbon Dioxide 31 H, Anion Gap 9.3, BUN 12, Creatinine 0.60 L, Estimated Creat Clear 120, Estimated GFR 138, Est GFR ( Amer) 167, Glucose 71 L D, Calcium 9.0 07/17/19 20:28: POC Glucose 374 H* 07/18/19 05:33: POC Glucose 482 H* 07/18/19 05:54: WBC 8.0, RBC 3.11 L, Hgb 9.8 L, Hct 33.1 L, MCV 106.5 H, MCH 31.6 H, MCHC 29.7 L, RDW 14.9, Plt Count 504 H, MPV 8.3, Neut % (Auto) 76.2, Lymph % (Auto) 17.0, [place] % (Auto) 6.3, Eos % (Auto) 0.1, Baso % (Auto) 0.4, Neut # (Auto) 6.1, Lymph # (Auto) 1.4, [place] # (Auto) 0.5, Eos # (Auto) 0.0, Baso # (Auto) 0.0 07/18/19 05:54: Sodium 129 L, Potassium 4.7, Chloride 92 L, Carbon Dioxide 25, Anion Gap 16.7 H, BUN 18 D, Creatinine 0.60 L, Estimated Creat Clear 124, Estimated GFR 138, Est GFR ( Amer) 167, Glucose 462 H* D, Calcium 8.9 07/18/19 09:45: Vancomycin Trough 7.7 07/18/19 11:31: POC Glucose 440 H* Exam: General appearance: alert and active Cardiovascular: regular rate & rhythm Respiratory: clear to auscultation bilaterally ABD: soft, non tender, non-distended, normal bowel sounds. Extremities: The left hand is in surgical dressings. There is minimal soakage of the dressings. His finger swelling has improved compared to yesterday. He has good range of finger movements. Distal neurovascular status is intact. Progress Note: A&P (1) Cellulitis Status: Acute Current Visit: Yes (2) Hyperglycemia due to type 2 diabetes mellitus Status: Acute Current Visit: Yes (3) Tobacco abuse Status: Chronic Current Visit: No (4) Diabetes mellitus Status: Chronic Current Visit: No Assessment and Plan for All Diagnoses:: I have reviewed the surgical procedure on finding with the patient. I advised him to continue elevation and mobilization of the wrist and fingers. From an orthopedic standpoint, patient can be discharged with antibiotics for staph c overage tomorrow after change of dressings. Definitive culture results are likely to be available tomorrow. Patient will follow-up with in the office in 3-4 days time. Continue medical management as per Dr. Kaye.
[2019-07-19 07:08] LABS: Anion Gap 7.6 mEq/L (5-15)
[2019-07-19 07:09] LABS: Calcium 8.6 mg/dl (8.4-10.2)
[2019-07-19 07:14] LABS: Basophils # 0.1 K/mm3 (0-0.2); Basophils % 0.8 % (0.1-2.0); Eosinophils # 0.1 K/mm3 (0.0-0.4); Eosinophils % 1.3 % (0.1-12.0); Hematocrit 31.6 % (42.0-52.0); Hemoglobin 9.5 g/dL (14.1-18.0); Lymphocytes # 2.9 K/mm3 (0.7-4.5); Lymphocytes % 38.8 % (10-50); Mean Corpuscular HGB Conc 30.1 g/dL (31.8-35.4); Mean Corpuscular Volume 104.5 fl (80-94); Mean Platelet Volume 8.2 fl (7.4-10.4); Monocytes # 0.5 K/mm3 (0.1-1.0); Monocytes % 7.1 % (1.7-9.3); Neutrophils # 3.9 K/mm3 (1.8-7.8); Neutrophils % 52.1 % (37.0-80.0); Platelet Count 540 K/mm3 (142-424); Red Blood Count 3.03 M/mm3 (4.60-6.20); White Blood Count 7.6 K/mm3 (4.8-10.8)
--- NOTE | 2019-07-19 08:59 | Progress Note ---
Internal Medicine - PN: Subj *Date: 07/19/19 *Time: 08:57 Interval history: Patient sitting up in bed states no complaints. Exam Vital signs and Labs for Last 24 Hours: Temp Pulse Resp BP Pulse Ox 98.1 F 68 18 116/74 97 07/19/19 07:51 07/19/19 07:51 07/19/19 07:51 07/19/19 07:51 07/19/19 07:51 Laboratory Results - last 24 hr 07/18/19 09:45: Vancomycin Trough 7.7 07/18/19 11:31: POC Glucose 440 H* 07/18/19 16:52: POC Glucose 296 H 07/18/19 21:11: POC Glucose 213 H 07/19/19 05:26: POC Glucose 167 H 07/19/19 06:48: WBC 7.6, RBC 3.03 L, Hgb 9.5 L, Hct 31.6 L, MCV 104.5 H, MCH 31.4 H, MCHC 30.1 L, RDW 15.0, Plt Count 540 H, MPV 8.2, Neut % (Auto) 52.1, Lymph % (Auto) 38.8, [place] % (Auto) 7.1, Eos % (Auto) 1.3, Baso % (Auto) 0.8, Neut # (Auto) 3.9, Lymph # (Auto) 2.9, [place] # (Auto) 0.5, Eos # (Auto) 0.1, Baso # (Auto) 0.1 07/19/19 06:48: Sodium 130 L, Potassium 4.6, Chloride 97 L, Carbon Dioxide 30, Anion Gap 7.6, BUN 14, Creatinine 0.60 L, Estimated Creat Clear 129, Estimated GFR 138, Est GFR ( Amer) 167, Glucose 155 H, Calcium 8.6 I & O for Last 24 hours: Intake & Output 07/16/19 07/17/19 07/18/19 07/19/19 11:59 11:59 11:59 11:59 Intake Total 2720 / 2720 2695 / 2695 4053 / 4053 Output Total 350 / 350 2775 / 2775 2550 / 2550 Balance 2370 / 2370 -80 / -80 1503 / 1503 Weight 140 lb 9 oz 145 lb 8.081 oz 151 lb 3.011 oz Microbiology Reports for the Last 24 Hours: Microbiology 07/17/19 17:18 Hand,Right - Abscess Gram Stain - Final 07/17/19 17:18 Hand,Right - Abscess Abscess Culture - Preliminary 07/17/19 08:30 Hand,Right - Drainage Gram Stain - Final 07/17/19 08:30 Hand,Right - Drainage Wound Culture - Preliminary 07/16/19 18:20 Blood Blood Culture - Preliminary NO GROWTH AFTER 48 HOURS 07/16/19 18:20 Blood Blood Culture - Preliminary NO GROWTH AFTER 48 HOURS - Constitutional no acute distress - *Routine HEENT Exam Head: Present: normocephalic Eye: Present: PERRL ENT: Present: mucous membranes moist - *Routine Neck Exam Present: supple. Absent: lymphadenopathy - *Routine Respiratory Exam Present: CTA bilaterally, wheezes - *Routine Cardiovascular Exam Present: RRR - *Routine Abdominal Exam Present: soft, normoactive bowel sounds. Absent: tenderness - *Routine Extremities Exam Present: normal capillary refill. Absent: cyanosis, clubbing, edema - *Routine Skin Exam Present: warm. Absent: rash Comments: Dressing to right hand clean dry and intact - *Routine Neurological Exam Present: alert, oriented X3 - Routine Psychiatric Exam Present: normal affect Assessment and Plan (1) Cellulitis Current visit: Yes Status: Acute Qualifiers: Laterality: right Category: Medical Code(s): L03.90 - Cellulitis, unspecified (2) Hyperglycemia due to type 2 diabetes mellitus Current visit: Yes Status: Acute Category: Medical Code(s): E11.65 - Type 2 diabetes mellitus with hyperglycemia (3) Tobacco abuse Current visit: No Status: Chronic Category: Medical Code(s): Z72.0 - Tobacco use (4) Diabetes mellitus Current visit: No Status: Chronic Qualifiers: Diabetes mellitus type: type 2 Diabetes mellitus penitentiary insulin use: with penitentiary use Diabetes mellitus complication status: with circulatory complication Diabetes mellitus complication detail: with other circulatory complications Qualified Code(s): E11.59 - Type 2 diabetes mellitus with other circulatory complications Category: Medical Code(s): E11.9 - Type 2 diabetes mellitus without complications - Assessment and plan all Dx Assessment and Plan for all problems:: Rounded with Dr. Kaye all orders per Dr. Kaye Awaiting culture results Will DC IV fluids Per lab I&D should be complete by a.m. possible discharge home in the morning
--- NOTE | 2019-07-19 13:30 | Pharmacy Consult Notes ---
- Pharmacy Consult Date: 07/19/19 Time: 13:29 Referring provider: DR. THAO Reason for Consult:: VANCOMYCIN TROUGH LEVEL Allergies and ADEs:: Allergies Allergy/AdvReac Type Severity Reaction Status Date / Time Penicillins [PENICILLINS] Allergy Unknown Unknown Verified 07/17/19 08:04 allergy reaction Home Medications:: Home Medications Medication Instructions Recorded Confirmed Type Clopidogrel Bisulfate [Plavix 75mg 75 mg PO DAILY 01/11/19 07/17/19 History Tab] gabapentin 400 mg capsule 400 mg PO BID #60 cap 02/01/19 07/17/19 Rx Simvastatin 5 mg PO HS 03/07/19 07/17/19 History aspirin 81 mg tablet,delayed 81 mg PO DAILY #90 tab 03/27/19 07/17/19 Rx release metformin 1,000 mg tablet 1,000 mg PO BID 90 Days #180 tab 05/14/19 07/17/19 Rx Pantoprazole Sodium [Protonix 40mg 40 mg PO DAILY 30 Days #30 tab 05/28/19 07/17/19 Rx tablet] furosemide 20 mg tablet 20 mg PO DAILY #90 tab 06/04/19 07/17/19 Rx lisinopril 2.5 mg tablet 2.5 mg PO DAILY #90 tab 06/21/19 07/17/19 Rx carvedilol 6.25 mg tablet 6.25 mg PO BID #60 tab 06/25/19 07/17/19 Rx Insulin Glargine,Hum.rec.anlog 20 units SQ BID 07/16/19 07/17/19 History [Lantus Solostar 100 Units/mL 3mL flexpen] Insulin Lispro Protamin/Lispro 10 unit SQ HS 07/16/19 07/17/19 History [Humalog Mix 75/25 100 Units/mL 10mL Vial] Height: 1.8 m Weight: 68.578 kg Laboratory Results:: Laboratory Results - last 24 hr 07/18/19 16:52: POC Glucose 296 H 07/18/19 21:11: POC Glucose 213 H 07/19/19 05:26: POC Glucose 167 H 07/19/19 06:48: WBC 7.6, RBC 3.03 L, Hgb 9.5 L, Hct 31.6 L, MCV 104.5 H, MCH 31.4 H, MCHC 30.1 L, RDW 15.0, Plt Count 540 H, MPV 8.2, Neut % (Auto) 52.1, Lymph % (Auto) 38.8, [place] % (Auto) 7.1, Eos % (Auto) 1.3, Baso % (Auto) 0.8, Neut # (Auto) 3.9, Lymph # (Auto) 2.9, [place] # (Auto) 0.5, Eos # (Auto) 0.1, Baso # (Auto) 0.1 07/19/19 06:48: Sodium 130 L, Potassium 4.6, Chloride 97 L, Carbon Dioxide 30, Anion Gap 7.6, BUN 14, Creatinine 0.60 L, Estimated Creat Clear 129, Estimated GFR 138, Est GFR ( Amer) 167, Glucose 155 H, Calcium 8.6 07/19/19 10:55: Vancomycin Trough 15.0 H 07/19/19 12:06: POC Glucose 228 H Medical History: Reports:: Chronic Obstructive Pulmonary Disease (COPD), Congenital Heart Disease, Coronary Artery Disease, Diabetes Mellitus Type 1, Diabetes Mellitus Type 2, Gastroesophageal Reflux Disease(GERD), Hepatitis, Hyperlipidemia, Hypertension, Myocardial Infarction Denies:: Cancer, Internal Pacemaker, MRSA, Pulmonary Embolism, Seizures, Transient Ischemic Attacks (TIA) Assessment and Plan (1) Cellulitis Current visit: Yes Status: Acute Qualifiers: Laterality: right Category: Medical Code(s): L03.90 - Cellulitis, unspecified (2) Hyperglycemia due to type 2 diabetes mellitus Current visit: Yes Status: Acute Category: Medical Code(s): E11.65 - Type 2 diabetes mellitus with hyperglycemia (3) Tobacco abuse Current visit: No Status: Chronic Category: Medical Code(s): Z72.0 - Tobacco use (4) Diabetes mellitus Current visit: No Status: Chronic Qualifiers: Diabetes mellitus type: type 2 Diabetes mellitus ferry terminal agent insulin use: with senior care use Diabetes mellitus complication status: with circulatory complication Diabetes mellitus complication detail: with other circulatory complications Qualified Code(s): E11.59 - Type 2 diabetes mellitus with other circulatory complications Category: Medical Code(s): E11.9 - Type 2 diabetes mellitus without complications - Assessment and plan all Dx Assessment and Plan for all problems:: BASED ON PATIENT FACTORS AND VANCOMYCIN TROUGH LEVEL, RECOMMEND CONTINUING VANCOMYCIN 1250 MG IV Q8H. PHARMACY WILL CONTINUE TO MONITOR DAILY AND ADJUST APPROPRIATE.
--- NOTE | 2019-07-19 17:00 | Progress Note ---
Subjective Date: 07/19/19 Time: 16:30 Principal diagnosis: Abscess right hand Interval history: Patient is status post incision and drainage abscesses right hand, post op day # 2. Patient says he is doing well and his pain is well controlled with medication. He is eating and drinking well. He says he is able to move all the fingers better than yesterday. No history of any distal tingling or numbness. No history of any fevers, chills or rigors postoperatively. PN: Obj Ex Vital signs: Temp Pulse Resp BP Pulse Ox 97.7 F 74 16 101/65 L 100 07/19/19 16:00 07/19/19 16:00 07/19/19 16:00 07/19/19 16:00 07/19/19 16:00 Narrative: Laboratory Results - last 24 hr 07/18/19 16:52: POC Glucose 296 H 07/18/19 21:11: POC Glucose 213 H 07/19/19 05:26: POC Glucose 167 H 07/19/19 06:48: WBC 7.6, RBC 3.03 L, Hgb 9.5 L, Hct 31.6 L, MCV 104.5 H, MCH 31.4 H, MCHC 30.1 L, RDW 15.0, Plt Count 540 H, MPV 8.2, Neut % (Auto) 52.1, Lymph % (Auto) 38.8, [place] % (Auto) 7.1, Eos % (Auto) 1.3, Baso % (Auto) 0.8, Neut # (Auto) 3.9, Lymph # (Auto) 2.9, [place] # (Auto) 0.5, Eos # (Auto) 0.1, Baso # (Auto) 0.1 07/19/19 06:48: Sodium 130 L, Potassium 4.6, Chloride 97 L, Carbon Dioxide 30, Anion Gap 7.6, BUN 14, Creatinine 0.60 L, Estimated Creat Clear 129, Estimated GFR 138, Est GFR ( Amer) 167, Glucose 155 H, Calcium 8.6 07/19/19 10:55: Vancomycin Trough 15.0 H 07/19/19 12:06: POC Glucose 228 H Exam: General appearance: alert and active Cardiovascular: regular rate & rhythm Respiratory: clear to auscultation bilaterally ABD: soft, non tender, non-distended, normal bowel sounds. Extremities: The left hand is in surgical dressings. There is minimal soakage of the dressings. I have changed the dressings today and remove the iodoform gauze packing from the abscess cavity. Sterile nonadherent dressings were applied. There is less erythema and swelling compared to preop. His hand and finger swelling is also improving. He has good range of active finger movements. Distal sensation is intact light touch throughout. Capillary refill is brisk. Progress Note: A&P (1) Cellulitis Status: Acute Current Visit: Yes (2) Hyperglycemia due to type 2 diabetes mellitus Status: Acute Current Visit: Yes (3) Tobacco abuse Status: Chronic Current Visit: No (4) Diabetes mellitus Status: Chronic Current Visit: No Assessment and Plan for All Diagnoses:: I have reviewed the findings with the patient. Preliminary microbiology results showed gram-positive cocci. Identification of the organism and sensitivities are not available yet. Until definitive culture results are available continue vancomycin as ordered. I have advised him to continue elevation and mobilization of the wrist and fingers. From an orthopedic standpoint, patient can be discharged with antibiotics for staph coverage; definitive culture results are likely to be available tomorrow. Patient will follow-up with me in the office in 3-4 days time. Continue medical management as per Dr. Kaye.
[2019-07-20 06:09] LABS: Basophils # 0.1 K/mm3 (0-0.2); Basophils % 1.1 % (0.1-2.0); Eosinophils # 0.2 K/mm3 (0.0-0.4); Eosinophils % 2.4 % (0.1-12.0); Hematocrit 33.2 % (42.0-52.0); Hemoglobin 10.1 g/dL (14.1-18.0); Lymphocytes # 2.4 K/mm3 (0.7-4.5); Lymphocytes % 38.8 % (10-50); Mean Corpuscular HGB Conc 30.4 g/dL (31.8-35.4); Mean Corpuscular Volume 102.3 fl (80-94); Mean Platelet Volume 8.5 fl (7.4-10.4); Monocytes # 0.5 K/mm3 (0.1-1.0); Monocytes % 8.2 % (1.7-9.3); Neutrophils # 3.1 K/mm3 (1.8-7.8); Neutrophils % 49.5 % (37.0-80.0); Platelet Count 564 K/mm3 (142-424); Red Blood Count 3.24 M/mm3 (4.60-6.20); Red Cell Distribution Width 14.6 % (11.5-17.5); White Blood Count 6.3 K/mm3 (4.8-10.8)
[2019-07-20 06:13] LABS: Anion Gap 10.6 mEq/L (5-15)
[2019-07-20 07:51] LABS: Calcium 8.9 mg/dl (8.4-10.2)
--- NOTE | 2019-07-20 09:05 | Discharge Summary ---
General - General Admission date:: 07/16/19 Discharge date: 07/20/19 HPI HPI: 59-year-old gentleman presents the ED complaining of fatigue. Main complaint is his right hand. He states that a week ago Tuesday he was helping a friend stack some wood and his hand got caught between 2 logs and he smashed his hand. He states that since then it has been painful and he is noticed some swelling and some erythema of the hand and also it is now draining purulent discharge. He has had some chills. At home. He did have a temp via EMS at 100.4. Patient denies any nausea or vomiting. Patient also denies any other trauma or any other symptoms (Per Dr. Powers). 59-year-old male patient sitting up in bed, dressing applied to right hand. Dressing removed, wound culture obtained and sent to lab. Patient displays 2 of 4 Kanavel's signs, finger in slight flexion and pain with flexion. Hospital Course Hospital Course: ct hand: IMPRESSION: Cellulitis along the dorsal aspect of the hand at the metacarpal/metacarpophalangeal junction with no evidence of abscess, soft tissue gas, or foreign body. hand x ray: IMPRESSION: Soft tissue swelling. Old 5th metacarpal fracture Consult surgery-see note I&D performed per surgery see note Culture positive for staph epid-discharge home on Keflex 500 mg 3 times a day and clindamycin 300 mg every 8 for 7 days. Patient will follow-up in the [facility] for dressing changes. Follow-up with surgery Objective Vital signs: Temp Pulse Resp BP Pulse Ox 98.0 F 68 20 114/79 100 07/20/19 07:30 07/20/19 07:30 07/20/19 07:30 07/20/19 07:30 07/20/19 07:30 no acute distress - *Routine HEENT Exam Head: Present: normocephalic Eye: Present: EOMI, PERRL ENT: Present: mucous membranes moist - *Routine Neck Exam Present: supple - *Routine Respiratory Exam Present: CTA bilaterally - *Routine Cardiovascular Exam Present: RRR - *Routine Abdominal Exam Present: soft, normoactive bowel sounds. Absent: tenderness - *Routine Extremities Exam Present: normal capillary refill. Absent: cyanosis, clubbing, edema Comments: Dressing to right hand clean dry and intact - *Routine Skin Exam Present: warm, wounds. Absent: rash Comments: Dressing to right hand clean dry and intact - *Routine Neurological Exam Present: alert, oriented X3 - Routine Psychiatric Exam Present: normal affect - Detailed Eye Exam Eyelids: Bilateral normal inspection Results Labs on day of discharge: Labs from last 24 hours 07/20/19 07/20/19 07/20/19 06:29 05:52 05:52 WBC 6.3 RBC 3.24 L Hgb 10.1 L Hct 33.2 L MCV 102.3 H MCH 31.1 MCHC 30.4 L RDW 14.6 Plt Count 564 H MPV 8.5 Neut % (Auto) 49.5 Lymph % (Auto) 38.8 [place] % (Auto) 8.2 Eos % (Auto) 2.4 Baso % (Auto) 1.1 Neut # (Auto) 3.1 Lymph # (Auto) 2.4 [place] # (Auto) 0.5 Eos # (Auto) 0.2 Baso # (Auto) 0.1 Sodium 133 L Potassium 4.6 Chloride 95 L Carbon Dioxide 32 H Anion Gap 10.6 BUN 13 Creatinine 0.60 L Estimated Creat Clear 131 Estimated GFR 138 Est GFR ( Amer) 167 Glucose 217 H D POC Glucose 242 H Calcium 8.9 Vancomycin Trough 07/19/19 07/19/19 07/19/19 20:04 16:31 12:06 WBC RBC Hgb Hct MCV MCH MCHC RDW Plt Count MPV Neut % (Auto) Lymph % (Auto) [place] % (Auto) Eos % (Auto) Baso % (Auto) Neut # (Auto) Lymph # (Auto) [place] # (Auto) Eos # (Auto) Baso # (Auto) Sodium Potassium Chloride Carbon Dioxide Anion Gap BUN Creatinine Estimated Creat Clear Estimated GFR Est GFR ( Amer) Glucose POC Glucose 275 H 409 H* 228 H Calcium Vancomycin Trough 07/19/19 10:55 WBC RBC Hgb Hct MCV MCH MCHC RDW Plt Count MPV Neut % (Auto) Lymph % (Auto) [place] % (Auto) Eos % (Auto) Baso % (Auto) Neut # (Auto) Lymph # (Auto) [place] # (Auto) Eos # (Auto) Baso # (Auto) Sodium Potassium Chloride Carbon Dioxide Anion Gap BUN Creatinine Estimated Creat Clear Estimated GFR Est GFR ( Amer) Glucose POC Glucose Calcium Vancomycin Trough 15.0 H Preliminary micro results at discharge 07/17/19 08:30 Wound Culture - Preliminary Hand,Right - Drainage Gram Positive Cocci Staphylococcus epidermidis 07/17/19 17:18 Abscess Culture - Preliminary Hand,Right - Abscess 07/16/19 18:20 Blood Culture - Preliminary Blood NO GROWTH AFTER 48 HOURS 07/16/19 18:20 Blood Culture - Preliminary Blood NO GROWTH AFTER 48 HOURS - Additional Comments Rounded with Dr. Kaye all orders per Dr. Kaye DS: Diagnosis - Discharge Diagnosis (1) Cellulitis Status: Acute (2) Hyperglycemia due to type 2 diabetes mellitus Status: Acute (3) Tobacco abuse Status: Chronic (4) Diabetes mellitus Status: Chronic Discharge Plan - Patient Discharge Instructions ACTIVITY: Continue current activity DIET: continue same diet Patient Instructions: DI for Cellulitis -- Adult, Cellulitis, DI for Incision and Drainage of a Skin Abscess, DI for Surgical Site Infection, DI for Incision and Drainage - Follow up Plan Follow up with: Chetan Veloz MD [Staff Physician] - 1 week Mykel Kaiser APRN [Nurse Practitioner] - 07/23/19 Disposition: Home, Self-[facility] Medications: Home Medications Medication Instructions Recorded Confirmed Type Clopidogrel Bisulfate [Plavix 75mg 75 mg PO DAILY 01/11/19 07/17/19 History Tab] gabapentin 400 mg capsule 400 mg PO BID #60 cap 02/01/19 07/17/19 Rx Simvastatin 5 mg PO HS 03/07/19 07/17/19 History aspirin 81 mg tablet,delayed 81 mg PO DAILY #90 tab 03/27/19 07/17/19 Rx release metformin 1,000 mg tablet 1,000 mg PO BID 90 Days #180 tab 05/14/19 07/17/19 Rx Pantoprazole Sodium [Protonix 40mg 40 mg PO DAILY 30 Days #30 tab 05/28/19 07/17/19 Rx tablet] furosemide 20 mg tablet 20 mg PO DAILY #90 tab 06/04/19 07/17/19 Rx lisinopril 2.5 mg tablet 2.5 mg PO DAILY #90 tab 06/21/19 07/17/19 Rx carvedilol 6.25 mg tablet 6.25 mg PO BID #60 tab 06/25/19 07/17/19 Rx Insulin Glargine,Hum.rec.anlog 20 units SQ BID 07/16/19 07/17/19 History [Lantus Solostar 100 Units/mL 3mL flexpen] Insulin Lispro Protamin/Lispro 10 unit SQ HS 07/16/19 07/17/19 History [Humalog Mix 75/25 100 Units/mL 10mL Vial] cephALEXin [Keflex 500mg Cap] 500 mg PO TID 5 Days #15 cap 07/20/19 Rx clindamycin HCL [Clindamycin HCl 300 mg PO Q8 5 Days #15 cap 07/20/19 Rx 300mg Cap] Prescriptions/Medication Reconciliation: New cephALEXin [Keflex 500mg Cap] 500 mg PO TID 5 Days #15 cap clindamycin HCL [Clindamycin HCl 300mg Cap] 300 mg PO Q8 5 Days #15 cap Continued aspirin 81 mg tablet,delayed release 81 mg PO DAILY #90 tab furosemide 20 mg tablet 20 mg PO DAILY #90 tab carvedilol 6.25 mg tablet 6.25 mg PO BID #60 tab gabapentin 400 mg capsule 400 mg PO BID #60 cap metformin 1,000 mg tablet 1,000 mg PO BID 90 Days #180 tab lisinopril 2.5 mg tablet 2.5 mg PO DAILY #90 tab Clopidogrel Bisulfate [Plavix 75mg Tab] 75 mg PO DAILY Pantoprazole Sodium [Protonix 40mg tablet] 40 mg PO DAILY 30 Days #30 tab Insulin Glargine,Hum.rec.anlog [Lantus Solostar 100 Units/mL 3mL flexpen] 20 units SQ BID Simvastatin 5 mg PO HS Insulin Lispro Protamin/Lispro [Humalog Mix 75/25 100 Units/mL 10mL Vial] 10 unit SQ HS - Problem Reconciliation Problems Reviewed?: Yes
== END 2019-07-20 11:13 | disposition home or self-care (01) ==
LOC: ER 18:11 → 2ND 18:11
PROVIDERS: ADMIT Internal Medicine Adolescent Medicine; ATTEND Emergency Medicine
CPT/HCPCS: 36415; 71020; 71046; 73130; 73202; 80048; 80053; 80202; 81001; 82009; 82962; 83036; 83605; 84484; 85025; 85651; 86140; 87040; 87070; 87075; 87077; 87186; 87205; 87275; 87276; 93005; 96365; 99283; G0378; J2405; J3370; Q9967

== ENCOUNTER 2019-11-06 22:08 | Inpatient (IN) | payer OTHER, SELFPAY ==
[2019-11-06] VITALS (9 sets, daily range): BP systolic 92–125; BP diastolic 53–78; PULSE 107–118; RESP 18–26; TEMP 36; O2SAT 91–100; BMI 16.2
--- NOTE | 2019-11-06 22:20 | XR_ITS ---
PROCEDURE: XR CHEST PORTABLE CLINICAL HISTORY: SOA COMPARISON: XR CHEST PORTABLE from 05/25/2019 XR CHEST 2V from 07/16/2019 XR CHEST PORTABLE from 08/01/2019 FINDINGS: Normal heart size. Coronary artery stent present on the left. Changes of COPD with increased density in the right perihilar region suggesting right perihilar infiltrate. No acute bony abnormalities. IMPRESSION: COPD with right perihilar infiltrate Dictated by: Dominik Phillips MD 11/07/2019 08:30 Electronically signed by Dominik Phillips MD in [place] 11/07/2019 08:30
--- NOTE | 2019-11-06 22:20 | ECG_ITS ---
APPROVED REPORT Exam: Resting ECG HR:108 bpm ECG Measurements Heart Rate 108 AXES MT 166 P 85 QRSd 90 QRS -48 QT 354 T 83 QTc 474 <Conclusion> Sinus tachycardia Left anterior fascicular block Voltage criteria for left ventricular hypertrophy Possible Inferior infarct, age undetermined Abnormal ECG Electronically signed by : Blake Wick, 11/07/2019 17:08:48
--- NOTE | 2019-11-06 22:26 | [facility].EDAMS ---
ED Disposition Clinical Impression: Hyperkalemia, Diabetes mellitus, insulin dependent (IDDM), uncontrolled, JENS (acute kidney injury), Severe sepsis with acute organ dysfunction, Septic shock DKA (diabetic ketoacidoses) Qualifiers: Diabetes mellitus type: type 1 Diabetes mellitus complication detail: without coma Qualified Code(s): E10.10 - Type 1 diabetes mellitus with ketoacidosis without coma Altered mental status Qualifiers: Altered mental status type: delirium Qualified Code(s): R41.0 - Disorientation, unspecified Decubitus skin ulcer Qualifiers: Pressure injury location: buttock Pressure injury stage: stage 4 Laterality: right Qualified Code(s): L89.314 - Pressure ulcer of right buttock, stage 4 Disposition: Admitted As Inpatient Condition on Discharge: Serious Instructions: DI for Altered Mental Status Referrals: Provider,Referral, MD [Primary Care Provider] - - Critical Care Critical Care Time: Yes Attestation: On 11/06/19, the high probability of a clinically significant, sudden or life threatening deterioration of the following system(s) required my full and direct attention, intervention and personal management. The time I documented below is in addition to time spent performing reported procedures but includes the following listed in this critical care notation. Total Critical Care Time: 60 Vital system(s) involved:: Metabolic Failure My critical care processes included: Assessment & monitoring of V/S, Initial and Re-exams Medical Decision Making - Medical Records Medical records reviewed: Yes: I reviewed the patient's medical records. - Aung Inquiry Pt receiving controlled substance: No Vital Signs: 11/06/19 22:09 11/06/19 22:21 11/06/19 22:31 Temperature 96.8 F L Temperature Source Rectal Pulse Rate [Right] 108 H 110 H 109 H Respiratory Rate 26 H 21 26 H Blood Pressure [Right Arm] 92/62 L 105/53 L 102/61 L Blood Pressure Mean [Right Arm] 72 70 74 Blood Pressure Source [Right Arm] Automatic Cuff Blood Pressure Position [Right Arm] Supine 02 Sat by Pulse Oximetry 100 96 95 Oxygen Delivery Method Aerosol Mask Nasal Cannula Nasal Cannula Oxygen Flow Rate (LPM) 10 2 2 11/06/19 22:38 11/06/19 22:43 11/06/19 22:55 Temperature Temperature Source Pulse Rate [Right] 108 H 107 H 108 H Respiratory Rate 20 21 22 Blood Pressure [Right Arm] 118/65 116/64 120/70 Blood Pressure Mean [Right Arm] 82 81 86 Blood Pressure Source [Right Arm] Blood Pressure Position [Right Arm] 02 Sat by Pulse Oximetry 95 96 93 L Oxygen Delivery Method Nasal Cannula Nasal Cannula Nasal Cannula Oxygen Flow Rate (LPM) 2 2 2 11/06/19 23:05 Temperature Temperature Source Pulse Rate [Right] 111 H Respiratory Rate 24 Blood Pressure [Right Arm] 124/78 Blood Pressure Mean [Right Arm] 93 Blood Pressure Source [Right Arm] Blood Pressure Position [Right Arm] 02 Sat by Pulse Oximetry 91 L Oxygen Delivery Method Nasal Cannula Oxygen Flow Rate (LPM) 2 - Lab Data Lab results reviewed: Yes: I reviewed the patient's lab results. Lab Results 11/06/19 22:09: WBC 11.3 H, RBC 3.91 L, Hgb 11.9 L, Hct 42.8, MCV 109.4 H, MCH 30.4, MCHC 27.8 L, RDW 15.9, Plt Count 516 H, MPV 8.9, Neut % (Auto) 91.7 H, Lymph % (Auto) 4.3 L, [place] % (Auto) 3.6, Eos % (Auto) 0.1, Baso % (Auto) 0.3, Neut # (Auto) 10.3 H, Lymph # (Auto) 0.5 L, [place] # (Auto) 0.4, Eos # (Auto) 0.0, Baso # (Auto) 0.0 11/06/19 22:09: Sodium 136, Potassium 5.9 H, Chloride 93 L, Carbon Dioxide 11 L, Anion Gap 37.9 H, BUN 80 H, Creatinine 2.90 H, Estimated Creat Clear 19, Estimated GFR 22 L, Est GFR ( Amer) 27 L, Glucose 1038 H*, Calcium 8.8, Total Bilirubin 0.7, AST 16 L, ALT 19, Alkaline Phosphatase 128 H, Troponin I < 0.01, Total Protein 7.2, Albumin 4.2, Globulin 3.0, Albumin/Globulin Ratio 1.4 11/06/19 22:09: Lactate 3.2 H 11/06/19 22:09: SARS-CoV-2 IgG Ab (Rapid) Negative, SARS-CoV-2 IgM Ab (Rapid) Negative 11/06/19 22:32: Specimen Source R/f,
[2019-11-06 22:29] LABS: Basophils % 0.3 % (0.1-2.0); Eosinophils % 0.1 % (0.1-12.0); Hematocrit 42.8 % (42.0-52.0); Hemoglobin 11.9 g/dL (14.1-18.0); Lymphocytes # 0.5 K/mm3 (0.7-4.5); Lymphocytes % 4.3 % (10-50); Mean Corpuscular HGB Conc 27.8 g/dL (31.8-35.4); Mean Corpuscular Hemoglobin 30.4 pg (27.0-31.2); Mean Corpuscular Volume 109.4 fl (80-94); Mean Platelet Volume 8.9 fl (7.4-10.4); Monocytes # 0.4 K/mm3 (0.1-1.0); Monocytes % 3.6 % (1.7-9.3); Neutrophils # 10.3 K/mm3 (1.8-7.8); Neutrophils % 91.7 % (37.0-80.0); Platelet Count 516 K/mm3 (142-424); Red Blood Count 3.91 M/mm3 (4.60-6.20); Red Cell Distribution Width 15.9 % (11.5-17.5); White Blood Count 11.3 K/mm3 (4.8-10.8)
[2019-11-06 22:32] LABS: Chloride 93 mmol/L (98-107); Sodium 136 mmol/L (136-145)
[2019-11-06 22:33] LABS: Potassium 5.9 mmoL/L (3.5-5.1)
[2019-11-06 22:34] LABS: ABG Base Excess -17.4 mmol/L (-2.4-2.3); ABG HCO3 10.8 mmhg (22.0-26.0); ABG Oxygen Saturation 98 % (90-100); ABG PCO2 29.3 mmhg (35.0-45.0); ABG PO2 149.2 mmhg (80-100); ABG TCO2 11.7 mmhg (23-27); Allen's Test Y; Oxygen AEROSOL TX %
[2019-11-06 22:35] LABS: Alanine Aminotransferase 19 U/L (12-78); Albumin Level 4.2 g/dl (3.5-5.0); Albumin/Globulin Ratio 1.4 (1.1-1.8); Alkaline Phosphatase 128 U/L (38-126); Anion Gap 37.9 mEq/L (5-15); Aspartate Amino Transferase 16 U/L (17-59); Bilirubin,Total 0.7 mg/dl (0.2-1.3); Carbon Dioxide 11 mmol/L (22.0-30.0); Creatinine Clearance Estimated 19 mL/min (50-200); Estimated Glomerular Filt Rate 22 ml/min (>60); GFR (African American) 27 ML/MIN (>60); Total Protein,Serum 7.2 g/dl (6.3-8.2)
[2019-11-06 22:35] LABS: ABG PH 7.19 mmol/L (7.35-7.45)
[2019-11-06 22:36] LABS: Calcium 8.8 mg/dl (8.4-10.2)
[2019-11-06 22:44] LABS: Microscopic, Urine URINE MICROSCOPIC (MICROSCOPIC)
--- NOTE | 2019-11-06 22:45 | PC.NURSE ---
Pt here via [facility] AMS changes from home, they report a high reading on there glucometer. Pt nonverbal on admission, hypothermic and hyperglycemic. Pt place on Bare hugger and fluid bolus started on admission. Dr Kaye at bedside. Dime size Stage 4 decubitus on cocci.
[2019-11-06 22:54] LABS: Adenovirus,PCR Not Detected (NotDetected); Bordetella Pertussis Not Detected (NotDetected); Chlamydophila Pneumoniae, PCR Not Detected (NotDetected); Coronavirus 19, PCR Not Detected (NotDetected); Coronavirus 229E Not Detected (NotDetected); Coronavirus NL63 Not Detected (NotDetected); Coronavirus OC43 Not Detected (NotDetected); Coronovirus HKU1,PCR Not Detected (NotDetected); Human Metapneumovirus Not Detected (NotDetected); Influenza A, PCR Not Detected (NotDetected); Influenza AH1, 2009 Not Detected (NotDetected); Influenza AH1, PCR Not Detected (NotDetected); Influenza AH3,PCR Not Detected (NotDetected); Influenza B, PCR Not Detected (NotDetected); Mycoplasma Pneumoniae, PCR Not Detected (NotDected); Parainfluenza 1, PCR Not Detected (NotDetected); Parainfluenza 2, PCR Not Detected (NotDetected); Parainfluenza 3, PCR Not Detected (NotDetected); Parainfluenza 4, PCR Not Detected (NotDetected); Respiratory Syncytial Virus Not Detected (NotDetected); Rhinovirus/Enterovirus Not Detected (NotDetected)
[2019-11-06 23:04] LABS: Lactic Acid 3.2 mmol/L (0.7-2.1); MANUAL DIFFERENTIAL MANUAL DIFFERENTIAL (MANUAL DIFF); Troponin I < 0.01 ng/ml (0.00-0.034)
[2019-11-06 23:06] LABS: Blood Urea Nitrogen 80 mg/dl (9-20); Glucose 1038 mg/dl (74-100)
--- NOTE | 2019-11-06 23:06 | PC.NURSE ---
Lab called critical Glucose Dr Kaye notified
--- NOTE | 2019-11-06 23:09 | PC.NURSE ---
Consulted Jermain with Pharmacy for Insulin GTT
[2019-11-06 23:10] LABS: Appearance,Urine CLEAR (Clear); Blood, Urine 1+ (Negative); Color,Urine YELLOW (Yellow); Glucose,Urine (UA) 3+ (Negative); Ketones,Urine 2+ (Negative); Leukocyte Esterase,Urine Negative (Negative); Nitrate,Urine Negative (Negative); PH,Urine 5.5 (5.0-8.5); Protein,Urine 1+ (Negative); Urobilinogen,Urine 0.2 EU/dl (0.2)
[2019-11-06 23:18] LABS: Coronavirus 19 IgG Antibody Negative (Negative); Coronavirus 19 IgM Antibody Negative (Negative)
[2019-11-06 23:20] LABS: Bilirubin,Urine Negative (Negative)
[2019-11-06 23:20] LABS: Acetone, Serum (Rapid) Moderate (None Detect)
[2019-11-06 23:23] LABS: Benzodiazepines Screen,Urine Negative ng/ml (<200)
[2019-11-06 23:24] LABS: Amphetamine/Metha Screen,Urine Negative ng/ml (<1000); Barbiturates Screen,Urine Negative ng/ml (<200)
[2019-11-06 23:25] LABS: Cannabinoid Screen,Urine Negative ng/ml (<50)
[2019-11-06 23:26] LABS: Amorphous Sediment,Urine 1+ /lpf; Bacteria,Urine 1+ /lpf; Cocaine Screen,Urine Negative ng/ml (<300); Methadone Screen,Urine Negative ng/ml (<300); Mucus,Urine 1+ /lpf
[2019-11-06 23:27] LABS: Opiate Screen,Urine Negative ng/ml (<300)
[2019-11-06 23:28] LABS: Phencyclidine Screen,Urine Negative ng/ml (<25)
--- NOTE | 2019-11-06 23:35 | PC.NURSE ---
ABX and dosing per Jermain in pharmacy
--- NOTE | 2019-11-06 23:35 | PC.NURSE ---
Pt more awake and following comands, continues to be non-verbal
[2019-11-06 23:58] LABS: Lymphocytes % 5 % (10-50); Macrocytosis 2+; Monocytes % 3 % (2-9); Neutrophils % 92 % (42-76); Platelet Estimate Normal; Total Cells Counted 100
[2019-11-06 23:59] LABS: Acanthocytes 1+; Ovalocytes 1+
[2019-11-07] VITALS (41 sets, daily range): BP systolic 92–127; BP diastolic 55–69; PULSE 86–137; RESP 14–36; TEMP 36.6–37.3; O2SAT 91–100; BMI 16.9; BMI 17.2; BMI 17.3
--- NOTE | 2019-11-07 00:02 | PC.NURSE ---
ONLY ONE iv PUMP available, Vancomiacin infusion per drip rate calculation of 60 gtt's a minute
--- NOTE | 2019-11-07 00:20 | PC.NURSE ---
bare hugger off pt temp 99.2
--- NOTE | 2019-11-07 00:49 | PC.NURSE ---
report called to Mary Jo STEVENS
--- NOTE | 2019-11-07 00:50 | PC.NURSE ---
Coccyx swabbed for G/S and culture
[2019-11-07 00:54] LABS: Glucose,Random 716 mg/dL (74-100)
--- NOTE | 2019-11-07 01:01 | PC.NURSE ---
PT ARRIVED TO THE FLOOR VIA STRETCHER FROM ED AT 0101.
--- NOTE | 2019-11-07 01:03 | PC.NURSE ---
Pt glucose fell more than 200 in first our, insulin gtt decreased from 7 to 3.5 units/ hr
--- NOTE | 2019-11-07 01:25 | PC.NURSE ---
nurse made aware of respiration rate
[2019-11-07 01:46] LABS: Reflex Lactic Add Lactic Reflex
--- NOTE | 2019-11-07 01:59 | XR_ITS ---
PROCEDURE: XR CHEST PORTABLE CLINICAL HISTORY: SOA Shortness of air COMPARISON: XR CHEST 2V from 07/16/2019 XR CHEST PORTABLE from 08/01/2019 XR CHEST PORTABLE from 11/06/2019 FINDINGS: Normal heart size. Coronary artery stent is present on the left. Patchy density noted in the right suprahilar region suspicious for an area infiltrate. The remaining lungs are clear. No acute bony abnormalities. IMPRESSION: Right suprahilar infiltrate Dictated by: Dominik Phillips MD 11/07/2019 08:29 Electronically signed by Dominik Phillips MD in [place] 11/07/2019 08:29
[2019-11-07 02:31] LABS: Lactic Acid Follow Up (RFLX 1) 1.3 mmol/L (0.7-2.1)
[2019-11-07 02:44] LABS: Glucose,Random 516 mg/dL (74-100)
[2019-11-07 02:45] LABS: Troponin I < 0.01 ng/ml (0.00-0.034)
[2019-11-07 02:45] LABS: Occult Blood,Gastric Fluid Positive (Negative)
[2019-11-07 04:37] LABS: POC Glucose,Bedside 527 (70-110)
[2019-11-07 04:37] LABS: POC Glucose,Bedside 374 (70-110)
[2019-11-07 04:37] LABS: POC Glucose,Bedside 481 (70-110)
[2019-11-07 04:37] LABS: POC Glucose,Bedside 469 (70-110)
--- NOTE | 2019-11-07 04:45 | PC.NURSE ---
shift summary, patient arrived to floor [address] with o2 sat of 77% on 2 l nc. patient vomiting dark colored emesis. mouth suctioned and non rebreather placed on patient. dr. fernandez notified and new orders received and carried out. gastric occult sample sent to lab. patient sats returned to low 90s on non rebreather after several minutes, hr 120s to 130s, rr 30s, dr. fernandez notified and responded to bedside. dr. fernandez assessed patient new orders received and carried out. insulin drip at 3.5 upon arrival to floor at 0100, 0200 insulin drip titrated to 2, 0300 insulin drip titrated to 4, 0400 insulin drip remains at 4. 0300 patient sats have remained high 90s, o2 changed to 50% venturi mask, 0330 sats remain high 90s o2 dropped to 35% venturi mask. 0400 sats have remained high 90s patients o2 dropped down 4 l nc, 0430 o2 sats have remained high 90s o2 decreased to 2 l nc with resp rate 18-20. heart rate now from 104-115. patient has followed commands since arrival to floor but has not spoken, dr. fernandez aware, will continue to monitor.
[2019-11-07 04:51] LABS: Basophils % 0.4 % (0.1-2.0); Eosinophils % 0.7 % (0.1-12.0); Hematocrit 40.5 % (42.0-52.0); Hemoglobin 12.8 g/dL (14.1-18.0); Lymphocytes # 0.3 K/mm3 (0.7-4.5); Lymphocytes % 4.3 % (10-50); Mean Corpuscular HGB Conc 31.5 g/dL (31.8-35.4); Mean Corpuscular Hemoglobin 30.7 pg (27.0-31.2); Mean Corpuscular Volume 97.3 fl (80-94); Mean Platelet Volume 8.4 fl (7.4-10.4); Monocytes # 0.4 K/mm3 (0.1-1.0); Monocytes % 6.9 % (1.7-9.3); Neutrophils # 5.2 K/mm3 (1.8-7.8); Neutrophils % 87.6 % (37.0-80.0); Platelet Count 404 K/mm3 (142-424); Red Blood Count 4.16 M/mm3 (4.60-6.20); Red Cell Distribution Width 16.2 % (11.5-17.5)
--- NOTE | 2019-11-07 05:00 | PC.NURSE ---
patient remains on 2 l nc, patient able to verbalize name
[2019-11-07 05:23] LABS: Chloride 111 mmol/L (98-107); Potassium 4.6 mmoL/L (3.5-5.1); Sodium 145 mmol/L (136-145)
[2019-11-07 05:26] LABS: Anion Gap 20.6 mEq/L (5-15); Blood Urea Nitrogen 71 mg/dl (9-20); Calcium 9.1 mg/dl (8.4-10.2); Carbon Dioxide 18 mmol/L (22.0-30.0); Creatinine Clearance Estimated 35 mL/min (50-200); Estimated Glomerular Filt Rate 41 ml/min (>60); GFR (African American) 50 ML/MIN (>60); Magnesium 2.6 mg/dl (1.6-2.3)
[2019-11-07 05:28] LABS: Glucose 422 mg/dl (74-100)
[2019-11-07 05:45] LABS: Troponin I < 0.01 ng/ml (0.00-0.034)
[2019-11-07 06:47] LABS: POC Glucose,Bedside 332 (70-110)
[2019-11-07 06:47] LABS: POC Glucose,Bedside 301 (70-110)
--- NOTE | 2019-11-07 06:52 | PC.NURSE ---
unable to get admission history fue to patient condition and no family present.
--- NOTE | 2019-11-07 07:26 | PC.NURSE ---
spoke with live in girlfriend. was reported that patient has not been able to take medications for 2 days due to vomiting. reports that emesis has been dark in color. will call later this am with medication list.
--- NOTE | 2019-11-07 07:56 | PC.NURSE ---
0800- fsbg 262, increased insulin drip to 6units/hr per protocol
[2019-11-07 07:59] LABS: POC Glucose,Bedside 262 (70-110)
--- NOTE | 2019-11-07 08:29 | HMH.PHACONS ---
- Pharmacy Consult Date: 11/07/19 Time: 08:29 Referring provider: DR. THAO Reason for Consult:: VANCOMYCIN DOSING Allergies and ADEs:: Allergies Allergy/AdvReac Type Severity Reaction Status Date / Time Penicillins [PENICILLINS] Allergy Unknown Unknown Verified 07/27/19 20:48 allergy reaction Home Medications:: Home Medications Medication Instructions Recorded Confirmed Type Clopidogrel Bisulfate [Plavix 75mg 75 mg PO DAILY 01/11/19 11/06/19 History Tab] gabapentin 400 mg capsule 400 mg PO BID #60 cap 02/01/19 07/27/19 Rx Simvastatin 5 mg PO HS 03/07/19 07/27/19 History furosemide 20 mg tablet 20 mg PO DAILY #90 tab 06/04/19 11/06/19 Rx Insulin Glargine,Hum.rec.anlog 20 units SQ BID 07/16/19 11/06/19 History [Lantus Solostar 100 Units/mL 3mL flexpen] Insulin Lispro Protamin/Lispro 10 unit SQ HS 07/16/19 11/06/19 History [Humalog Mix 75/25 100 Units/mL 10mL Vial] cephALEXin [Keflex 500mg Cap] 500 mg PO TID 5 Days #15 cap 07/20/19 07/27/19 Rx clindamycin HCL [Clindamycin HCl 300 mg PO Q8 5 Days #15 cap 07/20/19 07/27/19 Rx 300mg Cap] lisinopril 2.5 mg tablet 2.5 mg PO DAILY #90 tab 09/12/19 11/06/19 Rx pantoprazole 40 mg tablet,delayed 40 mg PO DAILY 30 Days #30 tab 09/17/19 Rx release Aspirin 81 mg PO DAILY 11/06/19 11/06/19 History Insulin Lispro Protamin/Lispro 27 units SQ DAILY 11/06/19 History [Humalog Mix 75/25 100 Units/mL 10mL Vial] Metformin HCl [Glucophage] 1,000 mg PO DAILY 11/06/19 11/06/19 History carvediloL [Carvedilol 6.25mg Tab] 6.25 mg PO BID 11/06/19 11/06/19 History Height: 1.75 m Weight: 52.787 kg Laboratory Results:: Laboratory Results - last 24 hr 11/06/19 22:09: WBC 11.3 H, RBC 3.91 L, Hgb 11.9 L, Hct 42.8, MCV 109.4 H, MCH 30.4, MCHC 27.8 L, RDW 15.9, Plt Count 516 H, MPV 8.9, Neut % (Auto) 91.7 H, Lymph % (Auto) 4.3 L, [place] % (Auto) 3.6, Eos % (Auto) 0.1, Baso % (Auto) 0.3, Neut # (Auto) 10.3 H, Lymph # (Auto) 0.5 L, [place] # (Auto) 0.4, Eos # (Auto) 0.0, Baso # (Auto) 0.0, Total Counted 100, Neutrophils % (Manual) 92 H, Lymphocytes % (Manual) 5 L, Monocytes % (Manual) 3, Platelet Estimate Normal, RBC Morphology Not Reportable, Macrocytosis 2+, Ovalocytes 1+, Acanthocytes (Spur) 1+ 11/06/19 22:09: Sodium 136, Potassium 5.9 H, Chloride 93 L, Carbon Dioxide 11 L, Anion Gap 37.9 H, BUN 80 H, Creatinine 2.90 H, Estimated Creat Clear 19, Estimated GFR 22 L, Est GFR ( Amer) 27 L, Glucose 1038 H*, Calcium 8.8, Total Bilirubin 0.7, AST 16 L, ALT 19, Alkaline Phosphatase 128 H, Troponin I < 0.01, Total Protein 7.2, Albumin 4.2, Globulin 3.0, Albumin/Globulin Ratio 1.4, Acetone Level Moderate 11/06/19 22:09: Lactate 3.2 H 11/06/19 22:09: SARS-CoV-2 IgG Ab (Rapid) Negative, SARS-CoV-2 IgM Ab (Rapid) Negative 11/06/19 22:32: Specimen Source R/f, O2 % Aerosol tx, ABG pH 7.19 L*, ABG pCO2 29.3 L, ABG pO2 149.2 H, ABG HCO3 10.8 L, ABG Total CO2 11.7 L, ABG O2 Saturation 98, ABG Base Excess -17.4 L, Dominik Test Y 11/06/19 22:37: Urine Color Yellow, Urine Appearance Clear, Urine pH 5.5, Ur Specific [place] 1.020, Urine Protein 1+, Urine Glucose (UA) 3+, Urine Ketones 2+, Urine Blood 1+, Urine Nitrate Negative, Urine Bilirubin Negative, Urine Urobilinogen 0.2, Ur Leukocyte Esterase Negative, Urine RBC 3-5, Urine WBC 5-10, Ur Squamous Epith Cells 5-10, Amorphous Sediment 1+, Urine Bacteria 1+, Urine Mucus 1+ 11/06/19 22:37: Urine Opiates Screen Negative, Urine Methadone Screen Negative, Ur Barbituates Screen Negative, Ur Phencyclidine Scrn Negative, Ur Amphetamines Screen Negative, U Benzodiazepines Scrn Negative, Urine Cocaine Screen Negative, U Marijuana (THC) Screen Negative 11/06/19 22:47: Chlamy pneumoniae PCR Not detected, Adenovirus (PCR) Not detected, B. pertussis DNA (PCR) Not detected, Coronavirus OC43 (PCR) Not detected, Coronavirus HKU1 (PCR) Not detected, Coronavirus 229E (PCR) Not detected, COVID-19 PCR Not detected, Coronavirus NL63 (PCR) Not detected,
--- NOTE | 2019-11-07 08:38 | HMH.PHAINT ---
home medication reconciliation completed using a list from [facility] pharmacy and physician office.
--- NOTE | 2019-11-07 08:43 | XR_ITS ---
PROCEDURE: XR CHEST PORTABLE CLINICAL HISTORY: SOA Shortness of air, possible pneumothorax COMPARISON: XR CHEST PORTABLE from 08/01/2019 XR CHEST PORTABLE from 11/06/2019 XR CHEST PORTABLE from 11/07/2019 FINDINGS: Borderline cardiomegaly without failure. Coronary artery stent present on the left. COPD with right perihilar infiltrate once again noted and may be slightly improved. No acute bony abnormalities. IMPRESSION: COPD with right perihilar infiltrate slightly Dictated by: Dominik Phillips MD 11/07/2019 09:18 Electronically signed by Dominik Phillips MD in [place] 11/07/2019 09:18
--- NOTE | 2019-11-07 08:43 | P.CONPHA_ITS ---
[facility] Pharmacy VTE Monitoring - Patient Demographics Admission date: 11/07/19 Report Date: 11/07/19 Time: 08:43 Allergies/Adverse Reactions: Patient Allergies Penicillins [PENICILLINS] Allergy (Unknown, Verified 07/27/19 20:48) Unknown allergy reaction Height: 1.75 m Weight: 52.787 kg Patient Problems: Current Active Problems DKA (diabetic ketoacidoses) (Acute) Hyperkalemia (Acute) Diabetes mellitus, insulin dependent (IDDM), uncontrolled (Acute) JENS (acute kidney injury) (Acute) Altered mental status (Acute) Decubitus skin ulcer (Acute) Severe sepsis with acute organ dysfunction (Acute) Septic shock (Acute) - VTE Risk Labs: VTE Related Lab Results Hgb 12.8 g/dL (14.1-18.0) L 11/07/19 04:45 Hct 40.5 % (42.0-52.0) L 11/07/19 04:45 Plt Count 404 K/mm3 (142-424) 11/07/19 04:45 BUN 71 mg/dl (9-20) H 11/07/19 04:45 Creatinine 1.70 mg/dl (0.66-1.25) H D 11/07/19 04:45 Estimated Creat Clear 35 mL/min (50-200) 11/07/19 04:45 Clinical Trial Participant: No - Prophylaxis VTE Prophylaxis Ordered?: Yes Types of VTE Prophylaxis: TEDS Knee High
--- NOTE | 2019-11-07 08:44 | HMH.HP ---
*Admission Date: 11/07/19 *Chief complaint: Altered Mental Status *History of present illness: 59-year-old male patient presents emergency room per squad with reports of altered mental status, lives in girlfriend reports he had not taken his medications for 2 to 3 days due to vomiting large amounts of dark contents. Upon presentation patient's glucose was 1038, BUN 80, creatinine 2.9. He was nonverbal upon arrival and was unable to provide any history. He received IV fluids and an insulin drip was started in the ER. This morning BUN was 71 creatinine was 1.7 acetone level was moderate and blood glucose is 400 at 6 AM. After admitting to the floor ER doctor was called for large amount of dark-colored emesis, gastric occult was positive, will consult general surgery for possible EGD. He did present with duct tape over his right hip wound, when removed it revealed a stage IV pressure ulcer, culture was obtained from right hip wound and Rocephin, clindamycin, and vancomycin restarted. Virus panel, COVID-19 negative. At bedside he is nonverbal, but is responsive to pain. He is currently 99% on 2 L oxygen per nasal cannula 11/06/19 CXR: IMPRESSION: COPD with right perihilar infiltrate Dictated by: Phillips He is very familiar to [facility], he has a history of severe noncompliance, with admissions multiple times for DKA, wounds, and not attending follow-up appointments with primary care and Ortho. Recently he arrived in the [facility] emergency room nonresponsive, blood glucose of 1050 and was intubated. He was then transferred to [facility] for higher level of care care [facility] History Medical History: Reports:: Chronic Obstructive Pulmonary Disease (COPD), Congenital Heart Disease, Coronary Artery Disease, Diabetes Mellitus Type 1, Diabetes Mellitus Type 2, Gastroesophageal Reflux Disease(GERD), Hepatitis, Hyperlipidemia, Hypertension, Myocardial Infarction Denies:: Cancer, Internal Pacemaker, MRSA, Pulmonary Embolism, Seizures, Transient Ischemic Attacks (TIA) *Have you ever received a pneumonia vaccine?: No *Have you received a flu vaccine this season?: No Other Medical History: Reports: Other Laterality Cases: Left: Other Other Surgeries: Yes: Cardiac Catheterization, Colonoscopy, Coronary Stent, Splenectomy, Other (splenectomy). No: Pacemaker Amputation: No Fractures: Yes - *Social History Smoking Status: Current every day smoker Tobacco Type: cigarettes # Packs/Day (cigarettes): 2 #Yrs smoked (if former smoker): 50 Alcohol Intake: never Alcohol Intake Frequency:: a few times a week Substance Use Type: marijuana *Occupational Status:: unemployed Housing: house Household Members: significant other *Travel in the last 8 weeks: None Family Hx:: Cancer, Coronary Artery Disease, Diabetes, Heart Attack, Hyperlipidemia, Alcoholism Review of Systems - Review of Systems Review of systems:: unable to obtain - Constitutional Reports weight loss Meds Home Medications Medication Instructions Recorded Confirmed Type Clopidogrel Bisulfate [Plavix 75mg 75 mg PO DAILY 01/11/19 11/06/19 History Tab] gabapentin 400 mg capsule 400 mg PO BID #60 cap 02/01/19 11/07/19 Rx furosemide 20 mg tablet 20 mg PO DAILY #90 tab 06/04/19 11/06/19 Rx Insulin Glargine,Hum.rec.anlog 20 units SQ BID 07/16/19 11/06/19 History [Lantus Solostar 100 Units/mL 3mL flexpen] Insulin Lispro Protamin/Lispro 10 unit SQ HS 07/16/19 11/06/19 History [Humalog Mix 75/25 100 Units/mL 10mL Vial] lisinopril 2.5 mg tablet 2.5 mg PO DAILY #90 tab 09/12/19 11/06/19 Rx pantoprazole 40 mg tablet,delayed 40 mg PO DAILY 30 Days #30 tab 09/17/19 11/07/19 Rx release Aspirin 81 mg PO DAILY 11/06/19 11/06/19 History Insulin Lispro Protamin/Lispro 0 units SQ BID 11/06/19 11/07/19 History [Humalog Mix 75/25 100 Units/mL 10mL Vial] Metformin HCl [Glucophage] 1,000 mg PO BID 11/06/19 11/07/19 History carvediloL [Carvedilol 6.25mg Tab] 6.25 mg
[2019-11-07 09:20] LABS: Acetone, Serum (Rapid) Small (None Detect)
--- NOTE | 2019-11-07 09:22 | HMH.PTWOUND ---
Rehab Inpt Wound Evaluation Rehab IP Wound Evaluation Start: 11/07/19 08:40 Freq: ONCE Status: Active Protocol: Document 11/07/19 09:17 AGNIESZKA (Rec: 11/07/19 09:22 PHORELISHA [id number]) Rehab PT Wound Assessment Subjective Subjective 59 yowm adm to [facility] with dx of DKA and appears somewhat malnourished. RN reports he lives with significant other, but baseline status id otherwise unobtainable due to pt AMS. Wound Right Buttock Wound Type Pressure Ulcer Is This a Chronic Wound Yes Wound Staging Stage III Query Text:Stage I - Unbroken, red skin, no blanching. Stage II - Skin broken, superficial skin loss involving epidermis alone or also dermis. Partial loss of skin layers. Stage III - Pressure area involves epidermis, dermis and subcutaneous tissue, full thickness skin loss. Stage IV - Pressure area involves epidermis, subcutaneous tissue, bone and other supportive tissue. Full thickness skin loss with extensive destruction of underlying tissue and structures. Wound Length (cm) 2.2 Wound Width (cm) 3.0 Wound Depth (cm) 1.1 Wound Bed Appearance Beefy Red Percentage Granulated (%) 100 Wound Margins Description Well Defined Tunneling Position 12 o'clock Tunneling Depth (cm) 7.3 Surrounding Tissue Appearance [place],Purple Wound Drainage Description Serous Drainage Amount Small Drainage Odor No Odor Primary Dressing Hydrocolloid Plan/Recommendation Comment Continue dressing changes as needed, we will evaluate need for wound packing over the next 1-2 days. Will pack wound to decrease tunnelling and absorb drainage as needed. Continue pressure relief as indicated. Eval Complexity Eval Charge Codes 05417 - Moderate Complexity PHYSICIAN CERTIFICATION: I certify the specified therapy services for Erlin Montalvo are required, authorized, and reviewed every 30 days.
--- NOTE | 2019-11-07 10:49 | PC.NURSE ---
called office and spoke with Mari about consult for surgeon alarm installation technician
[2019-11-07 11:17] LABS: POC Glucose,Bedside > 600 (70-110)
--- NOTE | 2019-11-07 12:04 | HMH.GSCON ---
*Admission Date: 11/07/19 *Reason for consult:: Possible upper gastrointestinal hemorrhage *History of present illness: This is a 59-year-old gentleman seen in consultation from the service of Dr. Kaye for possible esophagogastroduodenoscopy. Please see forwarded copy of truncated HPI from admission H&P below. From H&P: 59-year-old male patient presents emergency room per squad with reports of altered mental status, lives in girlfriend reports he had not taken his medications for 2 to 3 days due to vomiting large amounts of dark contents. Upon presentation patient's glucose was 1038, BUN 80, creatinine 2.9. He was nonverbal upon arrival and was unable to provide any history. He received IV fluids and an insulin drip was started in the ER. After admitting to the floor ER doctor was called for large amount of dark-colored emesis, gastric occult was positive, will consult general surgery for possible EGD. He is very familiar to [facility], he has a history of severe noncompliance, with admissions multiple times for DKA, wounds, and not attending follow-up appointments with primary care and Ortho. Recently he arrived in the [facility] emergency room nonresponsive, blood glucose glucose of 1050 and was intubated. He was then transferred to [facility] for higher level of care care Review of Systems - Review of Systems Review of systems:: unable to obtain [facility] History Medical History: Reports:: Chronic Obstructive Pulmonary Disease (COPD), Congenital Heart Disease, Coronary Artery Disease, Diabetes Mellitus Type 1, Diabetes Mellitus Type 2, Gastroesophageal Reflux Disease(GERD), Hepatitis, Hyperlipidemia, Hypertension, Myocardial Infarction Denies:: Cancer, Internal Pacemaker, MRSA, Pulmonary Embolism, Seizures, Transient Ischemic Attacks (TIA) *Have you ever received a pneumonia vaccine?: No *Have you received a flu vaccine this season?: No Other Medical History: Reports: Other Laterality Cases: Left: Other Other Surgeries: Yes: Cardiac Catheterization, Colonoscopy, Coronary Stent, Splenectomy, Other (splenectomy). No: Pacemaker Amputation: No Fractures: Yes - *Social History Smoking Status: Current every day smoker Tobacco Type: cigarettes # Packs/Day (cigarettes): 2 #Yrs smoked (if former smoker): 50 Alcohol Intake: never Alcohol Intake Frequency:: a few times a week Substance Use Type: marijuana *Occupational Status:: unemployed Housing: house Household Members: significant other *Travel in the last 8 weeks: None Family Hx:: Cancer, Coronary Artery Disease, Diabetes, Heart Attack, Hyperlipidemia, Alcoholism Meds Home Medications Medication Instructions Recorded Confirmed Type Clopidogrel Bisulfate [Plavix 75mg 75 mg PO DAILY 01/11/19 11/06/19 History Tab] gabapentin 400 mg capsule 400 mg PO BID #60 cap 02/01/19 11/07/19 Rx furosemide 20 mg tablet 20 mg PO DAILY #90 tab 06/04/19 11/06/19 Rx Insulin Glargine,Hum.rec.anlog 20 units SQ BID 07/16/19 11/06/19 History [Lantus Solostar 100 Units/mL 3mL flexpen] Insulin Lispro Protamin/Lispro 10 unit SQ HS 07/16/19 11/06/19 History [Humalog Mix 75/25 100 Units/mL 10mL Vial] lisinopril 2.5 mg tablet 2.5 mg PO DAILY #90 tab 09/12/19 11/06/19 Rx pantoprazole 40 mg tablet,delayed 40 mg PO DAILY 30 Days #30 tab 09/17/19 11/07/19 Rx release Aspirin 81 mg PO DAILY 11/06/19 11/06/19 History Insulin Lispro Protamin/Lispro 0 units SQ BID 11/06/19 11/07/19 History [Humalog Mix 75/25 100 Units/mL 10mL Vial] Metformin HCl [Glucophage] 1,000 mg PO BID 11/06/19 11/07/19 History carvediloL [Carvedilol 6.25mg Tab] 6.25 mg PO BID 11/06/19 11/06/19 History Atorvastatin Calcium [Lipitor 10mg 5 mg PO HS 11/07/19 11/07/19 History Tab] Multivitamin,Therapeutic 1 tab PO DAILY 11/07/19 11/07/19 History [Thera-Tabs] Allergies Allergy/AdvReac Type Severity Reaction Status Date / Time Penicillins [PENICILLINS] Allergy Unknown Unknown Veri
[2019-11-07 12:24] LABS: Chloride 118 mmol/L (98-107); Potassium 3.8 mmoL/L (3.5-5.1)
[2019-11-07 12:27] LABS: Anion Gap 10.8 mEq/L (5-15); Blood Urea Nitrogen 55 mg/dl (9-20); Calcium 9.2 mg/dl (8.4-10.2); Carbon Dioxide 26 mmol/L (22.0-30.0); Creatinine Clearance Estimated 46 mL/min (50-200); Estimated Glomerular Filt Rate 57 ml/min (>60); GFR (African American) 68 ML/MIN (>60); Glucose 118 mg/dl (74-100)
[2019-11-07 12:30] LABS: Sodium 151 mmol/L (136-145)
[2019-11-07 12:38] LABS: Acetone, Serum (Rapid) None Detected (None Detect)
--- NOTE | 2019-11-07 13:45 | PC.NURSE ---
pt had consult with wound eval. placed on pressure relieving device for stage 3 pressure ulcer
--- NOTE | 2019-11-07 14:21 | PC.NURSE ---
0900- fsbg 172, no change to insulin gtt 1000- fsbg 158, no change to insulin gtt 1100- fsbg 105, decrease insulin gtt to 4units/hr 1200- fsbg 106, decrease insulin gtt to 2units/hr 1243- reported serum acetone negative at this time, received order to dc insulin drip and start patient on medium intensity sliding scale with fingersticks ACHS
[2019-11-07 15:03] LABS: POC Glucose,Bedside 158 (70-110)
[2019-11-07 15:03] LABS: POC Glucose,Bedside 172 (70-110)
[2019-11-07 15:03] LABS: POC Glucose,Bedside 106 (70-110)
[2019-11-07 15:03] LABS: POC Glucose,Bedside 105 (70-110)
[2019-11-07 16:34] LABS: POC Glucose,Bedside 273 (70-110)
--- NOTE | 2019-11-07 17:32 | PC.NURSE ---
Patient is resting in bed at this time, speech therapy at bedside completing swallow eval r/t possible aspiration and patient coughing with each sip of liquids, has been weaned from insulin drip, is currently on medium intensity sliding scale per md order, pt has been weaned to RA this shift and tolerated well, room air sat 99% at this time, stage III decubitus on right buttocks evaluated this shift by PT for wound care reccomendation, hydrocolloid dsg placed and secured with medipore tape, pictures and measurements placed on chart, pt is much more alert this afternoon, can verbalize discomfort, can state his name and , has been nsr to st on telemetry, no s/s of distress noted at this time, vss, will continue to monitor.
--- NOTE | 2019-11-07 18:44 | HMH.SLDYSPHA ---
Speech & Language Evaluation Speech/Language Dysphagia Evaluation Start: 11/07/19 18:07 Freq: ONCE Status: Active Protocol: Document 11/07/19 17:45 CMAY (Rec: 11/07/19 18:29 CMAY [id number]) Dysphagia Assess/Goals/Plan Assessment Date of Evaluation: 11/07/19 Evaluation Type Initial Certification Assessment/Problems Dysphagia Does Patient Qualify for Service Yes Qualify/Failure Comment Patient does not qualify for ST services at this time based on the results of today's evaluation. ST will monitor patient and check-in with NSG. Dietary changes were implemented for patient's safety during intake. Recommendations PHYSICIAN CERTIFICATION: The specified therapy services are required, authorized, and reviewed every 30 days. Diet Recommendations Pureed Liquid Type Recommendations [place] Consistency SL Swallow Guidelines Standard Aspiration Prec.,Oral care pre/post meals Dysphagia Swallow Precautions/Strategies Sitting Upright (90 deg),Small Bites and Sips Plan Pt/Guardian verbally ack understanding Yes of dx/prognosis/goals G -code Required No Education Instructions provided Education provided to patient regarding swallowing safety strategies to implement such as taking small bites/sips, sitting upright during intake and sitting upright for at least 45 minutes following intake. Pt/Caregiver able to recall information Able to recall/restate Speech & Language HPI Language Primary Language British General Information General Current Food Consistancy NPO Dentition Poor Dentition,Edentulous Facial Symmetry Symmetrical Patient Orientation Person Ability to Follow Directions Excellent Communication Ability No Impairment Dysphagia:Food Presentation Evaluation Food Type Pureed,Mechanical Soft,Liquid, Pudding Normal/Thin Liquid Response Coughing after swallow,Wet voice Pudding Consistency Liquid Response Residual on tongue Dysphagia Evaluation Mechanical Soft Difficulty chewing,Multiple Food Behavior Response swallow attempts,Residual on tongue Dysphagia Evaluation Summary NSG stated that patient has been coughing following
--- NOTE | 2019-11-07 19:12 | PC.NURSE ---
report given helen galindo
--- NOTE | 2019-11-07 20:48 | PC.NURSE ---
Pt's room air sat at rest = 100%. Rt gave pt a neb treatment with sodium chloride to induce SPT. RT sent SPT to lab at 2030 from second floor.
[2019-11-07 20:57] LABS: Chloride 116 mmol/L (98-107); Potassium 4.3 mmoL/L (3.5-5.1); Sodium 146 mmol/L (136-145)
[2019-11-07 21:00] LABS: Anion Gap 17.3 mEq/L (5-15); Blood Urea Nitrogen 45 mg/dl (9-20); Carbon Dioxide 17 mmol/L (22.0-30.0); Creatinine Clearance Estimated 60 mL/min (50-200); Estimated Glomerular Filt Rate 76 ml/min (>60); GFR (African American) 93 ML/MIN (>60)
[2019-11-07 21:01] LABS: Glucose 392 mg/dl (74-100)
[2019-11-07 21:15] LABS: POC Glucose,Bedside 374 (70-110)
[2019-11-08] VITALS (20 sets, daily range): BP systolic 98–124; BP diastolic 56–74; PULSE 68–89; RESP 16–20; TEMP 36.3–37.4; O2SAT 94–100; BMI 18.6
[2019-11-08 05:49] LABS: Basophils % 0.3 % (0.1-2.0); Eosinophils # 0.1 K/mm3 (0.0-0.4); Eosinophils % 0.7 % (0.1-12.0); Hematocrit 29.7 % (42.0-52.0); Hemoglobin 9.1 g/dL (14.1-18.0); Lymphocytes # 0.9 K/mm3 (0.7-4.5); Lymphocytes % 7.2 % (10-50); Mean Corpuscular HGB Conc 30.5 g/dL (31.8-35.4); Mean Corpuscular Hemoglobin 30.4 pg (27.0-31.2); Mean Corpuscular Volume 99.8 fl (80-94); Mean Platelet Volume 8.3 fl (7.4-10.4); Monocytes # 0.4 K/mm3 (0.1-1.0); Neutrophils # 11.4 K/mm3 (1.8-7.8); Neutrophils % 88.8 % (37.0-80.0); Platelet Count 361 K/mm3 (142-424); Red Blood Count 2.98 M/mm3 (4.60-6.20); Red Cell Distribution Width 16.7 % (11.5-17.5); White Blood Count 12.8 K/mm3 (4.8-10.8)
[2019-11-08 05:54] LABS: POC Glucose,Bedside 393 (70-110)
[2019-11-08 05:58] LABS: MANUAL DIFFERENTIAL MANUAL DIFFERENTIAL (MANUAL DIFF)
[2019-11-08 06:19] LABS: Chloride 116 mmol/L (98-107); Potassium 4.3 mmoL/L (3.5-5.1); Sodium 144 mmol/L (136-145)
[2019-11-08 06:22] LABS: Anion Gap 17.3 mEq/L (5-15); Blood Urea Nitrogen 37 mg/dl (9-20); Calcium 9.1 mg/dl (8.4-10.2); Carbon Dioxide 15 mmol/L (22.0-30.0); Creatinine Clearance Estimated 66 mL/min (50-200); Estimated Glomerular Filt Rate 86 ml/min (>60); GFR (African American) 105 ML/MIN (>60); Glucose 389 mg/dl (74-100)
[2019-11-08 07:35] LABS: Anisocytosis 1+; Hypochromasia 1+; Lymphocytes % 8 % (10-50); Macrocytosis 1+; Monocytes % 5 % (2-9); Neutrophils % 84 % (42-76); Platelet Estimate Normal; Total Cells Counted 100; Toxic Granulation 1+
--- NOTE | 2019-11-08 09:04 | HMH.ACPN2 ---
Internal Medicine - PN: Subj *Date: 11/08/19 *Time: 09:04 Interval history: pt requesting something to drink. Pt states he has not been able to eat for awhile due to not having food in the home. Exam Vital signs and Labs for Last 24 Hours: Temp Pulse Resp BP Pulse Ox 98.5 F 73 16 108/61 L 100 11/08/19 07:36 11/08/19 06:00 11/08/19 06:00 11/08/19 06:00 11/08/19 06:00 Laboratory Results - last 24 hr 11/07/19 00:20: POC Glucose > 600 H* 11/07/19 08:55: Acetone Level Small 11/07/19 09:18: POC Glucose 172 H 11/07/19 10:15: POC Glucose 158 H 11/07/19 11:06: POC Glucose 105 11/07/19 12:00: Sodium 151 H*, Potassium 3.8, Chloride 118 H, Carbon Dioxide 26 D, Anion Gap 10.8, BUN 55 H, Creatinine 1.30 H D, Estimated Creat Clear 46, Estimated GFR 57 L, Est GFR ( Amer) 68 D, Glucose 118 H D, Calcium 9.2, Acetone Level None detected 11/07/19 12:12: POC Glucose 106 11/07/19 16:16: POC Glucose 273 H 11/07/19 20:47: Sodium 146 H, Potassium 4.3, Chloride 116 H, Carbon Dioxide 17 L D, Anion Gap 17.3 H, BUN 45 H, Creatinine 1.00 D, Estimated Creat Clear 60, Estimated GFR 76, Est GFR ( Amer) 93 D, Glucose 392 H D, Calcium 9.0 11/07/19 20:47: POC Glucose 374 H* 11/08/19 05:34: WBC 12.8 H D, RBC 2.98 L D, Hgb 9.1 L, Hct 29.7 L, MCV 99.8 H, MCH 30.4, MCHC 30.5 L, RDW 16.7, Plt Count 361, MPV 8.3, Neut % (Auto) 88.8 H, Lymph % (Auto) 7.2 L, [place] % (Auto) 3.0, Eos % (Auto) 0.7, Baso % (Auto) 0.3, Neut # (Auto) 11.4 H, Lymph # (Auto) 0.9, [place] # (Auto) 0.4, Eos # (Auto) 0.1, Baso # (Auto) 0.0, Total Counted 100, Neutrophils % (Manual) 84 H, Band Neutrophils % 3.0, Lymphocytes % (Manual) 8 L, Monocytes % (Manual) 5, Toxic Granulation 1+, Platelet Estimate Normal, Hypochromasia 1+, Anisocytosis 1+, Macrocytosis 1+ 11/08/19 05:34: Sodium 144, Potassium 4.3, Chloride 116 H, Carbon Dioxide 15 L, Anion Gap 17.3 H, BUN 37 H, Creatinine 0.90, Estimated Creat Clear 66, Estimated GFR 86, Est GFR ( Amer) 105, Glucose 389 H, Calcium 9.1 11/08/19 05:40: POC Glucose 393 H* I & O for Last 24 hours: Intake & Output 11/05/19 11/06/19 11/07/19 11/08/19 11:59 11:59 11:59 11:59 Intake Total 3745 / 3745 5870 / 5870 Output Total 1715 / 1715 1750 / 1750 Balance 2029 / 2029 4120 / 4120 Weight 116 lb 6 oz 125 lb 9 oz Microbiology Reports for the Last 24 Hours: Microbiology 11/07/19 00:48 Buttock - Other Gram Stain - Final 11/07/19 00:48 Buttock - Other Wound Culture - Preliminary 11/07/19 20:30 Sputum - Expectorated Sputum Gram Stain - Final - Constitutional no acute distress, thin, chronically ill appearing - *Routine HEENT Exam Head: Present: normocephalic Eye: Present: PERRL ENT: Present: mucous membranes moist - *Routine Neck Exam Present: supple. Absent: lymphadenopathy - *Routine Respiratory Exam Present: CTA bilaterally, diminished air movement - *Routine Cardiovascular Exam Present: RRR - *Routine Abdominal Exam Present: soft, normoactive bowel sounds, surgical scars. Absent: tenderness - *Routine Extremities Exam Present: normal capillary refill. Absent: cyanosis, clubbing, edema - *Routine Skin Exam Present: warm, wounds. Absent: rash Comments: stage 4 ulcer to rt hip, draining copious amts of yellow drainage - *Routine Neurological Exam Present: alert, oriented X3 - Routine Psychiatric Exam Present: normal affect Assessment and Plan (1) Secondary DM with DKA, uncontrolled Current visit: Yes Status: Acute Category: Medical Code(s): E13.10 - Other specified diabetes mellitus with ketoacidosis without coma (2) SIRS (systemic inflammatory response syndrome) Current visit: Yes Status: Acute Category: Medical Code(s): R65.10 - Systemic inflammatory response syndrome (SIRS) of non-infectious origin without acute organ dysfunction (3) Stage 4 decubitus ulcer with suspected deep tissue injury Current visit: Yes Status: Acute Category: Medical Code
--- NOTE | 2019-11-08 10:15 | SW/DCPLANNER ---
Addendum entered by Savana De Jesus 11/08/19 18:37: I spoke with patient again this evening regarding discharge plans. Patient continues to be unsure of plan and asked that I give him more time to think about it. Patient stated that he prefers to discharge home. I will follow up with patient in the AM. Original Note: I have spoke with this patient regarding discharge plans once medically stable. Patient is admitted to [facility] for DKA and stage 4 decubitus ulcer. Patient states that he has no electric at his house nor any food at this time. Patient stated that he intends on returning home at time of discharge because his girlfriend resides with him. I did explain to patient different options: placement and home health services. At this time patient stated that he does not want placement because he wants to return home with his girlfriend and is not sure about home health because he states his house is a mess. I explained to patient that he will need assistance at home and I will return after EGD to discuss further discharge plans. Patient is not medically stable for discharge at this time.
--- NOTE | 2019-11-08 11:42 | PC.NURSE ---
Pt off floor for procedure in surgery.
--- NOTE | 2019-11-08 12:51 | P.PN_ITS ---
[facility] Anesthesia Checklist - Patient Identification Patient Identification: Arm Band, Verbal (Name & ) - Structural Data Admitted From: Inpatient Planned Operative Procedure/s: EGD Consent for Planned Operative Procedure(s) Verified: Yes Verified Documents: Surgical Consent, History and Physical - NPO Status Verified Time NPO: 00:00 - Chart Verification Results Verified: CBC, BMP, UA - Additional verifications Anesthesia Reactions: No - Airway Assessment C-Spine Mobility Assessed: Yes TMJ Mobility Assessed: Yes Dentition: Edentulous - Neurological Assessment Level of Consciousness: Awake, Alert, Appropriate, Follows Commands Hx Seizures: No Numbness or tingling in extremities: No - Anesthesia Plan Anesthesia Risk discussed: Yes Anesthesia Plan: Verified ASA Class: IV Anesthesia Type: MAC [facility] History I have reviewed the patient's past medical history: Yes Medical History: Reports:: Chronic Obstructive Pulmonary Disease (COPD), Congenital Heart Disease, Coronary Artery Disease, Diabetes Mellitus Type 1, Diabetes Mellitus Type 2, Gastroesophageal Reflux Disease(GERD), Hepatitis, Hyperlipidemia, Hypertension, Myocardial Infarction Denies:: Cancer, Internal Pacemaker, MRSA, Pulmonary Embolism, Seizures, Transient Ischemic Attacks (TIA) *Have you ever received a pneumonia vaccine?: No *Have you received a flu vaccine this season?: No Other Medical History: Reports: Other Anesthesia experience/problems:: None Laterality Cases: Left: Other Other Surgeries: Yes: Cardiac Catheterization, Colonoscopy, Coronary Stent, Splenectomy, Other (splenectomy). No: Pacemaker Amputation: No Fractures: Yes - *Social History Smoking Status: Current every day smoker Tobacco Type: cigarettes # Packs/Day (cigarettes): 2 #Yrs smoked (if former smoker): 50 Alcohol Intake: never Alcohol Intake Frequency:: a few times a week Substance Use Type: marijuana *Occupational Status:: unemployed Housing: house Household Members: significant other *Travel in the last 8 weeks: None Family Hx:: Cancer, Coronary Artery Disease, Diabetes, Heart Attack, Hyperlipidemia, Alcoholism
--- NOTE | 2019-11-08 13:08 | HMH.SCOPE ---
- Procedure: Date: 11/08/19 Procedure Performed:: Esophagogastroduodenoscopy with biopsy Indications:: Upper gastrointestinal hemorrhage Performing Provider:: Lamin Braswell MD Referring Provider:: Dr. Kaye Sedation:: Monitored anesthesia care Procedure:: After informed consent was obtained the patient was taken to the endoscopy suite. Sedation ensued after the patient was transferred to the left lateral decubitus position. Pulse, blood pressure, and oxygen saturation were monitored throughout the procedure. The endoscope was advanced beyond the duodenal bulb. Retroflexion within the gastric lumen was accomplished. The gastroscope was carefully removed and the patient was transferred to recovery in stable condition. Please see findings and specimens below for detail. Findings:: Fairly severe esophageal candidiasis Gastroesophageal junction at 40 cm Patchy gastritis No obvious ulcerations noted (limited gastric distention may limit visualization of small linear ulcerations) No active bleeding or obvious old blood (did have apparent bilious fluid in stomach that could have been old blood ) Lobulated antral lesion (seemingly submucosal) Specimens:: Multiple biopsies of lobulated antral lesion Recommendations:: Follow-up pathology Diflucan ordered (Itraconazole may be preferred but not on formulary) Complications:: No immediate Estimated blood obtained (mL): 1
--- NOTE | 2019-11-08 13:24 | PC.NURSE ---
Pt back to floor from procedure
[2019-11-08 13:50] LABS: POC Glucose,Bedside 296 (70-110)
[2019-11-08 17:07] LABS: POC Glucose,Bedside 335 (70-110)
--- NOTE | 2019-11-08 17:58 | PC.NURSE ---
Addendum entered by Kerwin Merchant CNA 11/08/19 18:22: Pressure ulcer is a stage 3. Original Note: Patient was negative for bleeding following EGD, esophageal candiasis was found and is being treated with Fluconazole. Jaramillo has been removed and patient is now using the urinal for elimination, patients vital signs have remained stable for duration of shift and patient has not complained of pain, patient has a large stage 2 pressure ulcer on left buttocks that has signs of tunneling. Will continue to monitor
--- NOTE | 2019-11-08 20:46 | PC.NURSE ---
Pt's room air O2 sat at rest = 96%.
[2019-11-08 21:18] LABS: POC Glucose,Bedside 441 (70-110)
[2019-11-09] VITALS: BP 103/57; PULSE 70; RESP 17; TEMP 36.8; O2SAT 95
[2019-11-09 04:00] VITALS: BP 102/50; PULSE 64; PULSE 70; RESP 16; TEMP 36.6; O2SAT 93
--- NOTE | 2019-11-09 04:40 | PC.NURSE ---
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
[2019-11-09 05:03] LABS: POC Glucose,Bedside 89 (70-110)
[2019-11-09 05:08] VITALS: BMI 18.6
[2019-11-09 06:41] LABS: Basophils % 0.2 % (0.1-2.0); Eosinophils # 0.2 K/mm3 (0.0-0.4); Hematocrit 27.9 % (42.0-52.0); Hemoglobin 8.7 g/dL (14.1-18.0); Lymphocytes # 1.8 K/mm3 (0.7-4.5); Lymphocytes % 12.1 % (10-50); Mean Corpuscular HGB Conc 31.2 g/dL (31.8-35.4); Mean Corpuscular Hemoglobin 30.4 pg (27.0-31.2); Mean Corpuscular Volume 97.5 fl (80-94); Mean Platelet Volume 8.8 fl (7.4-10.4); Monocytes # 0.6 K/mm3 (0.1-1.0); Monocytes % 3.9 % (1.7-9.3); Neutrophils # 12.1 K/mm3 (1.8-7.8); Neutrophils % 82.9 % (37.0-80.0); Platelet Count 289 K/mm3 (142-424); Red Blood Count 2.86 M/mm3 (4.60-6.20); Red Cell Distribution Width 16.9 % (11.5-17.5); White Blood Count 14.5 K/mm3 (4.8-10.8)
[2019-11-09 06:56] LABS: Chloride 115 mmol/L (98-107); Potassium 3.2 mmoL/L (3.5-5.1); Sodium 143 mmol/L (136-145)
[2019-11-09 06:59] LABS: Blood Urea Nitrogen 25 mg/dl (9-20); Creatinine Clearance Estimated 92 mL/min (50-200); Estimated Glomerular Filt Rate 115 ml/min (>60); GFR (African American) 140 ML/MIN (>60)
[2019-11-09 07:00] LABS: Anion Gap 5.2 mEq/L (5-15); Calcium 8.5 mg/dl (8.4-10.2); Carbon Dioxide 26 mmol/L (22.0-30.0); Glucose 58 mg/dl (74-100)
[2019-11-09 08:00] VITALS: BP 129/68; PULSE 74; PULSE 80; RESP 18; TEMP 36.7; O2SAT 94
--- NOTE | 2019-11-09 10:41 | SW/DCPLANNER ---
Addendum entered by [facility] 11/12/19 09:13: I have spoke with Sindy from [facility] to confirm referral was received and services will begin today. I have also followed up with [facility] regarding ID# and this case did meet criteria. APS will follow up with this patient at home. Addendum entered by [facility] 11/09/19 13:52: ID# is [id number]. Patient information has also been faxed to [facility] in [place]. Addendum entered by [facility] 11/09/19 13:35: Patient has stated that he does have a ride home for today. I will also contact APS regarding home situation for this patient. Addendum entered by [facility] 11/09/19 12:20: I have also made patient aware that he will need to get in contact with his girlfriend regarding transportation. Patient is not a candidate for [facility] due to having a vehicle in his name....patient has been made aware of this situation numerous times. Patient has stated that his girlfriends friend should be able to transport. Original Note: Spoke with this patient again this morning regarding discharge plans. I did speak with patient during morning rounds with Leandra HUDSON and [employer]er. Patient stated that he has received him Stimulus check today and will be able to buy groceries and prefers to discharge home. Patient has refused placement at this time. Patient is open to home health services and this will be set up with [facility] in [place]. I will fax them patient referral once order is received and patient is medically stable for discharge. Patient has voiced to Leandra that if he is not discharged today he will sign out AMA. Patient is non compliant and only wanting to discharge home. I will continue to follow up with this patient.
[2019-11-09 10:47] LABS: POC Glucose,Bedside 242 (70-110)
[2019-11-09 12:00] VITALS: BP 128/79; PULSE 63; PULSE 70; RESP 16; TEMP 36.9; O2SAT 95
--- NOTE | 2019-11-09 12:50 | HMH.DCSUM ---
General - General Admission date:: 11/07/19 Discharge date: 11/09/19 HPI HPI: 59-year-old male patient presents emergency room per squad with reports of altered mental status, lives in girlfriend reports he had not taken his medications for 2 to 3 days due to vomiting large amounts of dark contents. Upon presentation patient's glucose was 1038, BUN 80, creatinine 2.9. He was nonverbal upon arrival and was unable to provide any history. He received IV fluids and an insulin drip was started in the ER. This morning BUN was 71 creatinine was 1.7 acetone level was moderate and blood glucose is 400 at 6 AM. After admitting to the floor ER doctor was called for large amount of dark-colored emesis, gastric occult was positive, will consult general surgery for possible EGD. He did present with duct tape over his right hip wound, when removed it revealed a stage IV pressure ulcer, culture was obtained from right hip wound and Rocephin, clindamycin, and vancomycin restarted. Virus panel, COVID-19 negative. At bedside he is nonverbal, but is responsive to pain. He is currently 99% on 2 L oxygen per nasal cannula 11/06/19 CXR: IMPRESSION: COPD with right perihilar infiltrate Dictated by: Phillips He is very familiar to [facility], he has a history of severe noncompliance, with admissions multiple times for DKA, wounds, and not attending follow-up appointments with primary care and Ortho. Recently he arrived in the [facility] emergency room nonresponsive, blood glucose of 1050 and was intubated. He was then transferred to [facility] for higher level of care care Hospital Course Hospital Course: speech eval:Pureed,Mechanical Soft,Liquid, Pudding Normal/Thin Liquid Response Coughing after swallow,Wet voice Pudding Consistency Liquid Response Residual on tongue Dysphagia Evaluation Mechanical Soft Difficulty chewing,Multiple Food Behavior Response swallow attempts,Residual on tongue Dysphagia Evaluation Summary NSG stated that patient has been coughing following drinking. FIELD ARTILLERY OFFICER reported that patient coughs even when he is not eating. Patient was alert and seen in bed, however, he appeared fatigued throughout evaluation. Patient was presented with trials of thin liquid via spoon x2, cup x1 ( patient independently took consecutive drinks), and straw x3. Patient exhibited coughing and wet vocal quality following 2nd trial of thin via spoon, trial of thin via cup, and following 3rd trial of thin via straw. Patient was presented with trials of NTL via spoon x2, cup x2, and straw x2 with no clinical signs/symptoms of penetration or aspiration observed.
--- NOTE | 2019-11-09 13:35 | HMH.PTEV ---
Physical Therapy Evaluation Rehab PT IP Evaluation Start: 11/09/19 12:55 Freq: ONCE Status: Active Protocol: Document 11/09/19 13:33 PHORELISHA (Rec: 11/09/19 13:35 PHORNE [id number]) Subjective/History History History 59 yowm adm to [facility] with N/V, AMS, general weakness. He reports no steps at his home. Subjective Subjective Pt with no c/o this pm. Rehab PT IP Eval Objective Appearance Patient Behavior Appropriate Patient Orientation Person,Place,Time Difficulty following instructions none Speech Pattern Clear Ambulation Patient Able to Ambulate Yes Ambulation Observation IP General Gait Pattern Observation No Deviations/Normal Ambulation Distance (feet) 20 Ambulation Assistive Device None Ambulation Ability Supervision/Stand by Balance Ability to Arise Able, uses arms to help Sitting Balance Steady, safe Standing Balance Narrow stance w/o support Dynamic Sitting Balance Ability Good Dynamic Standing Balance Ability Good Transfers Bed Transfer Ability Independent Chair Transfer Ability Supervision/Stand by Sit to Stand Bed Transfer Ability Supervision/Stand by Sit to Stand Chair Transfer Ability Supervision/Stand by ROM All Extremities PT ROM Status WFL MMT All Extremities PT MMT WFL Rehab PT IP prob,goals,plan Problems Date of Evaluation: 11/09/19 Discharge Plan PT Discharge Plan Pt is independent with mobility at this time and can return home once medically stable. G -code Required No Eval Complexity Eval Charge Codes 49897 - Moderate Complexity PHYSICIAN CERTIFICATION: I certify the specified therapy services for Erlin Montalvo are required, authorized, and reviewed every 30 days.
--- NOTE | 2019-11-09 13:41 | DIET.NUTRFU ---
Orientation and abdominal symptoms have improved, pt has been able to eat well. BG high- ~300, with some episodes of critical hyperglycemia. 11# weight gain past 4 days. Nutrition counseling given for malnutrition, food insecurity, increased protein needs for ulcer healing, and dm, see nutrition note for full assessment. Pt is malnourished with severe food insecurity and medical noncompliance affecting all aspects of care.
[2019-11-21 14:50] LABS: POC Glucose,Bedside > 600 (70-110)
[2019-11-21 14:50] LABS: POC Glucose,Bedside > 600 (70-110)
== END 2019-11-09 14:26 | disposition home health service (06) | DRG 637 ==
LOC: ER 23:29 → 2ND 11-07 01:15
PROVIDERS: Nurse Practitioner Family; Surgery; Admitting Provider Emergency Medicine; Emergency Provider Emergency Medicine; PCP Emergency Medicine; Visit Provider Emergency Medicine
PROC: 0DJ08ZZ Inspection of Upper Intestinal Tract, Via Natural or Artificial Opening Endoscopic (ICD-10-PCS; CPT 43235; principal; 2019-11-08 12:15)
DX: E11.10 Type 2 diabetes mellitus with ketoacidosis without coma (principal); L89.314 Pressure ulcer of right buttock, stage 4; J18.9 Pneumonia, unspecified organism; R65.10 Systemic inflammatory response syndrome (SIRS) of non-infectious origin without acute organ dysfunction; N17.9 Acute kidney failure, unspecified; E44.0 Moderate protein-calorie malnutrition; R64 Cachexia; Z68.1 Body mass index [BMI] 19.9 or less, adult; B37.81 Candidal esophagitis; J44.9 Chronic obstructive pulmonary disease, unspecified; I10 Essential (primary) hypertension; I25.10 Atherosclerotic heart disease of native coronary artery without angina pectoris; Z95.5 Presence of coronary angioplasty implant and graft; Z79.4 Long term (current) use of insulin; T38.3X6A Underdosing of insulin and oral hypoglycemic [antidiabetic] drugs, initial encounter; Z91.128 Patient's intentional underdosing of medication regimen for other reason; Z59.1 Inadequate housing; K29.70 Gastritis, unspecified, without bleeding
CPT/HCPCS: 43239; 36415; 71045; 80048; 80053; 80305; 81001; 82009; 82272; 82803; 82947; 82962; 83605; 83735; 84484; 85007; 85025; 86328; 87040; 87070; 87077; 87186; 87205; 87581; 87633; 87798; 88305; 92526; 92610; 93005; 94640; 94760; 94761; 96365; 96366; 96367; 96375; 97162; 99285; G0328; J2405; J3370